=== PATIENT | female | born 1985 | race Caucasian/White ===

== ENCOUNTER 2023-09-11 20:33 | Outpatient (REF) | payer MEDICAID, SELFPAY ==
[2023-09-14 10:10] LABS: Age Gdln ACOG Testing Note (.); HPV Aptima Negative (Negative); IGP, Aptima HPV, rfx 16/18,45 Note (.)
== END 2023-09-11 20:34 | disposition home or self-care (01) ==
LOC: LAB 20:33
PROVIDERS: Visit Provider Obstetrics & Gynecology
DX: Z01.419 Encounter for gynecological examination (general) (routine) without abnormal findings (principal)
CPT/HCPCS: 87624; G0145

== ENCOUNTER 2023-09-25 11:02 | Outpatient (OUT) | payer MEDICAID, SELFPAY ==
--- NOTE | 2023-09-25 11:05 | US_ITS ---
[address] [address] Patient Name: MITRA MURPHY MRN: [id number] date: 1985 Sex: F Assigned Patient Location: Current Patient Location: Accession/Order Number: [id number] Exam Date: 09/25/2023 11:08 Report Date: 09/26/2023 00:35 At the request of: KEIKO MIRELES Procedure: US pelvis w/ transvaginal EXAMINATION: US pelvis w/ transvaginal HISTORY: Irregular Menstrual Cycle N92.6 COMPARISON: No relevant comparison available. TECHNIQUE: Transabdominal and/or transvaginal sonographic examination was performed as indicated by examination type. FINDINGS: UTERUS: Normal size and appearance. Uterus size: 8.8 x 5.1 x 3.9 cm ENDOMETRIUM: Normal homogeneous appearance. Endometrial thickness: 11 mm RIGHT OVARY: Contains a 2.2 cm benign-appearing cyst. Duplex Doppler demonstrates normal waveform and flow; resistive index 0.6. Ovary size: 3.6 x 2.8 x 2.4 cm LEFT OVARY: Normal size and appearance. Duplex Doppler demonstrates normal waveform and flow; resistive index 0.5. Ovary size: 2.8 x 2.6 x 1.3 cm CUL-DE-SAC: Unremarkable. No significant free fluid. BLADDER: Unremarkable. OTHER: None. US/US pelvis w/ transvaginal IMPRESSION: 1. No abnormal or suspicious findings to account for patient's symptoms. Electronically authenticated by: VANESA PEDROZA Date: 09/26/2023 00:35
[2023-09-25 12:17] LABS: Basophils Absolute Auto 0.1 10^3/uL (0.0-0.1); Basophils Percent Auto 0.7 % (0.2-2.0); Eosinophils Absolute Auto 0.5 10^3/uL (0.0-0.7); Eosinophils Percent Auto 7.4 % (0.9-7.0); Hemoglobin 11.8 g/dL (12.0-16.0); Immature Granulocytes Abs Auto 0.02 10^3/uL (0.00-0.03); Immature Granulocytes Pct Auto 0.3 % (0.0-0.5); Lymphocytes Absolute Auto 2.6 10^3/uL (1.2-3.8); Lymphocytes Percent Auto 35.9 % (20.5-60.0); Mean Corpuscular HGB Conc 33.7 g/dL (29.9-35.2); Mean Corpuscular Hemoglobin 31.6 pg (26.7-34.0); Mean Corpuscular Volume 93.6 fL (81.0-99.0); Mean Platelet Volume 10.6 fL (9.5-13.5); Monocytes Absolute Auto 0.5 10^3/uL (0.3-0.8); Monocytes Percent Auto 7.1 % (1.7-12.0); Neutrophils Absolute Auto 3.5 10^3/uL (1.4-6.5); Neutrophils Percent Auto 48.6 % (43.0-75.0); Platelet Count 264 10^3/uL (150-450); Red Blood Count 3.74 10^6/uL (4.20-5.40); Red Cell Distribution Width 11.9 % (11.0-15.0); White Blood Count 7.3 10^3/uL (4.0-11.0)
[2023-09-25 12:39] LABS: INR 1.03; Partial Thromboplastin Time 27.9 sec (22.3-36.2); Prothrombin Time 10.9 sec (9.0-11.6)
[2023-09-25 12:40] LABS: Estimated Average Glucose 94 mg/dL; Glycohemoglobin A1C 4.9 % (4.5-6.2)
[2023-09-25 13:01] LABS: Free T4 1.06 ng/dL (0.76-1.46)
[2023-09-25 13:08] LABS: HCG Quantitative <1 mIU/mL; Thyroid Stimulating Hormone 0.477 uIU/mL (0.358-3.740)
== END 2023-09-25 11:03 | disposition home or self-care (01) ==
LOC: US 11:02
PROVIDERS: Visit Provider Obstetrics & Gynecology
DX: N92.6 Irregular menstruation, unspecified (principal)
CPT/HCPCS: 36415; 76830; 76856; 83036; 84439; 84443; 84702; 85025; 85610; 85730

== ENCOUNTER 2024-09-16 19:24 | Outpatient (REF) | payer MEDICAID, SELFPAY ==
--- OUTSIDE RECORDS SUMMARY | 2024-09-16 19:28 | XMS_ITS | CCD ---
Author Organization [facility] Care Team Providers Care Braille Duplicating Machine Operator Name Role Phone DR KEIKO MIRELES Admitting Unavailable DR KEIKO MIRELES Attending Unavailable DR KEIKO MIRELES Consulting Unavailable KEIKO MIRELES Attending Unavailable Allergies Allergy Classification Reported Allergen(s) Allergy Type Date of Onset Reaction(s) Facility (1 source) Acetaminophen / HYDROcodone Drug Allergy 01-11-2017 [facility] Repository (1 source) Cefaclor Drug Allergy 01-11-2017 [facility] Repository (1 source) Penicillins Drug allergy (disorder) 01-11-2017 [facility] Repository Encounters Encounter Date Encounter Type Care Provider Facility Start: 10-10-2023 End: 10-10-2023 ambulatory KEIKO MIRELES Not Available Start: 09-06-2022 End: 09-06-[address] KEIKO MIRELES Facility: Payers Date Payer Category Payer Medicaid [id number] 1985 Unknown [id number] 1985 Unknown [id number] 1959 Unknown [id number] Summary Purpose Family History No Family History Records FoundNo Family History Records Found Advance Directives No Advanced Directives Records FoundNo Advanced Directives Records Found Additional Source Comments INFORMATION SOURCE (unrecogn ized section and content) DATE CREATED AUTHOR 09/06/2022 [facility] DATE CREATED AUTHOR 'S ORGANIZ ATION 10/11/2023 [facility] EPIC FOR RECORDS PERTAINING TO PATIENTS WHO ARE OR HAVE BEEN ENROLLED IN A CHEMICAL DEPENDENCY/SUBSTANCEABUSE PROGRAM, SOME INFORMATION MAY BE OMITTED. This clinical summary was aggregated from multiple sources. Caution should be exercised in using it in the provision of clinical care. This summary normalizes information from multiple sources, and as a consequence, information in this document may materially change the coding, format and clinical context of patient data. In addition, data may be omitted in some cases. CLINICAL DECISIONS SHOULD BE BASED ON THE PRIMARY CLINICAL RECORDS. [facility] [employer] [facility]. provides no warranty or guarantee of the accuracy or completeness of information in this document.
== END 2024-09-16 19:25 | disposition home or self-care (01) ==
LOC: LAB 19:24
PROVIDERS: Visit Provider Obstetrics & Gynecology
DX: Z01.419 Encounter for gynecological examination (general) (routine) without abnormal findings (principal)
CPT/HCPCS: 87624; 88175

== ENCOUNTER 2024-10-18 10:18 | Outpatient (OUT) | payer MEDICAID, SELFPAY ==
--- OUTSIDE RECORDS SUMMARY | 2024-10-18 10:21 | XMS_ITS | CCD ---
Author Organization [facility] Care Team Providers Care Flux Plant Operator Name Role Phone DR KEIKO BRENNAN Admitting Unavailable DR KEIKO BRENNAN Attending Unavailable DR KEIKO BRENNAN Consulting Unavailable Rosemarie Kang MD Unavailable KEIKO BRENNAN Attending Unavailable KEIKO BRENNAN Attending Unavailable Allergies Allergy Classification Reported Allergen(s) Allergy Type Date of Onset Reaction(s) Facility (1 source) Acetaminophen / HYDROcodone Drug Allergy 7 [facility] Repository (1 source) Cefaclor Drug Allergy 7 [facility] Repository (1 source) Penicillins Drug allergy (disorder) 7 [facility] Repository (3 sources) Cefaclor Drug Allergy 3 Rash [facility] (3 sources) penciclovir Drug Allergy 3 Hives, Itching, Rash, Shortness of breath, Swelling, Wheezing [facility] Work Phone: (3 sources) Penicillins Propensity to adverse reactions 3 Rash [facility] Medications Current Medications Medication Drug Class(es) Dates Sig (Normalized) Sig (Original) 27-1 MG tablet (3 sources) Start: 08-05-2024 End: 08-05-2025 take 1 tablet by mouth once daily 27-1 MG tablet Indications: Abnormal uterine bleeding (AUB) Take 27 mg by mouth 1 (one) time each day at the same time 30 tablet 11 08/05/2024 08/05/2025 Active Problems Problem Classification Problem Date Documented Da te Episodic/Chronic Menstrual disorders (2 sources) Irregular periods; Translations: [Irregular menstruation, unspecified] 09-16-2024 Chronic Other endocrine disorders (2 sources) Polycystic ovary syndrome; Translations: [Polycystic ovarian syndrome] 09-16-2024 Chronic Results Test Name Value Interpretation Reference Range Facil ity IGP,APTIMA HPV,AGE GDLNon AGE GDLN ACOG TESTING Note . [facility] Comment on above: TESTS RESULT FLAG UNITS REF RANGE LAB Clinician Provided Cytology Information Source.............Cervix;Endocervix No. of containers..01 ThinPrep Vial Age Algo ACOG Omaira... 31 FLAG LEGEND: L-Low Normal,H-High Normal,LL-Alert Low,HH-Alert High <-Panic Low,>-Panic High,A-Abnormal,AA-Critical Abnormal Performed at: 01 =[address] [place] [address] Nava Almaguer MD, HPV APTIMA Negative Negative [facility] e Comment on above: This nucleic acid amplification test det ects fourteen high- risk HPV types (16,18,31,33,35,39,45,51,52,56,58,59,66,68) without differentiation. Performed at: =[address] [id number] Pinking Sewing Machine Operator: Nava Almaguer MD, Phone: [phone] Performed at: [address] [id number] [employer] Machine Operator: Nava Almaguer MD, Phone: [phone] IGP, APTIMA HPV, RFX 16/18,45 Note . [facility] Comment on above: TESTS RESULT FLAG UNITS REF RANGE LAB DIAGNOSIS: 02 NEGATIVE FOR INTRAEPITHELIAL LESION OR MALIGNANCY. Specimen adequacy: 02 Satisfactory for evaluation. Endocervical and/or squamous metaplastic cells (endocervical component) are present. Performed by: 02 Rock Alonso, Clinical Psychologist ([facility]) . 02 Note: Note 02 The Pap smear is a screening test designed to aid in the detection of premalignant and malignant conditions of the uterine cervix. It is not a diagnostic procedure and should not be used as the sole means of detecting cervical cancer. Both false-positive and false-negative reports do occur. Test Methodology: Note 02 This liquid based ThinPrep(R) pap test was screened with the use of an image guided system. HPV Genotype Reflex Note 02 Criteria not met, HPV Genotype not performed. FLAG LEGEND: L-Low Normal,H-High Normal,LL-Alert Low,HH-Alert High <-Panic Low,>-Panic High,A-Abnormal,AA-Critical Abnormal Performed at: 02 [facility] [address] [address] Nava Almaguer MD, BRUSH-SPATULA CERVIX ENDOCERVIX [facility] Vital Signs Date Time Vital Sign Value Performing Clinician Yudy vu 09-16-2024 11:30-0400 Body mass index (BMI) [Ratio] 24.91 kg/m2 Keiko Mika DO Work Phone: [facility] 09-16-2024 11:30-0400 Body weight 65.83 kg Keiko Mika DO Work Phone: [facility] 09-16-2024 11:30-0400 Diastolic blood pressure 70 mm[Hg] Keiko Mika DO Work Phone: [facility] 09-16-2024 11:30-0400 Systolic blood pressure 110 mm[Hg] Keiko Mika DO Work Phone: [facility] Encounters Encounter Date Encounter Type Care Provider Facility Start: 09-16-2024 End: 09-23-2024 [facility] Result Encounter Keiko Mika DO Work Phone: [facility] External Department Unsolicited Start: 09-16-2024 End: 09-23-2024 [facility] Result Encounter Keiko Mika DO Work Phone: [facility] External Department Unsolicited Start: 09-16-2024 End: 09-16-2024 Patient encounter procedure Keiko Mika DO Work Phone: [facility] Work Phone: Start: 09-16-2024 End: 09-16-2024 Periodic preventive med est patient 18-39 yrs Keiko Mika DO Work Phone: [facility] Comment on above: Well woman exam with routine gynecological exam; PCOS (polycystic ovarian syndrome); Irregular periods/menstrual cycles Start: 09-16-2024 End: 09-16-2024 ambulatory KEIKO MIKA Not Available Start: 10-10-2023 End: 10-10-2023 ambulatory KEIKO BRENNAN Not Available Start: 09-06-2022 End: 09-06-[address] KEIKO BRENNAN Facility:H1 Procedures Date Procedure Procedure Detail Performing Clinician Start: 09-16-2024 IGP,APTIMA HPV,AGE GDLN Keiko Mika DO Work Phone: Plan of Treatment Date Care Activity Detail Author Start: 10-21-2024 End: 10-21-2024 Patient encounter procedure 10/21/2024 11:10 AM EST Office Visit [facility] [address] [place] [id number] Keiko Brennan, DO [address] [place] [address] [facility] Start: 09-16-2024 End: 09-16-2025 Antimullerian hormone (AMH) Antimullerian hormone (AMH) Lab Routine Irregular periods/menstrual cycles Expected: 09/16/2024, Expires: 09/16/2025 [facility] Comment on above: Expected: 09/16/2024 , Expires: 09/16/2025 Start: 09-16-2024 End: 09-16-2025 CBC W Auto Differential panel - Blood CBC and differential Lab Routine Irregular periods/menstrual cycles Expected: 09/16/2024 (Approximate), Expires: 09/16/2025 [facility] Comment on above: Expected: 09/16/2024 (Approximate), Expires: 09/16/2025 Start: 09-16-2024 End: 09-16-2025 DHEA DHEA Lab Routine Irregular periods/menstrual cycles Expected: 09/16/2024, Expires: 09/16/2025 [facility] Comment on above: Expected: 09/16/2024 , Expires: 09/16/2025 Start: 09-16-2024 End: 09-16-2025 DHEA-sulfate DHEA-sulfate Lab Routine Irregular periods/menstrual cycles Expected: 09/16/2024 (Approximate), Expires: 09/16/2025 [facility] Comment on above: Expected: 09/16/2024 (Approximate), Expires: 09/16/2025 Start: 09-16-2024 End: 09-16-2025 Follicle stimulating hormone Follicle stimulating hormone Lab Routine Irregular periods/menstrual cycles Expected: 09/16/2024 (Approximate), Expires: 09/16/2025 [facility] Comment on above: Expected: 09/16/2024 (Approximate), Expires: 09/16/2025 Start: 09-16-2024 End: 09-16-2025 hCG, quantitative, hCG, quantitative, Lab Routine Irregular periods/menstrual cycles Expected: 09/16/2024 (Approximate), Expires: 09/16/2025 [facility] Comment on above: Expected: 09/16/2024 (Approximate), Expires: 09/16/2025 Start: 09-16-2024 End: 09-16-2025 Hemoglobin A1c/Hemoglobin.total in Blood Hemoglobin A1c Lab Routine Irregular periods/menstrual cycles Expected: 09/16/2024 (Approximate), Expires: 09/16/2025 [facility] Comment on above: Expected: 09/16/2024 (Approximate), Expires: 09/16/2025 Start: 09-16-2024 End: 09-16-2025 Luteinizing hormone Luteinizing hormone Lab Routine Irregular periods/menstrual cycles Expected: 09/16/2024 (Approximate), Expires: 09/16/2025 [facility] Comment on above: Expected: 09/16/2024 (Approximate), Expires: 09/16/2025 Start: 09-16-2024 End: 09-16-2025 Thyrotropin [Units/volume] in Serum or Plasma TSH Lab Routine Irregular periods/menstrual cycles Expected: 09/16/2024 (Approximate), Expires: 09/16/2025 [facility] Comment on above: Expected: 09/16/2024 (Approximate), Expires: 09/16/2025 Start: 09-16-2024 End: 09-16-2025 Thyroxine (T4) free [Mass/volume] in Serum or Plasma T4, free Lab Routine Irregular periods/menstrual cycles Expected: 09/16/2024 (Approximate), Expires: 09/16/2025 [facility] Comment on above: Expected: 09/16/2024 (Approximate), Expires: 09/16/2025 Start: 09-16-2024 End: 09-16-2025 US for US PELVIS-TRANSVAG IF INDICATED Imaging Routine Irregular periods/menstrual cycles Expected: 09/16/2024 (Approximate), Expires: 09/16/2025 [facility] Comment on above: Expected: 09/16/2024 (Approximate), Expires: 09/16/2025 Start: 07-28-2024 Influenza vaccination Influenza Vacc ine (#1) [facility] Start: 2016 Screening for malign ant neoplasm of cervix [facility] Start: 2007 Screening for malign ant neoplasm of cervix Pap Smear [facility] Cytology Cervical or vaginal smear or scraping study Pap Smear Pathology and Cytology Routine Well woman exam with routine gynecological exam Ordered: 09/16/2024 [facility] Work Phone: Comment on above: Ordered: 09/16/2024 Human papilloma viru s DNA [Presence] in Unspecified specimen by Probe with amplification HPV DNA probe, amplified Microbiology Routine Well woman exam with routine gynecological exam Ordered: 09/16/2024 [facility] Comment on above: Ordered: 09/16/2024 Payers Date Payer Category Payer Medicaid [facility] [id number] 2023 Medicaid [id number] 1985 Unknown [id number] 1985 Unknown [id number] 1985 Unknown [id number] 1959 Unknown [id number] Social History Date Type Detail Facility Tobacco smoking stat [facility] Tobacco smoking consumption unknown [facility] Start: 1985 Sex assigned at Female [facility] Start: 09-04-2023 Gender identity Identifies as female gender (finding) [facility] Start: 09-04-2023 Sexual orientation Bisexual (finding ) [facility] History of Present illness Narrative 09-16-2024 Arlette Whelan, HOTEL ENGINEER - 09/16/2024 11:00 AM EDT Note Date & Type Note Facility 09-16-2024 History of Presen t illness Narrative Reason for Appointment: Patient ID: Heather Whitten is a 38 y.o. female who presents for Well Women Visit Patient presents today for Annual Exam. MEDICATIONS Current Outpatient Medications Medication Instructions 27-1 MG tablet 27 mg, Oral, Every 24 hours ALLERGIES Allergies Allergen Reactions Penciclovir Hives, Itching, Rash, Shortness of breath, Swelling and Wheezing Ceclor [Cefaclor] Rash Penicillins Rash PROBLEMS Active Ambulatory Problems Diagnosis Date Noted No Active Ambulatory Problems Resolved Ambulatory Problems Diagnosis Date Noted No Resolved Ambulatory Problems Past Medical History: Diagnosis Date Abnormal uterine bleeding Asthma (CMS/HCC) Emotional sensitivity HISTORY PAST MEDICAL HISTORY SOCIAL HISTORY Past Medical History: Diagnosis Date Abnormal uterine bleeding Asthma (CMS/HCC) Emotional sensitivity Social History Tobacco Use Smoking status: Not on file Smokeless tobacco: Not on file Substance Use Topics Alcohol use: Not on file Drug use: Not on file FAMILY HISTORY Family History Problem Relation Name Age of Onset Diabetes Mother Heart disease Mother Asthma Daughter SURGICAL HISTORY Past Surgical History: Procedure Laterality Date PAP SMEAR 09/01/2021 normal REVIEW OF SYSTEMS Review of Systems: Review of Systems All other systems reviewed and are negative. OBJECTIVE Objective: Physical Exam Constitutional: Appearance: Normal appearance. She is well-developed. Genitourinary: Vulva normal. Breasts: Breasts are soft. Right: Normal. Left: Normal. Cardiovascular: Rate and Rhythm: Normal rate and regular rhythm. Pulmonary: Effort: Pulmonary effort is normal. Breath sounds: Normal breath sounds. Abdominal: General: Bowel sounds are normal. There is no distension. Palpations: Abdomen is soft. Tenderness: There is no abdominal tenderness. There is no guarding or rebound. Musculoskeletal: General: No swelling. Normal range of motion. Right lower leg: No edema. Left lower leg: No edema. Neurological: Mental Status: She is alert and oriented to person, place, and time. Skin: General: Skin is warm and dry. Psychiatric: Mood and Affect: Mood normal. Behavior: Behavior normal. Vitals and nursing note reviewed. Exam conducted with a office clerk present. Vitals: Estimated body mass index is 24.91 kg/m as calculated from the following: Height as of 09/11/23: 5' 4 . Weight as of this encounter: 145 lb 1.9 oz. BP: 110/70 Patient's last menstrual period was 09/04/2024. ASSESSMENT & PLAN ICD-10-CM 1. Well woman exam with routine gynecological exam Z01.419 Pap Smear HPV DNA probe, amplified Annual Exam: Patient presents today for an annual exam. Patient states she is doing well and has complaints of NO cycles. Pap was obtained without difficulty. Patient desires to conceive and would like to have cycles. Orders Placed This Encounter Procedures HPV DNA probe, amplified Follow Up: Patient is to return in one year for annual unless needed otherwise. Return to clinic in 4 weeks for fertility after having labs drawn, ultrasound obtained and will then discuss Femara. Documented by Arlette Whelan LPN on behalf of: Keiko Brennan DO documented in this encounter [facility] Evaluation note Note Date & Type Note Facility Evaluation note Diagnosis Well woman exam with routine gynecological exam Routine gynecological examination PCOS (polycystic ovarian syndrome) Polycystic ovaries Irregular periods/menstrual cycles documented in this encounter [facility] Summary Purpose Family History No Family History Records FoundNo Family History Records Found Advance Directives No Advanced Directives Records FoundNo Advanced Directives Records Found Additional Source Comments INFORMATION SOURCE (unrecogn ized section and content) DATE CREATED AUTHOR 09/06/2022 [facility] DATE CREATED AUTHOR AUTHOR'S ORGANIZ ATION 09/17/2024 [facility]ists EPIC Reason for Visit (unrecogniz ed section and content) Reason Comments Well Women Visit Care Teams (unrecognized sec tion and content) Flux Plant Operator Relationship Specialty Start Date End Date Rosemarie Kang MD [address] [place] [address] PCP - [facility]OM[facility] Esquivel TOOL PUSHER 02/26/24 Flux Plant Operator Relationship Specialty Start Date End Date Rosemarie Kang MD [address] [place] [address] PCP - [facility] Esquivel TOOL PUSHER 02/26/24 FOR RECORDS PERTAINING TO PATIENTS WHO ARE [...] BE BASED ON THE PRIMARY CLINICAL RECORDS. [facility] [employer] [facility]. provides no warranty or guarantee of the accuracy or completeness of information in this document.
[2024-10-18 10:33] LABS: Basophils Absolute Auto 0.1 10^3/uL (0.0-0.1); Basophils Percent Auto 0.8 % (0.2-2.0); Eosinophils Absolute Auto 0.4 10^3/uL (0.0-0.7); Eosinophils Percent Auto 6.7 % (0.9-7.0); Hematocrit 37.6 % (36.0-48.0); Hemoglobin 12.6 g/dL (12.0-16.0); Immature Granulocytes Abs Auto 0.02 10^3/uL (0.00-0.03); Immature Granulocytes Pct Auto 0.3 % (0.0-0.5); Lymphocytes Absolute Auto 2.5 10^3/uL (1.2-3.8); Lymphocytes Percent Auto 40.8 % (20.5-60.0); Mean Corpuscular HGB Conc 33.5 g/dL (29.9-35.2); Mean Corpuscular Hemoglobin 30.9 pg (26.7-34.0); Mean Corpuscular Volume 92.2 fL (81.0-99.0); Mean Platelet Volume 8.8 fL (9.5-13.5); Monocytes Absolute Auto 0.5 10^3/uL (0.3-0.8); Monocytes Percent Auto 8.7 % (1.7-12.0); Neutrophils Absolute Auto 2.6 10^3/uL (1.4-6.5); Neutrophils Percent Auto 42.7 % (43.0-75.0); Platelet Count 387 10^3/uL (150-450); Red Blood Count 4.08 10^6/uL (4.20-5.40); Red Cell Distribution Width 11.9 % (11.0-15.0)
--- NOTE | 2024-10-18 10:35 | US_ITS ---
[address] [address] Patient Name: MITRA MURPHY MRN: [id number] date: 1985 Sex: F Assigned Patient Location: Current Patient Location: Accession/Order Number: [id number] Exam Date: 10/18/2024 11:10 Report Date: 10/19/2024 05:16 At the request of: KEIKO MIRELES Procedure: US pelvis w/ transvaginal EXAMINATION: US pelvis w/ transvaginal HISTORY: Pelvic Pain , irregular menstrual cycle COMPARISON: Ultrasound pelvis 09/25/2023 TECHNIQUE: Transabdominal and/or transvaginal sonographic examination was performed as indicated by examination type. FINDINGS: UTERUS: Normal size and appearance. Uterus size: 9.1 x 3.9 x 5.2 cm ENDOMETRIUM: Normal homogeneous appearance. Endometrial thickness: 3 mm RIGHT OVARY: Contains a 1.3 cm dominant follicle. Normal size and appearance of the ovary. Duplex Doppler demonstrates normal waveform and flow; resistive index 0.7. Ovary size: 2.8 x 1.4 x 3.0 cm LEFT OVARY: Normal size and appearance. Duplex Doppler demonstrates normal waveform and flow; resistive index 0.5. Ovary size: 3.5 x 1.9 x 1.6 cm CUL-DE-SAC: Unremarkable. No significant free fluid. BLADDER: Unremarkable. OTHER: None. US/US pelvis w/ transvaginal IMPRESSION: 1. Normal pelvic ultrasound. No abnormal or suspicious findings. Electronically authenticated by: VANESA PEDROZA Date: 10/19/2024 05:16
[2024-10-18 11:21] LABS: Estimated Average Glucose 100 mg/dL; Glycohemoglobin A1C 5.1 % (4.5-6.2)
[2024-10-18 11:26] LABS: Free T4 1.05 ng/dL (0.76-1.46)
[2024-10-18 11:30] LABS: HCG Quantitative <1 mIU/mL; Thyroid Stimulating Hormone 0.529 uIU/mL (0.358-3.740)
[2024-10-19 04:07] LABS: Luteinizing Hormone(LH) 6.5 mIU/mL (.)
[2024-10-21 04:07] LABS: Anti-Mullerian Hormone (AMH) 1.48 ng/mL (.)
== END 2024-10-18 10:19 | disposition home or self-care (01) ==
LOC: US 10:18
PROVIDERS: Visit Provider Obstetrics & Gynecology
DX: N92.6 Irregular menstruation, unspecified (principal)
CPT/HCPCS: 36415; 76830; 76856; 82397; 82626; 82627; 83001; 83002; 83036; 84439; 84443; 84702; 85025

== ENCOUNTER 2025-01-27 09:16 | Outpatient (OUT) | payer MEDICAID, SELFPAY ==
--- OUTSIDE RECORDS SUMMARY | 2025-01-27 09:34 | XMS_ITS | CCD ---
Author Organization [facility] Care Team Providers Care Traffic Ii Manager Name Role Phone DR KEIKO BRENNAN Admitting Unavailable DR KEIKO BRENNAN Attending Unavailable DR KEIKO BRENNAN Consulting Unavailable Rosemarie Kang MD Unavailable KEIKO BRENNAN Attending Unavailable KEIKO BRENNAN Attending Unavailable Allergies Allergy Classification Reported Allergen(s) Allergy Type Date of Onset Reaction(s) Facility (1 source) Acetaminophen / HYDROcodone Drug Allergy 7 [facility] (1 source) Cefaclor Drug Allergy 7 [facility] (1 source) Penicillins Drug allergy (disorder) 7 [facility] (7 sources) Cefaclor Drug Allergy 3 Rash [facility] (7 sources) penciclovir Drug Allergy 3 Hives, Itching, Rash, Shortness of breath, Swelling, Wheezing [facility] Work Phone: (7 sources) Penicillins Propensity to adverse reactions 3 Rash [facility] Medications Current Medications Medication Drug Class(es) Dates Sig (Normalized) Sig (Original) 27-1 MG tablet (7 sources) Start: 08-05-2024 End: 08-05-2025 take 1 tablet by mouth once daily 27-1 MG tablet Indications: Abnormal uterine bleeding (AUB) Take 27 mg by mouth 1 (one) time each day at the same time 30 tablet 11 08/05/2024 08/05/2025 Active Problems Problem Classification Problem Date Documented Da te Episodic/Chronic Menstrual disorders (4 sources) Irregular periods; Translations: [Irregular menstruation, unspecified] 09-16-2024 Chronic Other endocrine disorders (2 sources) Polycystic ovary syndrome; Translations: [Polycystic ovarian syndrome] 09-16-2024 Chronic Results Test Name Value Interpretation Reference Range Facility ALL CBC WITH AUTO DIFFon BASOPHILS ABSOLUTE AUTO 0.1 [facility] Basophils/100 WBC (Bld) 0.8 % 0.2 - 2.0 % [facility] Eosinophils/100 WBC (Bld) 6.7 % 0.9 - 7.0 % [facility] Erythrocyte distribution width (RBC) [Ratio] 11.9 % 11.0 - 15.0 % [facility] Hematocrit (Bld) [Volume fraction] 37.6 % 36.0 - 48.0 % [facility] Hemoglobin (Bld) [Mass/Vol] 12.6 g/dL 12.0 - 16.0 g/dL [facility] IMMATURE GRANULOCYTES ABS AUTO 0.02 [facility] Immature granulocytes/100 WBC (Bld) 0.3 % 0.0 - 0.5 % [facility] Interpretation and review of laboratory results Abnormal [facility] LYMPHOCYTES ABSOLUTE AUTO 2.5 [facility] Lymphocytes/100 WBC (Bld) 40.8 % 20.5 - 60.0 % [facility] MCH (RBC) [Entitic mass] 30.9 pg 26.7 - 34.0 pg [facility] MCHC (RBC) [Mass/Vol] 33.5 g/dL 29.9 - 35.2 g/dL [facility] MCV (RBC) [Entitic vol] 92.2 fL 81.0 - 99.0 fL [facility] MONOCYTES ABSOLUTE AUTO 0.5 [facility] Monocytes/100 WBC (Bld) 8.7 % 1.7 - 12.0 % [facility] NEUTROPHILS ABSOLUTE AUTO 2.6 [facility] Neutrophils/100 WBC (Bld) 42.7 % Low 43.0 - 75.0 % [facility] Platelet mean volume (Bld) [Entitic vol] 8.8 fL Low 9.5 - 13.5 [facility]L [facility] PLT 387 [facility] RBC 4.08 Low [facility] TB WBC 6 [facility] IGP,APTIMA HPV,AGE GDLNon AGE GDLN ACOG TESTING Note . [facility] Comment on above: TESTS RESULT FLAG UN ITS REF RANGE LAB Clinician Provided Cytology Information Source.............Cervix;Endocervix No. of containers..01 ThinPrep Vial Age Algo ACOG Omaira... FLAG LEGEND: L-Low Normal,H-High Normal,LL-Alert Low,HH-Alert High <-Panic Low,>-Panic High,A-Abnormal,AA-Critical Abnormal Performed at: 01 =G [address] [address] Nava Almaguer MD, HPV APTIMA Negative Negative [facility] Comment on above: This nucleic acid am plification test detects fourteen high- risk HPV types (16,18,31,33,35,39,45,51,52,56,58,59,66,68) without differentiation. Performed at: =G - [facility] [id number] Canary Breeder: Nava Almaguer MD, Phone: [phone] Performed at: - [address] [id number] Canary Breeder: Nava Almaguer MD, Phone: [phone] IGP, APTIMA HPV, RFX 16/18,45 Note . [facility] Comment on above: TESTS RESULT FLAG [facility] REF RANGE LAB DIAGNOSIS: 02 NEGATIVE FOR INTRAEPITHELIAL LESION OR MALIGNANCY. Specimen adequacy: 02 Satisfactory for evaluation. Endocervical and/or squamous metaplastic cells (endocervical component) are present. Performed by: 02 Rock Alonso, Machining Supervisor ([facility]) . 02 Note: Note 02 [...] <-Panic Low,>-Panic High,A-Abnormal,AA-Critical Abnormal Performed at: [address] [address] Nava Almaguer MD, BRUSH-SPATULA CERVIX ENDOCERVIX [facility] Vital Signs Date Time Vital Sign Value Performing Clinician Yudy vu 10-21-2024 11:36-0500 Body mass index (BMI) [Ratio] 26.09 kg/m2 Percolate Phone: [facility] 10-21-2024 11:36-0500 Body weight 68.95 kg Percolate Phone: [facility] 10-21-2024 11:36-0500 Diastolic blood pressure 70 mm[Hg] Keiko Mika DO Work Phone: [facility] 10-21-2024 11:36-0500 Systolic blood pressure 130 mm[Hg] Keiko Mika DO Work Phone: [facility] 09-16-2024 11:30-0400 Body mass index (BMI) [Ratio] 24.91 kg/m2 Keiko Mika DO Work Phone: [facility] 09-16-2024 11:30-0400 Body weight 65.83 kg Keiko Mika DO Work Phone: [facility] 09-16-2024 11:30-0400 Diastolic blood pressure 70 mm[Hg] Keiko Mika DO Work Phone: [facility] 09-16-2024 11:30-0400 Systolic blood pressure 110 mm[Hg] Keiko Mika DO Work Phone: [facility] Healthcare Encounters Encounter Date Encounter Type Care Provider Facility Start: 10-21-2024 End: 10-21-2024 Bamboo flowsheet Keiko Mika DO Work Phone: [facility] Start: 10-21-2024 End: 10-21-2024 Bamboo flowsheet Keiko Mika DO Work Phone: [facility] Start: 10-21-2024 End: 10-21-2024 Office outpatient visit 15 minutes Keiko Mika DO Work Phone: [facility] Comment on above: Menorrhagia with irr egular cycle Start: 10-21-2024 End: 10-21-2024 ambulatory KEIKO MIKA Not Available Start: 10-18-2024 End: 10-18-2024 [facility] Result Encounter Keiko Mika DO Work Phone: [facility] External Department Unsolicited Start: 10-18-2024 End: 10-18-2024 [facility]ync Result Encounter Keiko Mika DO Work Phone: [facility] External Department Unsolicited Start: 09-16-2024 End: 09-23-2024 [facility] Result Encounter Keiko Brennan DO Work Phone: [facility] External Department Unsolicited Start: 09-16-2024 End: 09-23-2024 [facility] Result Encounter Keiko Brennan DO Work Phone: [facility] External Department Unsolicited Start: 09-16-2024 End: 09-16-2024 Patient encounter procedure Keiko Brennan DO Work Phone: [facility] Work Phone: Start: 09-16-2024 End: 09-16-2024 Periodic preventive med est patient 18-39 yrs Keiko Brennan DO Work Phone: [facility] Comment on above: Well woman exam with routine gynecological exam; PCOS (polycystic ovarian syndrome); Irregular periods/menstrual cycles Start: 09-16-2024 End: 09-16-2024 ambulatory KEIKO BRENNAN Not Available Start: 09-06-2022 End: 09-06-[address] KEIKO BRENNAN Facility:H1 Procedures Date Procedure Procedure Detail Performing Clinician Start: 10-18-2024 ALL CBC WITH AUTO DIFF Keiko Mika DO Work Phone: Start: 09-16-2024 IGP,APTIMA HPV,AGE GDLN Keiko Brennan DO Work Phone: Start: 09-16-2024 Microscopic observat ion [Identifier] in Cervix by Cyto stain Keiko Mika DO Work Phone: Plan of Treatment Date Care Activity Detail Author Start: 09-16-2027 Screening for malign ant neoplasm of cervix [facility] Start: 02-18-2025 End: 02-18-2025 Patient encounter procedure 02/18/2025 10:10 AM EDT Office Visit [facility] [address] [place] [id number] eKiko Brennan DO [address], [place] [id number] [facility] Start: 10-21-2024 End: 10-21-2024 Patient encounter procedure [facility] Comment on above: Arrived Start: 09-16-2024 End: 09-16-2025 Antimullerian hormone (AMH) Antimullerian hormone (AMH) Lab Routine Irregular periods/menstrual cycles Expected: 09/16/2024, Expires: 09/16/2025 [facility] Comment on above: Expected: 09/16/2024 , Expires: 09/16/2025 Start: 09-16-2024 End: 09-16-2025 CBC W Auto Differential panel - Blood CBC and differential Lab Routine Irregular periods/menstrual cycles Expected: 09/16/2024 (Approximate), Expires: 09/16/2025 [facility] Comment on above: Expected: 09/16/2024 (Approximate), Expires: 09/16/2025 Start: 09-16-2024 End: 09-16-2025 DHEA DHEA Lab Routine Irregular periods/menstrual cycles Expected: 09/16/2024, Expires: 09/16/2025 [facility] Comment on above: Expected: 09/16/2024 , Expires: 09/16/2025 Start: 09-16-2024 End: 09-16-2025 DHEA-sulfate DHEA-sulfate Lab Routine Irregular periods/menstrual cycles Expected: 09/16/2024 (Approximate), Expires: 09/16/2025 [facility] Healthcare Comment on above: Expected: 09/16/2024 (Approximate), Expires: 09/16/2025 Start: 09-16-2024 End: 09-16-2025 Follicle stimulating hormone Follicle stimulating hormone Lab Routine Irregular periods/menstrual cycles Expected: 09/16/2024 (Approximate), Expires: 09/16/2025 [facility] Comment on above: Expected: 09/16/2024 (Approximate), Expires: 09/16/2025 Start: 09-16-2024 End: 09-16-2025 hCG, quantitative, hCG, quantitative, Lab Routine Irregular periods/menstrual cycles Expected: 09/16/2024 (Approximate), Expires: 09/16/2025 [facility] Comment on above: Expected: 09/16/2024 (Approximate), Expires: 09/16/2025 Start: 09-16-2024 End: 09-16-2025 Hemoglobin A1c/Hemoglobin.total in Blood Hemoglobin A1c Lab Routine Irregular periods/menstrual cycles Expected: 09/16/2024 (Approximate), Expires: 09/16/2025 [facility] Comment on above: Expected: 09/16/2024 (Approximate), Expires: 09/16/2025 Start: 09-16-2024 End: 09-16-2025 Luteinizing hormone Luteinizing hormone Lab Routine Irregular periods/menstrual cycles Expected: 09/16/2024 (Approximate), Expires: 09/16/2025 [facility] Comment on above: Expected: 09/16/2024 (Approximate), Expires: 09/16/2025 Start: 09-16-2024 End: 09-16-2025 Thyrotropin [Units/volume] in Serum or Plasma TSH Lab Routine Irregular periods/menstrual cycles Expected: 09/16/2024 (Approximate), Expires: 09/16/2025 [facility] Comment on above: Expected: 09/16/2024 (Approximate), Expires: 09/16/2025 Start: 09-16-2024 End: 09-16-2025 Thyroxine (T4) free [Mass/volume] in Serum or Plasma T4, free Lab Routine Irregular periods/menstrual cycles Expected: 09/16/2024 (Approximate), Expires: 09/16/2025 [facility] Comment on above: Expected: 09/16/2024 (Approximate), Expires: 09/16/2025 Start: 09-16-2024 End: 09-16-2025 US for US PELVIS-TRANSVAG IF INDICATED Imaging Routine Irregular periods/menstrual cycles Expected: 09/16/2024 (Approximate), Expires: 09/16/2025 [facility] Comment on above: Expected: 09/16/2024 (Approximate), Expires: 09/16/2025 Start: 07-28-2024 Influenza vaccination Influenza Vacc ine (#1) [facility] Start: 2016 Screening for malign ant neoplasm of cervix [facility] Start: 2007 Screening for malign ant neoplasm of cervix Pap Smear [facility] Cytology Cervical or vaginal smear or scraping study Pap Smear Pathology and Cytology Routine Well woman exam with routine gynecological exam Ordered: 09/16/2024 [facility] Work Phone: Comment on above: Ordered: 09/16/2024 Human papilloma viru s DNA [Presence] in Unspecified specimen by Probe with amplification HPV DNA probe, amplified Microbiology Routine Well woman exam with routine gynecological exam Ordered: 09/16/2024 [facility] Comment on above: Ordered: 09/16/2024 Payers Date Payer Category Payer Medicaid [facility] [id number] 2023 Medicaid [id number] 1985 Unknown [id number] 1986 Unknown [id number] 1986 Unknown [id number] 1959 Unknown [id number] Social History Date Type Detail Facility Tobacco smoking stat [facility] Tobacco smoking consumption unknown [facility] Start: 1985 Sex assigned at Female [facility] Start: 09-04-2023 Gender identity Identifies as female gender (finding) [facility] Start: 09-04-2023 Sexual orientation Bisexual (finding ) [facility] History of Present illness Narrative 10-21-2024 Carolyn Edwards LPN - 10/21/2024 11:10 AM EST Note Date & Type Note Facility 10-21-2024 History of Presen t illness Narrative Reason for Appointment: Patient ID: Heather Whitten is a 38 y.o. female who presents for Menorrhagia Patient presents today for Follow up appointment to discuss results. and Fertility Follow Up appointment. MEDICATIONS Current Outpatient Medications Medication Instructions 27-1 [...] SYSTEMS Review of Systems: Review of Systems Constitutional: Negative. HENT: Negative. Eyes: Negative. Respiratory: Negative. Cardiovascular: Negative. Gastrointestinal: Negative. Genitourinary: Negative. Musculoskeletal: Negative. Skin: Negative. Neurological: Negative. All other systems reviewed and are negative. Hematological: Negative. Endocrine: Negative. Allergic/Immunologic: Negative. OBJECTIVE Objective: Physical Exam Constitutional: Appearance: Normal appearance. She is well-developed. Cardiovascular: Rate and Rhythm: Normal rate and [...] nursing note reviewed. Exam conducted with a developmental therapist present. Vitals: Estimated body mass index is 26.09 kg/m as calculated from the following: Height as of 09/11/23: 5' 4 . Weight as of this encounter: 152 lb. BP: 130/70 Patient's last menstrual period was 10/13/2024. ASSESSMENT & PLAN ICD-10-CM 1. Menorrhagia with irregular cycle N92.1 Patient presents today to discuss fertility. Patient was instructed to call the office once menstrual cycle begins so femara can be called into patients pharmacy. Patient has been instructed to take Femara on days 3-7 of cycle. On day 21 of cycle patient is to have progesterone labs drawn. Patient was advised to have intercourse on days 12, 14, 16, 18, and 20 of cycle. We will do three rounds of Femara and if patient has not conceived by then, we will perform HSG. Patient has voiced understanding and will call our office for any further questions/concerns. Reviewed labs and ultrasound with pt in detail. No orders of the defined types were placed in this encounter. Follow Up: 4 months Documented by Carolyn Edwards LPN on behalf of: Keiko Brennan DO documented in this encounter [facility] History of Present illness Narrative 09-16-2024 Arlette Whelan LPN - 09/16/2024 11:00 AM EDT Note Date [...] nursing note reviewed. Exam conducted with a developmental therapist present. Vitals: Estimated body mass index is [...] cycles documented in this encounter [facility] Evaluation note Note Date & Type Note Facility Evaluation note Diagnosis Menorrhagia with irregular cycle documented in this encounter [facility] Summary Purpose Family History No Family History Records FoundNo Family History Records Found Advance Directives No Advanced Directives Records FoundNo Advanced Directives Records Found Additional Source Comments INFORMATION SOURCE (unrecogn ized section and content) DATE CREATED AUTHOR 09/06/2022 [facility] DATE CREATED AUTHOR AUTHOR'S ORGANIZ ATION 10/23/2024 [facility] Specialists EPIC Reason for Visit (unrecogniz ed section and content) Reason Comments Well Women Visit Reason Comments Menorrhagia Care Teams (unrecognized sec tion and content) Traffic Ii Manager Relationship Specialty Start Date End Date Rosemarie Kang MD [address] [place] [address] PCP - JOHN Esquivel [facility] 02/26/24 Traffic Ii Manager Relationship Specialty Start Date End Date Rosemarie Kang MD [address] [place] [address] PCP - JOHN Esquivel [facility] 02/26/24 Traffic Ii Manager Relationship Specialty Start Date End Date oRsemarie Kang MD [address] [place] [address] PCP - JOHN Esquivel [facility] 02/26/24 FOR RECORDS PERTAINING TO PATIENTS WHO [...] BE BASED ON THE PRIMARY CLINICAL RECORDS. [facility] [facility]. provides no warranty or guarantee of the accuracy or completeness of information in this document.
[2025-01-28 04:07] LABS: Progesterone 19.9 ng/mL (.)
== END 2025-01-27 09:17 | disposition home or self-care (01) ==
LOC: LAB 09:17
PROVIDERS: Visit Provider Obstetrics & Gynecology
DX: N97.0 Female infertility associated with anovulation (principal)
CPT/HCPCS: 36415; 84144

== ENCOUNTER 2025-02-24 11:51 | Outpatient (OUT) | payer MEDICAID, SELFPAY ==
[2025-02-25 04:14] LABS: Progesterone 20.5 ng/mL (.)
== END 2025-02-24 11:52 | disposition home or self-care (01) ==
LOC: LAB 11:52
PROVIDERS: Visit Provider Obstetrics & Gynecology
DX: N97.0 Female infertility associated with anovulation (principal)
CPT/HCPCS: 36415; 84144

== ENCOUNTER 2025-03-26 08:57 | Outpatient (OUT) | payer MEDICAID, SELFPAY ==
[2025-03-27 08:08] LABS: Progesterone 20.6 ng/mL (.)
== END 2025-03-26 08:58 | disposition home or self-care (01) ==
LOC: LAB 09:00
PROVIDERS: Visit Provider Obstetrics & Gynecology
DX: N97.0 Female infertility associated with anovulation (principal)
CPT/HCPCS: 36415; 84144

== ENCOUNTER 2025-04-25 09:18 | Outpatient (OUT) | payer MEDICAID, SELFPAY ==
--- OUTSIDE RECORDS SUMMARY | 2025-04-25 09:21 | XMS_ITS | Encounter Summary ---
Author Organization [facility] Address [address] [facility] [place] [address] Care Team Providers Care Excellence Consultant Name Role Phone Rosemarie Kang MD Unavailable [phone] Encounter Details Date Type Department Care Team (Late st Contact Info) Description 09/24/2024 Orders Only [facility] [address] [place] [phone] Mckenzie Perez LPN [address] [place], [place] [id number] Social History Tobacco Use Types Packs/Day Years Used Date Smoking Tobacco: Never Assessed Comments Unknown Sex and Gender Information Value Date Recorded Sex Assigned at Female 09/04/2023 9:07 AM EDT Legal Sex Female 11:47 PM EDT Gender Identity Female 09/04/2023 9:07 AM EDT Sexual Orientation Bisexual 09/04/2023 9: 07 AM EDT documented as of this encounter Plan of Treatment Not on file documented as of this encounter Procedures Procedure Name Priority Date/Time Associated Diagnosis Comments PAP SMEAR Routine 09/16/2024 12:00 AM EDT documented in this encounter Results * Pap Smear (09/16/2024 12:00 AM EDT) Swab Cervical swab / Unknown us [facility] Nurse LAB CYTOLOGY ORDERABLES Final Result EXTERNAL LAB documented in this encounter Visit Diagnoses Not on filedocumented in this encounter Care Teams Excellence Consultant Relationship Specialty Start Date End Date Rosemarie Kang MD [address] [place] [address] PCP - [facility] SUPERVISOR REMELT 02/26/24 documented as of this encounter
--- OUTSIDE RECORDS SUMMARY | 2025-04-25 09:21 | XMS_ITS | Encounter Summary ---
Author Organization [facility] Address [address] [place] [address] Care Team Providers Care Microbiology Manager Name Role Phone Rosemarie Kang MD Unavailable Reason for Visit * Reason Comments Med Refill Encounter Details Date Type Department Care Team (Late st Contact Info) Description 02/05/2025 Refill [facility] OB [address] [place] [phone] Ebenezer Brennan DO [address] [facility] [address] Alecia Chao, [facility]11 Anovulation Social History Tobacco Use Types Packs/Day Years [...] on file documented as of this encounter Visit Diagnoses Diagnosis Anovulation Female infertility associated with anovulation documented in this encounter Care Teams Microbiology Manager Relationship Specialty Start Date End Date Rosemarie Kang MD [address] [place] [address] PCP - [facility] CHEMICAL PLANT WORKER 02/26/24 documented as of this encounter
--- OUTSIDE RECORDS SUMMARY | 2025-04-25 09:21 | XMS_ITS | Encounter Summary ---
Author Organization [facility] Address [address] [place] [address] Care Team Providers Care Band Aid Machine Operator Name Role Phone RichjoseRosemarie MD Unavailable Encounter Details Date Type Department Care Team (Late st Contact Info) Description 09/26/2023 Clinisync Result Encounter [facility] External Department Unsolicited Ebenezer Brennan, DO [address] [facility] [place] [address] Social History Tobacco Use Types Packs/Day Years Used Date Smoking Tobacco: Never Assessed Comments Unknown Sex and Gender Information Value Date Recorded Sex Assigned at Female 09/04/2023 9:07 AM EDT Legal Sex Female 11:47 PM EDT Gender Identity Female 09/04/2023 9:07 AM EDT Sexual Orientation Bisexual 09/04/2023 9: 07 AM EDT COVID-19 Exposure Response Date Recorded In the last 10 days, have yo u been in contact with someone who was confirmed or suspected to have Coronavirus/COVID-19? No / Unsure 09/05/2023 6:07 PM EDT documented as of this encounter Plan of Treatment Not on file documented as of this encounter Procedures Procedure Name Priority Date/Time Associated Diagnosis Comments US PELVIS W/ TRANSVAGINAL 09/26/2023 12:35 AM EDT documented in this encounter Results * US PELVIS W/ TRANSVAGINAL (09/26/2023 12:35 AM EDT) Anatomical Region Laterality Modality Other 09/26/2023 12:3 5 AM EDT Narrative 09/26/2023 12:35 AM EDT The [address] [address] Ultrasound Report Signed Patient: Alysia Murphy MR#: [id number] : 1985 Acct:[id number] Age/Sex: 37 / F ADM Date: 09/25/23 Loc: US Attending Dr: Ebenezer Brennan D.O. Ordering Physician: Ebenezer Brennan D.O. Date of Service: 09/25/23 Procedure(s): US pelvis w/ transvaginal Accession Number(s): [id number] cc: Ebenezer Brennan D.O.; Physician,Non-Staff Clotilde The [address] [address] Patient Name: ALYSIA MURPHY MRN: [id number] date: 1985 Sex: F Assigned Patient Location: US Current Patient Location: Accession/Order Number: [id number] Exam Date: 09/25/2023 11:08 Report Date: 09/26/2023 00:35 At the request of: EBENEZER BRENNAN Procedure: US pelvis w/ transvaginal EXAMINATION: US pelvis w/ transvaginal HISTORY: Irregular Menstrual Cycle N92.6 COMPARISON: No relevant comparison available. TECHNIQUE: Transabdominal and/or transvaginal sonographic examination was performed as indicated by examination type. FINDINGS: UTERUS: Normal size and appearance. Uterus size: 8.8 x 5.1 x 3.9 cm ENDOMETRIUM: Normal homogeneous appearance. Endometrial thickness: 11 mm RIGHT OVARY: Contains a 2.2 cm benign-appearing cyst. Duplex Doppler demonstrates normal waveform and flow; resistive index 0.6. Ovary size: 3.6 x 2.8 x 2.4 cm LEFT OVARY: Normal size and appearance. Duplex Doppler demonstrates normal waveform and flow; resistive index 0.5. Ovary size: 2.8 x 2.6 x 1.3 cm CUL-DE-SAC: Unremarkable. No significant free fluid. BLADDER: Unremarkable. OTHER: None. US/US pelvis w/ transvaginal IMPRESSION: 1. No abnormal or suspicious findings to account for patient's symptoms. Electronically authenticated by: GUY GUZMAN Date: 09/26/2023 00:35 Dictated By: Guy Guzman M.D. Signed By: 09/26/23 0149 DD/ 0035 TD/TT: Gluing Machine Offbearer: Procedure Note Radiology, Radiologist, - 09/26/2023 [place] [address] Ultrasound Report Signed Patient: Alysia Murphy TMR#: [id number] : 1985Acct:[id number] Age/Sex: 37 / FADM Date: 09/25/23 Loc: US Attending Dr: Ebenezer Brennan D.O. Ordering Physician: Ebenezer Brennan D.O. Date of Service: 09/25/23 Procedure(s): US pelvis w/ transvaginal Accession Number(s): [id number] cc: Ebenezer Brennan D.O.; Physician,Non-Staff Clotilde The [place] [id number] Patient Name: ALYSIA MURPHY MRN: [facility]:[id number] date: 1985 Sex: F Assigned Patient Location: US Current Patient Location: Accession/Order Number: [id number] Exam Date: 09/25/2023 11:08 Report Date: 09/26/2023 00:35 At the request of: EBENEZER BRENNAN Procedure: US pelvis w/ transvaginal EXAMINATION: US pelvis w/ transvaginal HISTORY: Irregular Menstrual Cycle N92.6 COMPARISON: No relevant comparison available. TECHNIQUE: Transabdominal and/or transvaginal sonographic examination was performed as indicated by examination type. FINDINGS: UTERUS: Normal size and appearance. Uterus size: 8.8 x 5.1 x 3.9 cm ENDOMETRIUM: Normal homogeneous appearance. Endometrial thickness: 11 mm RIGHT OVARY: Contains a 2.2 cm benign-appearing cyst. Duplex Doppler demonstrates normal waveform and flow; resistive index 0.6. Ovary size:3.6 x 2.8 x 2.4 cm LEFT OVARY: Normal size and appearance. Duplex Doppler demonstrates normal waveform and flow; resistive index 0.5. Ovary size: 2.8 x 2.6 x 1.3 cm CUL-DE-SAC: Unremarkable. No significant free fluid. BLADDER: Unremarkable. OTHER: None. US/US pelvis w/ transvaginal IMPRESSION: 1. No abnormal or suspicious findings to account for patient's symptoms. Electronically authenticated by: GUY GUZMAN Date: 09/26/2023 00:35 Dictated By: Guy Guzman M.D. Signed By:09/26/23 0149 DD/ 0035 TD/TT: Gluing Machine Offbearer: us Ebenezer Mika DO [facility] Final Result documented in this encounter Visit Diagnoses Not on filedocumented in this encounter Care Teams Band Aid Machine Operator Relationship Specialty Start Date End Date Rosemarie Kang MD [address] [place] [address] PCP - [facility] SENIOR PRODUCT DEVELOPMENT ENGINEER 02/26/24 documented as of this encounter
--- OUTSIDE RECORDS SUMMARY | 2025-04-25 09:21 | XMS_ITS | Encounter Summary ---
Author Organization [facility] Address [address] [facility] [place] [address] Care Team Providers Care Confectionery Laboratory Manager Name Role Phone RichjoseRosemarie MD Unavailable Encounter Details Date Type Department Care Team (Late st Contact Info) Description 10/19/2024 Clinisync Result Encounter [facility] External Department Unsolicited Ebenezer Brennan, DO [address] [facility] [address] Alecia [place] [place], [place] [id number] Social History Tobacco Use Types Packs/Day Years [...] Associated Diagnosis Comments US PELVIS W/ TRANSVAGINAL 10/19/2024 5:16 AM EST documented in this encounter Results * US PELVIS W/ TRANSVAGINAL (10/19/2024 5:16 AM EST) Anatomical Region Laterality Modality Other 10/19/2024 5:16 AM EST Narrative 10/19/2024 5:19 AM EST The [address] [address] Ultrasound Report Signed Patient: ALYSIA UMRPHY MR#: [id number] : 1985 Acct:[id number] Age/Sex: 38 / F ADM Date: 10/18/24 Loc: US Attending Dr: Ebenezer Brennan D.O. Ordering Physician: Ebenezer Brennan D.O. Date of Service: 10/18/24 Procedure(s): US pelvis w/ transvaginal Accession Number(s): [id number] cc: Ebenezer Brennan D.O.; Physician,Non-Staff M.DEdison [place] [id number] Patient Name: ALYSIA MURPHY MRN: [id number] date: 1985 Sex: F Assigned Patient Location: US Current Patient Location: Accession/Order Number: [id number] Exam Date: 10/18/2024 11:10 Report Date: 10/19/2024 05:16 At the request of: EBENEZER BRENNAN Procedure: US pelvis w/ transvaginal EXAMINATION: US pelvis w/ transvaginal HISTORY: Pelvic Pain , irregular menstrual cycle COMPARISON: Ultrasound pelvis 09/25/2023 TECHNIQUE: Transabdominal and/or transvaginal sonographic examination was performed as indicated by examination type. FINDINGS: UTERUS: Normal size and appearance. Uterus size: 9.1 x 3.9 x 5.2 cm ENDOMETRIUM: Normal homogeneous appearance. Endometrial thickness: 3 mm RIGHT OVARY: Contains a 1.3 cm dominant follicle. Normal size and appearance of the ovary. Duplex Doppler demonstrates normal waveform and flow; resistive index 0.7. Ovary size: 2.8 x 1.4 x 3.0 cm LEFT OVARY: Normal size and appearance. Duplex Doppler demonstrates normal waveform and flow; resistive index 0.5. Ovary size: 3.5 x 1.9 x 1.6 cm CUL-DE-SAC: Unremarkable. No significant free fluid. BLADDER: Unremarkable. OTHER: None. US/US pelvis w/ transvaginal IMPRESSION: 1. Normal pelvic ultrasound. No abnormal or suspicious findings. Electronically authenticated by: GUY GUZMAN Date: 10/19/2024 05:16 Dictated By: Guy Guzman M.D. Signed By: 10/19/2419 DD/ 5 TD/TT: Stripping Shovel Operator: Procedure Note Radiology, Radiologist, - 10/19/2024 [place] [address] Ultrasound Report Signed Patient: ALYSIA MRUPHY TMR#: [id number] : 1985Acct:[id number] Age/Sex: 38 / FADM Date: 10/18/24 Loc: US Attending Dr: Ebenezer Brennan D.O. Ordering Physician: Ebenezer Brennan D.O. Date of Service: 10/18/24 Procedure(s): US pelvis w/ transvaginal Accession Number(s): [id number] cc: Ebenezer Brennan D.O.; Physician,Non-Staff MDeja The [place] [id number] Patient Name: ALYSIA MURPHY MRN: [facility]:[id number] date: 1985 Sex: F Assigned Patient Location: Current Patient Location: Accession/Order Number: [id number] Exam Date: 10/18/2024 11:10 Report Date: 10/19/2024 05:16 At the request of: EBENEZER BRENNAN Procedure: US pelvis w/ transvaginal EXAMINATION: US pelvis w/ transvaginal HISTORY: Pelvic Pain , irregular menstrual cycle COMPARISON: Ultrasound pelvis 09/25/2023 TECHNIQUE: Transabdominal and/or transvaginal sonographic examination was performed as indicated by examination type. FINDINGS: UTERUS: Normal size and appearance. Uterus size: 9.1 x 3.9 x 5.2 cm ENDOMETRIUM: Normal homogeneous appearance. Endometrial thickness: 3 mm RIGHT OVARY: Contains a 1.3 cm dominant follicle. Normal size andappearance of the ovary. Duplex Doppler demonstrates normal waveform and flow; resistive index 0.7. Ovary size: 2.8 x 1.4 x 3.0 cm LEFT OVARY: Normal size and appearance. Duplex Doppler demonstrates normal waveform and flow; resistive index 0.5. Ovary size: 3.5 x 1.9 x 1.6 cm CUL-DE-SAC: Unremarkable. No significant free fluid. BLADDER: Unremarkable. OTHER: None. US/US pelvis w/ transvaginal IMPRESSION: 1. Normal pelvic ultrasound. No abnormal or suspicious findings. Electronically authenticated by: GUY GUZMAN Date: 10/19/2024 05:16 Dictated By: Guy Guzman M.D. Signed By:10/19/2419 DD/ 5 TD/TT: Stripping Shovel Operator: us Ebenezer Mika DO [facility] Final Result documented in this encounter Visit Diagnoses Not on filedocumented in this encounter Care Teams Confectionery Laboratory Manager Relationship Specialty Start Date End Date Richly, Rosemarie Liao MD [address] [place] [address] PCP - [facility] KNOT TIER 02/26/24 documented as of this encounter
--- OUTSIDE RECORDS SUMMARY | 2025-04-25 09:21 | XMS_ITS | Encounter Summary ---
Author Organization [facility] Address [address] [place] [address] Care Team Providers Care Rod Piler Name Role Phone Rosemarie Kang MD Unavailable [phone] Reason for Visit * Reason Comments Med Refill Encounter Details Date Type Department Care Team (Late st Contact Info) Description 11/12/2024 Refill [facility] OB [address] [place] [phone] Ebenezer Brennan DO [address] [facility] [address] Alecia Chao, [facility]11 Anovulation Social History Tobacco Use Types [...] anovulation documented in this encounter Care Teams Rod Piler Relationship Specialty Start Date End Date Rosemarie Kang MD [address] [place] [address] PCP - [facility] COLORING ROOM MAN 02/26/24 documented as of this encounter
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
[2025-04-26 04:07] LABS: Progesterone 4.3 ng/mL (.)
== END 2025-04-25 09:19 | disposition home or self-care (01) ==
LOC: LAB 09:19
PROVIDERS: Visit Provider Obstetrics & Gynecology
DX: N97.0 Female infertility associated with anovulation (principal)
CPT/HCPCS: 36415; 84144

== ENCOUNTER 2025-05-29 08:57 | Outpatient (OUT) | payer MEDICAID, SELFPAY ==
--- OUTSIDE RECORDS SUMMARY | 2025-05-29 09:00 | XMS_ITS | Encounter Summary ---
Author Organization [facility] Address [address] [place] [address] Care Team Providers Care Sexer Name Role Phone Rosemarie Kang MD Unavailable [phone] Reason for Visit * Reason Comments Med Refill Encounter Details Date Type Department Care Team (Late st Contact Info) Description 05/10/2025 Refill [facility] OB [address] [place] [phone] Ebenezer Brennan DO [address] [facility] [place] [address] Anovulation; PCOS (polycystic ovarian syndrome); Irregular menstrual cycle Social History Tobacco Use Types Packs/Day Years Used Date Smoking Tobacco: Never Assessed Comments No Sex and Gender Information Value Date Recorded Sex Assigned at Female 09/04/2023 9:07 AM EDT Legal Sex Female 11:47 PM EDT Gender Identity Female 09/04/2023 9:07 AM EDT Sexual Orientation Bisexual 09/04/2023 9: 07 AM EDT documented as of this encounter Plan of Treatment Not on file documented as of this encounter Visit Diagnoses Diagnosis Anovulation Female infertility associated with anovulation PCOS (polycystic ovarian syndrome) Polycystic ovaries Irregular menstrual cycle documented in this encounter Care Teams Sexer Relationship Specialty Start Date End Date Rosemarie Kang MD PCP - [facility] MANAGER DRUG 02/26/24 documented as of this encounter
--- OUTSIDE RECORDS SUMMARY | 2025-05-29 09:00 | XMS_ITS | Encounter Summary ---
Author Organization [facility] Address [address] [facility] [place] [address] Care Team Providers Care Bus Person Dishwasher Name Role Phone Rosemarie Kang MD Unavailable [phone] Reason for Visit * Reason Comments Med Refill Encounter Details Date Type Department Care Team (Late st Contact Info) Description 05/01/2025 Refill [facility] OB [address] [place] [phone] Ebenezer Brennan DO [address] [place] [address] Female infertility Social History Tobacco Use Types Packs/Day Years Used Date Smoking Tobacco: Never Assessed Comments No Sex and Gender Information Value Date Recorded Sex Assigned at Female 09/04/2023 9:07 AM EDT Legal Sex Female 11:47 PM EDT Gender Identity Female 09/04/2023 9:07 AM EDT Sexual Orientation Bisexual 09/04/2023 9: 07 AM EDT documented as of this encounter Miscellaneous Notes * Telephone Encounter - Sylvia Chaidez MA - 05/06/2025 9:14 AM EDT Pt must call on first day of cycle to request refill documented in this encounter Plan of Treatment Not on file documented as of this encounter Visit Diagnoses Diagnosis Female infertility Female infertility of unspecified origin documented in this encounter Care Teams Bus Person Dishwasher Relationship Specialty Start Date End Date Rosemarie Kang MD PCP - [facility] HIM SPECIALIST 02/26/24 documented as of this encounter
--- OUTSIDE RECORDS SUMMARY | 2025-05-29 09:00 | XMS_ITS | Clinical Summary ---
Author Organization [facility] Address [address] [place] [address] Care Team Providers Care Mailing Section Clerk Name Role Phone Rosemarie Kang MD Unavailable Allergies Active Allergy Reactions Criticality Noted Date Comments Cefaclor Rash Low 01/29/2019 Penciclovir Hives,Itching,Rash,S hortness of breath,Swelling,Wheezing High 09/07/2023 Penicillins Rash Low 01/29/2019 Medications 27-1 MG tabletIndicatio ns:Abnormal uterine bleeding (AUB) Take 27 mg by mouth 1 (one) time each day at the same time 30 tablet 11 08/05/2024 08/05/20 25 Active letrozole (Femara) 2.5 MG chemo tabletIndicatio ns:Anovulation, PCOS (polycystic ovarian syndrome),Irreg ular menstrual cycle Take 2 tablets (5 mg total) by mouth Daily for 5 days. 10 tablet 05/09/2025 05/14/20 25 Encounters Date Type Department Care Team Description 05/10/[address] [facility] [address] [place] [address] Ebenezer Brennan, Anovulation; PCOS (polycystic ovarian syndrome); Irregular menstrual cycle 05/09/[address] [facility] [place] [facility] [place] [address] Ebenezer Brennan, 05/01/[address] [facility] [address] [place] [address] Ebenezer Brennan, Female infertility 04/25/2025 Clinisync Result Encounter NOMS External Department Unsolicited Ebenezer Brennan, DO 04/08/[address] [facility] [address] [place] [address] Arlette Whelan LPN 04/07/[address] [facility] [address] [place] [address] Sylvia Chaidez MA 03/26/2025 Clinisync Result Encounter NOMS External Department Unsolicited Ebenezer Brennan, DO 03/07/[address] [facility] OB [address] [place] [address] Ebenezer Brennan, DO Anovulation 03/06/[address] [facility] [address] [place] [address] Coleen Sykes MA Anovulation from Last 3 Months Family History Medical History Relation Name Comments Asthma Daughter Diabetes Mother Heart disease Mother Relation Name Status Comments Daughter Mother Social History Tobacco Use Types Packs/Day Years Used Date Smoking Tobacco: Never Assessed Comments No Sex and Gender Information Value Date Recorded Sex Assigned at Female 09/04/2023 9:07 AM EDT Legal Sex Female 11:47 PM EDT Gender Identity Female 09/04/2023 9:07 AM EDT Sexual Orientation Bisexual 09/04/2023 9: 07 AM EDT Last Filed Vital Signs Vital Sign Reading Time Taken Comments Blood Pressure 118/68 02/18/2025 10:39 AM EDT Pulse - - Temperature - - Respiratory Rate - - Oxygen Saturation - - Inhaled Oxygen Concentration - - Weight 68.9 kg (152 lb) 02/18/2025 10:39 AM EDT Height 162.6 cm (5' 4 ) 09/11/2023 11:15 AM EDT Body Mass Index 26.09 09/11/2023 11:15 AM EDT Plan of Treatment Health Maintenance Due Date Last Done Comments HPV/Cotest 2016 Influenza Vaccine (#1) 2025 Cervical Cancer Screening 09/16/2027 Pap Smear 09/16/2027 09/16/2024 Procedures Procedure Name Priority Date/Time Associated Diagnosis Comments ALL PROGESTERONE Routine 04/25/2025 9:35 AM EDT ALL PROGESTERONE Routine 03/26/2025 9:05 AM EDT PAP SMEAR Routine 09/16/2024 12:00 AM EDT from Last 3 Months or Most Recently Relevant to Health Maintenance Results * ALL PROGESTERONE (04/25/2025 9:35 AM EDT) Only the most recent of2 resultswithin the time period is included. PROGESTERONE 4.3 . ng/mL [facility] Comment: Follicular phase 0.1 - 0.9 Luteal phase 1.8 - 23.9 Ovulation phase 0.1 - 12.0 First trimester 11.0 - 44.3 Second trimester 25.4 - 83.3 Third trimester 58.7 - 214.0 Postmenopausal 0.0 - 0.1 Performed at: [facility] [address] [id number] Communications Associate: Alireza Banuelos PhD, Phone: [phone] 04/25/2025 9:35 AM EDT 04/25/2025 9:36 AM EDT Narrative [facility] - 04/26/2025 4:07 AM EDT Ebenezer Mika DO [facility] Final Result [facility] * Pap Smear (09/16/2024 12:00 AM EDT) Swab Cervical swab / Unknown Mika Nurse [facility] Ob LAB CYTOLOGY ORDERABLES Final Result EXTERNAL LAB from Last 3 Months or Most Recently Relevant to Health [place] [address] [employer] MEDICAID [place] Care Teams Mailing Section Clerk Relationship Specialty Start Date End Date Pearl, Rosemarie Liao MD PCP - [facility] FRONT DESK ADMIN 02/26/24
--- OUTSIDE RECORDS SUMMARY | 2025-05-29 09:01 | XMS_ITS | Encounter Summary ---
Author Organization [facility] Address [address] [place] [address] Care Team Providers Care Law Examiner Name Role Phone RichjoseRosemarie MD Unavailable Encounter Details Date Type Department Care Team (Late st Contact Info) Description 09/26/2023 Clinisync Result Encounter NOM[facility] External Department Unsolicited Ebenezer Brennan, DO [address] [place] [address] Social History Tobacco Use Types Packs/Day Years [...] EDT Narrative 09/26/2023 12:35 AM EDT The [address] [address] Ultrasound Report Signed Patient: Alysia Murphy MR#: [id number] : 1985 Acct:[id number] Age/Sex: 37 / F ADM Date: 09/25/23 Loc: US Attending Dr: Ebenezer Brennan D.O. Ordering Physician: Ebenezer Brennan D.O. Date of Service: 09/25/23 Procedure(s): US pelvis w/ transvaginal Accession Number(s): [id number] cc: Ebenezer Brennan D.O.; Physician,Non-Staff Clotilde The [address] [address] Patient Name: ALYSIA MURPHY MRN: [id number] date: 1985 Sex: F Assigned Patient Location: US Current Patient Location: Accession/Order Number: [id number] Exam Date: 09/25/2023 11:08 Report Date: 09/26/2023 [...] Signed By: 09/26/23 0149 DD/ 0035 TD/TT: Practice Architect: Procedure Note Radiology, Radiologist, - 09/26/2023 [place] [address] Ultrasound Report Signed Patient: Alysia Murphy TMR#: [id number] : 1985Acct:[id number] Age/Sex: 37 / FADM Date: 09/25/23 Loc: US Attending Dr: Ebenezer Brennan D.O. Ordering Physician: Ebenezer Brennan D.O. Date of Service: 09/25/23 Procedure(s): US pelvis w/ transvaginal Accession Number(s): [id number] cc: Ebenezer Brennan D.O.; Physician,Non-Staff Clotilde The [place] [id number] Patient Name: ALYSIA MURPHY MRN: [facility]:[id number] date: 1985 Sex: F Assigned Patient Location: US Current Patient Location: Accession/Order Number: [id number] Exam Date: 09/25/2023 11:08 Report Date: 09/26/2023 [...] M.D. Signed By:09/26/23 0149 DD/ 0035 TD/TT: Practice Architect: us Ebenezer Mika DO [facility] Final Result documented in this encounter Visit Diagnoses Not on filedocumented in this encounter Care Teams Law Examiner Relationship Specialty Start Date End Date Rosemarie Kang MD PCP - [facility] HONE OPERATOR 02/26/24 documented as of this encounter
--- OUTSIDE RECORDS SUMMARY | 2025-05-29 09:01 | XMS_ITS | Encounter Summary ---
Author Organization [facility] Address [address] [place] [address] Care Team Providers Care Inspector Rough Castings Name Role Phone Rosemarie Kang MD Unavailable Reason for Visit * Reason Comments Med Refill Encounter Details Date Type Department Care Team (Late st Contact Info) Description 02/05/2025 Refill [facility] [address] [place] [address] Ebenezer Brennan DO [address] [facility] [place] [address] Anovulation Social History Tobacco Use Types Packs/Day [...] anovulation documented in this encounter Care Teams Inspector Rough Castings Relationship Specialty Start Date End Date Rosemarie Kang MD PCP - [facility] [employer] 02/26/24 documented as of this encounter
--- OUTSIDE RECORDS SUMMARY | 2025-05-29 09:01 | XMS_ITS | Clinical Summary ---
Author Organization [facility] Address [id number] [address] [place] [address] Care Team Providers Care School Of Nursing Director Name Role Phone No Pcp, No Pcp [...] EDT - 03/06/2025 7:13 PM EDT Emergency [facility] - Emergency [address] [place] [id number] Concussion without loss of consciousness, initial encounter [...] MD on 03/06/2025 6:45 PM Skylar Sargent COMPLIANCE ENGINEER-FREELANCE COURT STENOGRAPHER IMG CT ORDERABLES Fin al Result * [...] MD on 03/06/2025 6:45 PM Skylar Sargent COMPLIANCE ENGINEER-FREELANCE COURT STENOGRAPHER IMG CT ORDERABLES Fin al Result from Last 3 Months Insurance [employer]ICA[employer] Care Teams School Of Nursing Director Relationship Specialty Start Date End Date No Pcp, No Pcp CYNTHIA Mandel [id number] PCP - General 04/22/13
--- OUTSIDE RECORDS SUMMARY | 2025-05-29 09:01 | XMS_ITS | Encounter Summary ---
Author Organization [facility] Address [address] [place] [address] Care Team Providers Care Director Mission Name Role Phone Rosemarie Kang MD Unavailable Reason for Visit * Reason Comments Med Refill Encounter Details Date Type Department Care Team (Late st Contact Info) Description 11/12/2024 Refill [facility] [address] [address] [place] [address] Ebenezer Brennan DO [address] [facility] [place] [address] Anovulation Social History Tobacco Use Types Packs/Day [...] anovulation documented in this encounter Care Teams Director Mission Relationship Specialty Start Date End Date Rosemarie Kang MD PCP - [facility] SPORTS EQUIPMENT SUPERVISOR 02/26/24 documented as of this encounter
--- OUTSIDE RECORDS SUMMARY | 2025-05-29 09:01 | XMS_ITS | Encounter Summary ---
Author Organization [facility] Address [address] [facility] [address] Care Team Providers Care Transportation Attendant Name Role Phone Rosemarie Kang MD Unavailable [phone] Encounter Details Date Type Department Care Team (Late st Contact Info) Description 09/24/2024 Orders Only [facility] [address] [place] [address] Mckenzie Perez LPN [address] [place] [address] Social History Tobacco Use Types Packs/Day Years [...] EDT) Swab Cervical swab / Unknown us Mika Nurse [facility] Ob LAB CYTOLOGY ORDERABLES Final Result EXTERNAL LAB documented in this encounter Visit Diagnoses Not on filedocumented in this encounter Care Teams Transportation Attendant Relationship Specialty Start Date End Date Rosemarie Kang MD PCP - [facility] [place] NAVAL MARINE ENGINEER 02/26/24 documented as of this encounter
--- OUTSIDE RECORDS SUMMARY | 2025-05-29 09:01 | XMS_ITS | Encounter Summary ---
Author Organization [facility] Address [address] [place] [address] Care Team Providers Care Yarn Salvager Name Role Phone RichjoseRosemarie MD Unavailable Encounter Details Date Type Department Care Team (Late st Contact Info) Description 10/19/2024 Clinisync Result Encounter [facility] External Department Unsolicited Ebenezer Brennan, DO [address] [facility] [address] [facility] [address] [facility] [address] [place], [place] [id number] Social History Tobacco Use Types Packs/Day Years [...] EST Narrative 10/19/2024 5:19 AM EST The [address] [address] Ultrasound Report Signed Patient: ALYSIA MURPHY MR#: [id number] : 1985 Acct:[id number] Age/Sex: 38 / F ADM Date: 10/18/24 Loc: US Attending Dr: Ebenezer Brennan D.O. Ordering Physician: Ebenezer Brennan D.O. Date of Service: 10/18/24 Procedure(s): US pelvis w/ transvaginal Accession Number(s): [id number] cc: Ebenezer Brennan D.O.; Physician,Non-Staff M.DEdison [place] [id number] Patient Name: ALYSIA MURPHY MRN: [id number] date: 1985 Sex: F Assigned Patient Location: US Current Patient Location: Accession/Order Number: [id number] Exam Date: 10/18/2024 11:10 Report Date: 10/19/2024 [...] M.D. Signed By: 10/19/2419 DD/ 5 TD/TT: Kennel Manager Dog Track: Procedure Note Radiology, Radiologist, - 10/19/2024 [place] [address] Ultrasound Report Signed Patient: ALYSIA MURPHY TMR#: [id number] : 1985Acct:[id number] Age/Sex: 38 / FADM Date: 10/18/24 Loc: US Attending Dr: Ebenezer Brennan D.O. Ordering Physician: Ebenezer Brennan D.O. Date of Service: 10/18/24 Procedure(s): US pelvis w/ transvaginal Accession Number(s): [id number] cc: Ebenezer Brennan D.O.; Physician,Non-Staff MDeja The [place] [id number] Patient Name: ALYSIA MURPHY MRN: [facility]:[id number] date: 1985 Sex: F Assigned Patient Location: Current Patient Location: Accession/Order Number: [id number] Exam Date: 10/18/2024 11:10 Report Date: 10/19/2024 [...] 05:16 Dictated By: Guy Guzman M.D. Signed By:10/19/24 0519 DD/ TD/TT: Kennel Manager Dog Track: us Ebenezer Mika DO [facility] Final Result documented in this encounter Visit Diagnoses Not on filedocumented in this encounter Care Teams Yarn Salvager Relationship Specialty Start Date End Date Wonderly, Rosemarie Liao MD PCP - [facility] TALCER 02/26/24 documented as of this encounter
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
== END 2025-05-29 08:58 | disposition home or self-care (01) ==
PROVIDERS: Visit Provider Obstetrics & Gynecology
DX: N97.0 Female infertility associated with anovulation (principal)
CPT/HCPCS: 36415; 84144

== ENCOUNTER 2025-06-29 10:41 | Outpatient (RCR) | payer MEDICAID, SELFPAY | END 2025-07-26 23:59 | disposition home or self-care (01) | LOC: LAB 10:41 | PROVIDERS: Visit Provider Obstetrics & Gynecology | DX: N97.0 Female infertility associated with anovulation (principal) | CPT/HCPCS: 36415; 84144 ==

== ENCOUNTER 2025-07-29 08:40 | Outpatient (OUT) | payer MEDICAID, SELFPAY ==
--- OUTSIDE RECORDS SUMMARY | 2025-07-29 08:44 | XMS_ITS | Clinical Summary ---
Author Organization Med-Teks tem Address [id number] [address] [place] [address] Care Team Providers Care Shredder Tender Peat Name Role Phone No Pcp, No Pcp [...] Active Active Problems No known active problems Social History Tobacco Use Types Packs/Day Years [...] 09/16/2027 09/16/2024 Medical Devices Not on file Insurance [facility] MEDICAID AUTO INSURANCE Care Teams Shredder Tender Peat Relationship Specialty Start Date End Date No Pcp, [place] [address] PCP - General 04/22/13
--- OUTSIDE RECORDS SUMMARY | 2025-07-29 08:44 | XMS_ITS | Encounter Summary ---
Author Organization [facility] Address [address] [facility] [place] [address] Care Team Providers Care Supervisor Process Testing Name Role Phone Pearl Rosemarie Liao MD Unavailable [phone] Reason for Visit * Reason Comments Med Refill Encounter Details Date Type Department Care Team (Late st Contact Info) Description 05/01/2025 Refill [facility] [address] [place] [phone] Ebenezer Brennan DO [address] [facility] [address] [place]cia [place]ao, [facility]11 Female infertility Social History Tobacco Use Types [...] documented in this encounter Plan of Treatment Upcoming Encounters Date Type Department Care Team (Late st Contact Info) Description 09/18/2025 10:00 AM EDT Procedure Visit [facility] Zhanna [facility] [address] [place] [phone] Luna Hill PA [address] [place] [address] [place] [address] documented as of this encounter Visit Diagnoses Diagnosis Female infertility Female infertility of unspecified origin documented in this encounter Care Teams Supervisor Process Testing Relationship Specialty Start Date End Date Wonderly, Rosemarie Liao MD PCP - [facility] ENGLISH PROFESSOR 02/26/24 documented as of this encounter
--- OUTSIDE RECORDS SUMMARY | 2025-07-29 08:44 | XMS_ITS | Encounter Summary ---
Author Organization [facility] Address [address] [facility] [place] [address] Care Team Providers Care Medical Record Clerk Name Role Phone PearlRosemarie MD Unavailable Encounter Details Date Type Department Care Team (Late st Contact Info) Description 09/24/2024 Orders Only JOHN CO[facility]URN [address] [place] [address] [place] [address] Mckenzie Perez LPN [address] [place] [address] Social History Tobacco Use Types Packs/Day Years Used Date Smoking Tobacco: Never Assessed Comments Unknown Sex and Gender Information Value Date Recorded Sex Assigned at Female 09/04/2023 9:07 AM EDT Legal Sex Female 11:47 PM EDT Gender Identity Female 09/04/2023 9:07 AM EDT Sexual Orientation Bisexual 09/04/2023 9: 07 AM EDT documented as of this encounter Plan of Treatment Upcoming Encounters Date Type Department Care Team (Late st Contact Info) Description 09/18/2025 10:00 AM EDT Procedure Visit [facility] Zhanna [facility] [address] [facility] [place] [address] Luna Hill PA [address] [facility] [address] [place], [place] [id number] documented as of this encounter Procedures Procedure [...] on filedocumented in this encounter Care Teams Medical Record Clerk Relationship Specialty Start Date End Date Wonderly, Rosemarie Liao MD PCP - [facility] PHOTOCOPYING MACHINE OPERATOR 02/26/24 documented as of this encounter
--- OUTSIDE RECORDS SUMMARY | 2025-07-29 08:44 | XMS_ITS | Encounter Summary ---
Author Organization [facility] Address [address] [facility] [place] [address] Care Team Providers Care Vc++ Developer Name Role Phone Rosemarie Kang MD Unavailable [phone] Reason for Visit * Reason Comments Med Refill Encounter Details Date Type Department Care Team (Late Contact Info) Description 11/12/2024 Refill [facility] [address] [facility] [place] [phone] Ebenezer Brennan DO [address] [facility] [address] Alecia Chao, [facility]11 Anovulation Social History Tobacco Use Types Packs/Day [...] Description 09/18/2025 10:00 AM EDT Procedure Visit [facility] [address] [facility] [place] [address] Luna Hill PA [address] [facility] [address] [place], [place] [id number] documented as of this encounter Visit Diagnoses Diagnosis Anovulation Female infertility associated with anovulation documented in this encounter Care Teams Vc++ Developer Relationship Specialty Start Date End Date Rosemarie Kang MD PCP - [facility] TIRE REGROOVING MACHINE OPERATOR 02/26/24 documented as of this encounter
--- OUTSIDE RECORDS SUMMARY | 2025-07-29 08:44 | XMS_ITS | Encounter Summary ---
Author Organization [facility] Address [address] [facility] [place] [address] Care Team Providers Care Alliances Consultant Name Role Phone Rosemarie Kang MD Unavailable [phone] Reason for Visit * Reason Comments Med Refill Encounter Details Date Type Department Care Team (Late Contact Info) Description 02/05/2025 Refill [facility] [address] [facility] [phone] Ebenezer Brennan DO [address] [facility] [address] Alecia Chao, [facility]11 Anovulation Social History Tobacco Use Types Packs/Day [...] AM EDT Procedure Visit [facility] [address] [facility] [place] [phone] Luna Hill PA [address] [facility] [address] [place], [place] [id number] documented as of this encounter Visit Diagnoses Diagnosis Anovulation Female infertility associated with anovulation documented in this encounter Care Teams Alliances Consultant Relationship Specialty Start Date End Date Rosemarie Kang MD PCP - [facility] GOLF CADDY 02/26/24 documented as of this encounter
--- OUTSIDE RECORDS SUMMARY | 2025-07-29 08:44 | XMS_ITS | Clinical Summary ---
Author Organization [facility] Address [address] [facility] [place] [address] Care Team Providers Care Instructional Media Services Technician Name Role Phone Rosemarie Kang MD Unavailable Allergies Active Allergy Reactions Criticality Noted Date Comments Cefaclor Rash Low 01/29/2019 Penciclovir Hives,Itching,Rash,S hortness of breath,Swelling,Wheezing High 09/07/2023 Penicillins Rash Low 01/29/2019 Medications 27-1 MG tabletIndicatio ns:Abnormal uterine bleeding (AUB) Take 27 mg by mouth 1 (one) time each day at the same time 30 tablet 11 5 07/08/20 26 Active 27-1 MG tabletIndicatio ns:Abnormal uterine bleeding (AUB) Take 27 mg by mouth 1 (one) time each day at the same time 30 tablet 11 4 07/08/20 25 Discontinue d(Reorder) letrozole (Femara) 2.5 MG chemo tabletIndicatio ns:Anovulation Take 2 tablets (5 mg total) by mouth Daily for 5 days. 10 tablet 5 07/08/20 25 Discontinue d(Reorder) letrozole (Femara) 2.5 MG chemo tabletIndicatio ns:Anovulation Take 2 tablets (5 mg total) by mouth Daily for 5 days. 10 tablet 5 07/14/20 25 Encounters Date Type Department Care Team Description 07/08/2025 Refill [facility] [address] [place] [address] [place] [phone] Ebenezer Brennan, Anovulation 07/04/2025 Refill [facility] [address] [facility] [place] [address] Ebenezer Brennan DO Anovulation; Abnormal uterine bleeding (AUB) 06/29/2025 Clinisync Result Encounter [facility] External Department Unsolicited Ebenezer Brennan, 06/09/2025 Refill [facility] [place] [facility] [address] [facility] [place] [address] WilRadha andino, COFFEE MACHINE TECHNICIAN Anovulation 06/09/2025 Telephone [facility] [address] [facility] [place] [address] Wilthu Radha, COFFEE MACHINE TECHNICIAN 05/29/2025 Clinisync Result Encounter [facility] External Department Unsolicited Ebenezer Brennan, 05/10/2025 Refill [facility] [address] [facility] [place] [address] Ebenezer Brennan, Anovulation; PCOS (polycystic ovarian syndrome); Irregular menstrual cycle 05/09/2025 Telephone [facility] [address] [facility] [place] [address] Ebenezer Brennan, 05/01/2025 Refill [facility] [address] [facility] [place] [address] Ebenezer Brennan, Female infertility from Last 3 Months Family History Medical [...] 09/11/2023 11:15 AM EDT Plan of Treatment Upcoming Encounters Date Type Department Care Team (Late st Contact Info) Description 09/18/2025 10:00 AM EDT Procedure Visit [facility] [address] [facility] [place] [address] Luna Hill PA [address] [facility] [place] [address] Health Maintenance Due Date Last Done Comments HPV/Cotest 2016 Influenza Vaccine (#1) 2025 Cervical Cancer Screening 09/16/2027 Pap Smear 09/16/2027 09/16/2024 Procedures Procedure Name Priority Date/Time Associated Diagnosis Comments ALL PROGESTERONE Routine 06/29/2025 10:5 2 AM EDT ALL PROGESTERONE Routine 05/29/2025 9:07 AM EDT PAP SMEAR Routine 09/16/2024 12:00 AM EDT from Last 3 Months or Most Recently Relevant to Health Maintenance Results * ALL PROGESTERONE (06/29/2025 10:52 AM EDT) Only the most recent of2 resultswithin the time period is included. PROGESTERONE 27.1 . ng/mL [facility] Comment: Follicular phase 0.1 - 0.9 Luteal phase 1.8 - 23.9 Ovulation phase 0.1 - 12.0 First trimester 11.0 - 44.3 Second trimester 25.4 - 83.3 Third trimester 58.7 - 214.0 Postmenopausal 0.0 - 0.1 Performed at: - [facility] [id number] Plastic Maker: Alireza Banuelos PhD, Phone: [phone] 06/29/2025 10:5 2 AM EDT 06/29/2025 10:52 AM EDT Narrative [facility] - 06/30/2025 7:07 AM EDT us Ebenezer Dodsono DO [facility] Final Result [facility] * Pap Smear (09/16/2024 12:00 AM EDT) Swab Cervical swab / Unknown Mika Nurse [facility] CYTOLOGY ORDERABLES Final Result EXTERNAL LAB from Last 3 Months or Most Recently Relevant to Health Maintenance [place] [address] [place] [employer] MEDICAID [place] Care Teams Instructional Media Services Technician Relationship Specialty Start Date End Date Rosemarie Kang MD PCP - [facility] CUSTOMS COMPLIANCE MANAGER 02/26/24
--- OUTSIDE RECORDS SUMMARY | 2025-07-29 08:44 | XMS_ITS | Encounter Summary ---
Author Organization [facility] Address [address] [facility] [place] [address] Care Team Providers Care Beaver Trapper Name Role Phone Pearl Rosemarie Liao MD Unavailable Encounter Details Date Type Department Care Team (Late st Contact Info) Description 09/26/2023 Clinisync Result Encounter [facility] External Department Unsolicited Keiko Brennan DO [address] [facility] [address] [place], [place] [phone] Social History Tobacco Use Types Packs/Day Years [...] 10:00 AM EDT Procedure Visit [facility]anna [facility]BG[facility] [address] [facility] [phone] Luna Hill PA [address] [facility] [place] [address] documented as of this encounter Procedures Procedure Name Priority Date/Time Associated Diagnosis Comments US PELVIS W/ TRANSVAGINAL 09/26/2023 12:35 AM EDT documented in this encounter Results * US PELVIS W/ TRANSVAGINAL (09/26/2023 12:35 AM EDT) Anatomical Region Laterality Modality Other 09/26/2023 12:3 5 AM EDT Narrative 09/26/2023 12:35 [place] [address] Ultrasound Report Signed Patient: Alysia Murphy MR#: [id number] : 1985 Acct:[id number] Age/Sex: 37 / F ADM Date: 09/25/23 Loc: US Attending Dr: Keiko Brennan D.O. Ordering Physician: Keiko Brennan D.O. Date of Service: 09/25/23 Procedure(s): US pelvis w/ transvaginal Accession Number(s): [id number] cc: Keiko Brennan D.O.; Physician,Non-Staff M.DEdison [place] [id number] Patient Name: ALYSIA MURPHY MRN: [id number] date: 1985 Sex: F Assigned Patient Location: Current Patient Location: Accession/Order Number: [id number] Exam Date: 09/25/2023 11:08 Report Date: 09/26/2023 00:35 At the request of: KEIKO BRENNAN Procedure: US pelvis w/ transvaginal EXAMINATION: [...] Signed By: 09/26/23 0149 DD/ 0035 TD/TT: Gang Bore Operator: Procedure Note Radiology, Radiologist, MD - 09/26/2023 [place] [address] Ultrasound Report Signed Patient: Alysia Murphy TMR#: [id number] : 1985Acct:[id number] Age/Sex: 37 / FADM Date: 09/25/23 Loc: US Attending Dr: Keiko Brennan D.O. Ordering Physician: Keiko Brennan D.O. Date of Service: 09/25/23 Procedure(s): US pelvis w/ transvaginal Accession Number(s): [id number] cc: Keiko Brennan D.O.; Physician,Non-Staff Clotilde The [place] [id number] Patient Name: ALYSIA MURPHY MRN: [id number] date: 1985 Sex: F Assigned Patient Location: US Current Patient Location: Accession/Order Number: [id number] Exam Date: 09/25/2023 11:08 Report Date: 09/26/2023 00:35 At the request of: KEIKO BRENNAN Procedure: US pelvis w/ transvaginal EXAMINATION: [...] M.D. Signed By:09/26/23 0149 DD/ 0035 TD/TT: Gang Bore Operator: us Keiko Mika DO [facility] Final Result documented in this encounter Visit Diagnoses Not on filedocumented in this encounter Care Teams Beaver Trapper Relationship Specialty Start Date End Date Richly, Rosemarie Liao MD PCP - JOHN APONTE 02/26/24 documented as of this encounter
--- OUTSIDE RECORDS SUMMARY | 2025-07-29 08:44 | XMS_ITS | Encounter Summary ---
Author Organization [facility] Address [address] [facility] [place] [address] Care Team Providers Care Assembling Motor Builder Name Role Phone Pearl Rosemarie Liao MD Unavailable Encounter Details Date Type Department Care Team (Late st Contact Info) Description 10/19/2024 Clinisync Result Encounter [facility] External Department Unsolicited Ebenezer Brennan DO [address] [facility] [place] [address] Social History Tobacco Use Types Packs/Day Years [...] EDT Procedure Visit [facility] Zhanna [facility] [address] [place] [address] Luna Hill PA [address] [facility] [place] [address] documented as of this encounter Procedures Procedure Name Priority Date/Time Associated Diagnosis Comments US PELVIS W/ TRANSVAGINAL 10/19/2024 5:16 AM EST documented in this encounter Results * US PELVIS W/ TRANSVAGINAL (10/19/2024 5:16 AM EST) Anatomical Region Laterality Modality Other 10/19/2024 5:16 AM EST Narrative 10/19/2024 5:19 [place] [address] Ultrasound Report Signed Patient: ALYSIA MURPHY MR#: [id number] : 1985 Acct:[id number] Age/Sex: 38 / F ADM Date: 10/18/24 Loc: US Attending Dr: Ebenezer Brennan D.O. Ordering Physician: Ebenezer Brennan D.O. Date of Service: 10/18/24 Procedure(s): US pelvis w/ transvaginal Accession Number(s): [id number] cc: Ebenezer Brennan D.O.; Physician,Non-Staff Clotilde [address] [address] Patient Name: ALYSIA MURPHY MRN: [facility]:[id number] date: 1985 Sex: F Assigned Patient Location: Current Patient Location: Accession/Order Number: [id number] Exam Date: 10/18/2024 11:10 Report Date: 10/19/2024 [...] Dictated By: Guy Guzman M.D. Signed By: 10/19/24518 DD/ 5 TD/TT: Gusset Edger: Procedure Note Radiology, Radiologist, MD - 10/19/2024 [place] [address] Ultrasound Report Signed Patient: ALYSIA MURPHY TMR#: [id number] : 1985Acct:[id number] Age/Sex: 38 / FADM Date: 10/18/24 Loc: US Attending Dr: Ebenezer Brennan D.O. Ordering Physician: Ebenezer Brennan D.O. Date of Service: 10/18/24 Procedure(s): US pelvis w/ transvaginal Accession Number(s): [id number] cc: Ebenezer Brennan D.O.; Physician,Non-Staff Clotilde The [place] [id number] Patient Name: ALYSIA MURPHY MRN: [id number] date: 1985 Sex: F Assigned Patient Location: US Current Patient Location: Accession/Order Number: [id number] Exam Date: 10/18/2024 11:10 Report Date: 10/19/2024 [...] By: Guy Guzman M.D. Signed By:10/19/2419 DD/ 05 TD/TT: Gusset Edger: us Ebenezer Mika DO [facility] Final Result documented in this encounter Visit Diagnoses Not on filedocumented in this encounter Care Teams Assembling Motor Builder Relationship Specialty Start Date End Date Rosemarie Kang MD PCP - [facility] MARKETING SUPPORT COORDINATOR 02/26/24 documented as of this encounter
--- OUTSIDE RECORDS SUMMARY | 2025-07-29 08:51 | XMS_ITS | CCD ---
Author Organization [facility] Care Team Providers Care Brim Shaper Name Role Phone DR KEIKO BRENNAN Admitting Unavailable DR KEIKO BRENNAN Attending Unavailable DR KEIKO BRENNAN Consulting Unavailable Rosemarie Kang MD Unavailable KEIKO BRENNAN Attending Unavailable KEIKO BRENNAN Attending Unavailable KEIKO BRENNAN Attending Unavailable NO PCP, NO PCP Primary Care Unavailable Rosemarie Kang MD Unavailable [phone] Allergies Allergy Classification Reported Allergen(s) Allergy Type Date of Onset Reaction(s) Facility (1 source) Acetaminophen / HYDROcodone Drug Allergy 7 [facility] Repository (1 source) Cefaclor Drug Allergy 7 [facility] Repository (2 sources) Penicillins; Translations: [PENICILLINS] Drug allergy (disorder) 7 [facility] Repository (16 sources) Cefaclor; Translations: [CEFACLOR] Drug Allergy 9 Rash [facility] (15 sources) penciclovir Drug Allergy 3 Hives, Itching, Rash, Shortness of breath, Swelling, Wheezing [facility] Work Phone: (15 sources) Penicillins Propensity to adverse reactions 9 Rash [facility] Medications Current Medications Medication Drug Class(es) Dates Sig (Normalized) Sig (Original) 27-1 MG tablet (15 sources) Start: 08-05-2024 End: 08-05-2025 take 1 [...] Reference Range Facility ALL PROGESTERONEon 5 PROGESTERONE 27.1 ng/mL . [facility] are Comment on above: Follicular phase 0.1 - 0.9 Luteal phase 1.8 - 23.9 Ovulation phase 0.1 - 12.0 First trimester 11.0 - 44.3 Second trimester 25.4 - 83.3 Third trimester 58.7 - 214.0 Postmenopausal 0.0 - 0.1 Performed at: [facility] [id number] Performance Architect: Alireza Banuelos PhD, Phone: [phone] [facility] ALL PROGESTERONEon 5 PROGESTERONE 33.3 ng/mL . [facility] are Comment on above: Follicular phase 0.1 - 0.9 Luteal phase 1.8 - 23.9 Ovulation phase 0.1 - 12.0 First trimester 11.0 - 44.3 Second trimester 25.4 - 83.3 Third trimester 58.7 - 214.0 Postmenopausal 0.0 - 0.1 Performed at: [facility] [place] [id number] Performance Architect: Alireza Banuelos PhD, Phone: [phone] [employer] ALL PROGESTERONEon 5 PROGESTERONE 4.3 ng/mL . [facility] are Comment on above: Follicular phase 0.1 - 0.9 Luteal phase 1.8 - 23.9 Ovulation phase 0.1 - 12.0 First trimester 11.0 - 44.3 Second trimester 25.4 - 83.3 Third trimester 58.7 - 214.0 Postmenopausal 0.0 - 0.1 Performed at: [facility] [employer] [id number] Performance Architect: Alireza Banuelos PhD, Phone: [phone] [employer] ALL PROGESTERONEon 5 PROGESTERONE 20.6 ng/mL . [facility] are Comment on above: Follicular phase 0.1 - 0.9 Luteal phase 1.8 - 23.9 Ovulation phase 0.1 - 12.0 First trimester 11.0 - 44.3 Second trimester 25.4 - 83.3 Third trimester 58.7 - 214.0 Postmenopausal 0.0 - 0.1 Performed at: [facility] [employer] [id number] Performance Architect: Alireza Banuelos PhD, Phone: [phone] [employer] CT BRAIN WO CONTon 5 CT BRAIN WO CONT CT BRAIN WO [...] Gonzalez MD on 03/06/2025 6:[address] [facility] CT CERVICAL SPINE WO CONTon 03-06-2025 CT [...] Gonzalez MD on 03/06/2025 6:[address] [facility] ALL PROGESTERONEon PROGESTERONE 20.5 ng/mL . [facility] are Comment on above: Follicular phase 0.1 - 0.9 Luteal phase 1.8 - 23.9 Ovulation phase 0.1 - 12.0 First trimester 11.0 - 44.3 Second trimester 25.4 - 83.3 Third trimester 58.7 - 214.0 Postmenopausal 0.0 - 0.1 Performed at: [facility] [address] [id number] Performance Architect: Alireza Banuelos PhD, Phone: [phone] [facility] ( test) Ql (U)o n 02-18-2025 Interpretation and review of laboratory results Normal [facility] Preg Test, Ur Negative Negative [facility] Urinalysis macro (dipstick) panel (U)on 02-18-2025 Bilirubin, UA Negative Negative - 4(70) +++ mg/dL [facility] Blood, UA Positive Negative - 50 Jack/mcL [facility] Comment on above: trace Clarity, UA Clear [facility] re Color, UA Yellow [facility] e Glucose, UA Negative Negative - 1999(110) ++++ mg/dL [facility] Interpretation and review of laboratory results Abnormal [facility] Ketones, UA Negative Negative - 160(16) ++++ mg/dL [facility] Leukocytes, UA Negative Negative - 500+++ Osiris/mcL [facility] Nitrite, UA Negative Negative - Positive [facility] pH, UA 8.5 5 - 9 [facility] Protein, UA Negative Negative - 1999(20) ++++ mg/dL [facility] Spec Grav, UA 1.015 1 - 1.03 [facility] Urobilinogen, UA 0.2 0.2 - 12 mg/dL [facility] e ALL PROGESTERONEon PROGESTERONE 19.9 ng/mL . [facility] are Comment on above: Follicular phase 0.1 - 0.9 Luteal phase 1.8 - 23.9 Ovulation phase 0.1 - 12.0 First trimester 11.0 - 44.3 Second trimester 25.4 - 83.3 Third trimester 58.7 - 214.0 Postmenopausal 0.0 - 0.1 Performed at: [facility] [address] [id number] Performance Architect: Alireza Banuelos PhD, Phone: [phone] [facility] ALL CBC WITH AUTO DIFFon BASOPHILS ABSOLUTE AUTO 0.1 [facility] Basophils/100 WBC (Bld) 0.8 % 0.2 - 2.0 % [facility] Eosinophils/100 WBC (Bld) 6.7 % 0.9 - 7.0 % [facility] Erythrocyte distribution width (RBC) [Ratio] 11.9 % 11.0 - 15.0 % [facility] Hematocrit (Bld) [Volume fraction] 37.6 % 36.0 - 48.0 % [facility] e Hemoglobin (Bld) [Mass/Vol] 12.6 g/dL 12.0 - 16.0 g/dL [facility] IMMATURE GRANULOCYTES ABS AUTO 0.02 [facility] Immature granulocytes/100 WBC (Bld) 0.3 % 0.0 - 0.5 % [facility] Interpretation and review of laboratory results Abnormal [facility] LYMPHOCYTES ABSOLUTE AUTO 2.5 [facility] Lymphocytes/100 WBC (Bld) 40.8 % 20.5 - 60.0 % [facility] MCH (RBC) [Entitic mass] 30.9 pg 26.7 - 34.0 pg [facility] MCHC (RBC) [Mass/Vol] 33.5 g/dL 29.9 - 35.2 g/dL [facility] MCV (RBC) [Entitic vol] 92.2 fL 81.0 - 99.0 fL [facility] MONOCYTES ABSOLUTE AUTO 0.5 [facility] Monocytes/100 WBC (Bld) 8.7 % 1.7 - 12.0 % [facility] NEUTROPHILS ABSOLUTE AUTO 2.6 [facility] Neutrophils/100 WBC (Bld) 42.7 % Low 43.0 - 75.0 % [facility] Platelet mean volume (Bld) [Entitic vol] 8.8 fL Low 9.5 - 13.5 [facility]L [facility] # [facility].4 [facility] TB PLT 387 [facility] RBC 4.08 Low [facility] WBC 6 [facility] IGP,APTIMA HPV,AGE GDLNon AGE GDLN ACOG TESTING Note . [facility] Comment on above: TESTS RESULT FLAG UN ITS REF RANGE LAB Clinician Provided Cytology Information Source.............Cervix;Endocervix No. of containers..01 ThinPrep Vial Age Algo ACOG Omaira... FLAG LEGEND: L-Low Normal,H-High Normal,LL-Alert Low,HH-Alert High <-Panic Low,>-Panic High,A-Abnormal,AA-Critical Abnormal Performed at: 01 =[address] [address] Nava Almaguer MD, HPV APTIMA Negative Negative [facility] Comment on above: This nucleic acid am plification test detects fourteen high- risk HPV types (16,18,31,33,35,39,45,51,52,56,58,59,66,68) without differentiation. Performed at: =[address] [id number] Performance Architect: Nava Almaguer MD, Phone: [phone] Performed at: [address] [id number] Performance Architect: Nava Almaguer MD, Phone: [phone] IGP, APTIMA HPV, RFX 16/18,45 Note . [facility] Comment on above: TESTS RESULT FLAG U NITS REF RANGE LAB DIAGNOSIS: 02 NEGATIVE FOR INTRAEPITHELIAL LESION OR MALIGNANCY. Specimen adequacy: 02 Satisfactory for evaluation. Endocervical and/or squamous metaplastic cells (endocervical component) are present. Performed by: 02 Rock Alonso, Pumper Gager Apprentice (ASCP) . 02 Note: Note 02 The Pap [...] High,A-Abnormal,AA-Critical Abnormal Performed at: 02 [facility] [address] [address] Nava Almaguer MD, BRUSH-SPATULA CERVIX ENDOCERVIX [facility] Vital Signs Date Time Vital Sign Value Performing Clinician Faci lity 02-18-2025 10:39-0400 Body mass index (BMI) [Ratio] 26.09 kg/m2 [employer] Phone: [facility] [employer] 02-18-2025 10:39-0400 Body weight 68.95 kg [employer] Phone: [facility] [employer] 02-18-2025 10:39-0400 Diastolic blood pressure 68 mm[Hg] [employer] Phone: [facility] [employer] 02-18-2025 10:39-0400 Systolic blood pressure 118 mm[Hg] [employer] Phone: [facility] [employer] 10-21-2024 11:36-0500 Body mass index (BMI) [Ratio] 26.09 kg/m2 [employer] Phone: [facility] [employer] 10-21-2024 11:36-0500 Body weight 68.95 kg [employer] Phone: [facility] 10-21-2024 11:36-0500 Diastolic blood pressure 70 mm[Hg] Keiko Mika DO Work Phone: [facility] 10-21-2024 11:36-0500 Systolic blood pressure 130 mm[Hg] Keiko Mika DO Work Phone: [facility] 09-16-2024 11:30-0400 Body mass index (BMI) [Ratio] 24.91 kg/m2 Keiko Mika DO Work Phone: [facility] 09-16-2024 11:30-0400 Body weight 65.83 kg Keiko Mika DO Work Phone: [facility] 09-16-2024 11:30-0400 Diastolic blood pressure 70 mm[Hg] Keiko Mika DO Work Phone: [facility] 09-16-2024 11:30-0400 Systolic blood pressure 110 mm[Hg] Keiko Mika DO Work Phone: [facility] Encounters Encounter Date Encounter Type Care Provider Facility Start: 06-29-2025 End: 06-30-2025 [facility] Result Encounter Keiko Mika DO Work Phone: [facility] Unsolicited Start: 06-29-2025 End: 06-30-2025 [facility] Result Encounter Keiko Mika DO Work Phone: [facility]solic[facility] Start: 05-29-2025 End: 05-30-2025 [facility] Result Encounter Keiko Mika DO Work Phone: [facility] Unsolicited Start: 05-29-2025 End: 05-30-2025 [facility] Result Encounter Keiko Mika DO Work [...] department patient visit NO PCP NO PCP [facility] Start: 02-24-2025 End: 02-25-2025 [facility] Result Encounter [...] [facility] Start: 10-21-2024 End: 10-21-2024 Office outpatient visit 15 minutes Keiko Mika DO Work Phone: [facility] Comment on above: Menorrhagia with irr [...] 18-39 yrs Keiko Mika DO Work Phone: [facility] Comment on above: Well woman exam with routine gynecological exam; PCOS (polycystic ovarian syndrome); Irregular periods/menstrual cycles Start: 09-16-2024 End: 09-16-2024 ambulatory KEIKO MIKA Not Available Start: 09-06-2022 End: 09-06-[address] KEIKO BRENNAN Facility:H1 Procedures Date Procedure Procedure Detail Performing Clinician Start: 06-29-2025 ALL PROGESTERONE Keiko Mika DO Work Phone: Start: 05-29-2025 ALL PROGESTERONE Keiko Mika DO Work Phone: Start: 04-25-2025 ALL PROGESTERONE Keiko Mika DO [...] Screening for malign ant neoplasm of cervix [facility] Start: 07-28-2025 Influenza vaccination [facility] Start: 02-18-2025 End: 02-18-2025 Patient encounter procedure 02/18/2025 10:10 AM EDT Office Visit [facility] [address] [place] [address] Keiko Brennan, DO [address], [place] [id number] [facility] Start: 10-21-2024 End: 10-21-2024 Patient encounter procedure [facility] Comment on above: Arrived Start: 09-16-2024 End: 09-16-2025 Antimullerian hormone (AMH) Antimullerian hormone (AMH) Lab Routine Irregular periods/menstrual cycles Expected: 09/16/2024, Expires: 09/16/2025 [facility] Comment on above: Expected: 09/16/2024 , Expires: 09/16/2025 Start: 09-16-2024 End: 09-16-2025 CBC W Auto Differential panel - Blood CBC and differential Lab Routine Irregular periods/menstrual cycles Expected: 09/16/2024 (Approximate), Expires: 09/16/2025 [facility] Comment on above: Expected: 09/16/2024 (Approximate), Expires: 09/16/2025 Start: 09-16-2024 End: 09-16-2025 DHEA DHEA Lab Routine Irregular periods/menstrual cycles Expected: 09/16/2024, Expires: 09/16/2025 [facility] Comment on above: Expected: 09/16/2024 , Expires: 09/16/2025 Start: 09-16-2024 End: 09-16-2025 DHEA-sulfate DHEA-sulfate Lab Routine Irregular periods/menstrual cycles Expected: 09/16/2024 (Approximate), Expires: 09/16/2025 [facility] Comment on above: Expected: 09/16/2024 (Approximate), Expires: 09/16/2025 Start: 09-16-2024 End: 09-16-2025 Follicle stimulating hormone Follicle stimulating hormone Lab Routine Irregular periods/menstrual cycles Expected: 09/16/2024 (Approximate), Expires: 09/16/2025 [facility] Comment on above: Expected: 09/16/2024 (Approximate), Expires: 09/16/2025 Start: 09-16-2024 End: 09-16-2025 hCG, quantitative, hCG, quantitative, Lab Routine Irregular periods/menstrual cycles Expected: 09/16/2024 (Approximate), Expires: 09/16/2025 [facility] Comment on above: Expected: 09/16/2024 (Approximate), Expires: 09/16/2025 Start: 09-16-2024 End: 09-16-2025 Hemoglobin A1c/Hemoglobin.total in Blood Hemoglobin A1c Lab Routine Irregular periods/menstrual cycles Expected: 09/16/2024 (Approximate), Expires: 09/16/2025 [facility] Comment on above: Expected: 09/16/2024 (Approximate), Expires: 09/16/2025 Start: 09-16-2024 End: 09-16-2025 Luteinizing hormone Luteinizing hormone Lab Routine Irregular periods/menstrual cycles Expected: 09/16/2024 (Approximate), Expires: 09/16/2025 [facility] Comment on above: Expected: 09/16/2024 (Approximate), Expires: 09/16/2025 Start: 09-16-2024 End: 09-16-2025 Thyrotropin [Units/volume] in Serum or Plasma TSH Lab Routine Irregular periods/menstrual cycles Expected: 09/16/2024 (Approximate), Expires: 09/16/2025 [facility] Comment on above: Expected: 09/16/2024 (Approximate), Expires: 09/16/2025 Start: 09-16-2024 End: 09-16-2025 Thyroxine (T4) free [Mass/volume] in Serum or Plasma T4, free Lab Routine Irregular periods/menstrual cycles Expected: 09/16/2024 (Approximate), Expires: 09/16/2025 [facility] Comment on above: Expected: 09/16/2024 (Approximate), Expires: 09/16/2025 Start: 09-16-2024 End: 09-16-2025 US for US PELVIS-TRANSVAG IF INDICATED Imaging Routine Irregular periods/menstrual cycles Expected: 09/16/2024 (Approximate), Expires: 09/16/2025 [facility] Comment on above: Expected: 09/16/2024 (Approximate), Expires: 09/16/2025 Start: 07-28-2024 Influenza vaccination Influenza Vacc ine (#1) [facility] Start: 2016 Screening for malign ant neoplasm of cervix [facility] Start: 2007 Screening for malign ant neoplasm of cervix Pap Smear [facility] Cytology Cervical or vaginal smear or scraping study Pap Smear Pathology and Cytology Routine Well woman exam with routine gynecological exam Ordered: 09/16/2024 [facility] Work Phone: Comment on above: Ordered: 09/16/2024 Human papilloma viru s DNA [Presence] in Unspecified specimen by Probe with amplification HPV DNA probe, amplified Microbiology Routine Well woman exam with routine gynecological exam Ordered: 09/16/2024 [facility] Comment on above: Ordered: 09/16/2024 Payers Date Payer Category Payer Unknown [id number] 2023 Medicaid [employer] [place] [id number] 2023 Medicaid [id number] 1986 Unknown [id number] 1986 Unknown [id number] 1986 Unknown [id number] 1986 Unknown [id number] 1986 Unknown [id number] 1959 Unknown [id number] Social History Date Type Detail Facility Tobacco smoking stat [facility] Tobacco smoking consumption unknown [facility] Start: 1985 Sex assigned at Female [facility] Start: 09-04-2023 Gender identity Identifies as female gender (finding) [facility] Start: 09-04-2023 Sexual orientation Bisexual (finding ) [facility] History of Present illness Narrative 02-18-2025 Carolyn [...] nursing note reviewed. Exam conducted with a physician practice coordinator present. Vitals: Estimated body mass index is [...] [facility] History of Present illness Narrative 10-21-2024 [...] nursing note reviewed. Exam conducted with a physician practice coordinator present. Vitals: Estimated body mass index is [...] nursing note reviewed. Exam conducted with a physician practice coordinator present. Vitals: Estimated body mass index is [...] and content) DATE CREATED AUTHOR 09/06/2022 [facility] DATE CREATED AUTHOR AUTHOR'S ORGANIZ ATION 02/19/2025 [facility] DATE CREATED AUTHOR AUTHOR'S ORGANIZ ATION 03/08/2025 [facility] Reason for Visit (unrecogniz ed section and content) Reason Comments Well Women Visit Reason Comments Menorrhagia Reason Comments Follow-up Pt present today for a f/up visit for fertility. As of 01/06/2025 it has been her 3rd round of Femara and HSG was discussed at that visit. Care Teams (unrecognized sec tion and content) Brim Shaper Relationship Specialty Start Date End Date Pearl, Rosemarie Liao MD [address] [place] [address] PCP - [facility] [place] CHIEF INFORMATION SECURITY OFFICER 02/26/24 Brim Shaper Relationship Specialty Start Date End Date WonderjoseRosemarie MD [address] [place] [address] PCP - [facility] [place] CHIEF INFORMATION SECURITY OFFICER 02/26/24 Brim Shaper Relationship Specialty Start Date End Date Wonderly, Rosemarie Liao MD [address] [facility] [place] [address] PCP - [facility] [place] [facility] 02/26/24 Brim Shaper Relationship Specialty Start Date End Date Wonderjose, Rosemarie Liao MD [address] [place] [address] PCP - [facility] [place] [facility] 02/26/24 Brim Shaper Relationship Specialty Start Date End Date WonderjoseRosemarie MD [address] [facility] [place] [address] PCP - [facility] [place] [facility] 02/26/24 Brim Shaper Relationship Specialty Start Date End Date WonderRosemarie garcia MD PCP - [facility] [place] [facility] 02/26/24 FOR RECORDS PERTAINING TO PATIENTS WHO [...] BE BASED ON THE PRIMARY CLINICAL RECORDS. [facility] [employer] [facility]. provides no warranty or guarantee of the accuracy or completeness of information in this document.
== END 2025-07-29 08:41 | disposition home or self-care (01) ==
LOC: LAB 08:41
PROVIDERS: Visit Provider Obstetrics & Gynecology
DX: N97.0 Female infertility associated with anovulation (principal)
CPT/HCPCS: 36415; 84144

== ENCOUNTER 2025-08-26 10:55 | Outpatient (OUT) | payer MEDICAID, SELFPAY ==
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
== END 2025-08-26 10:56 | disposition home or self-care (01) ==
LOC: LAB 10:57
PROVIDERS: Visit Provider Obstetrics & Gynecology
DX: N97.0 Female infertility associated with anovulation (principal)
CPT/HCPCS: 36415; 84144

== ENCOUNTER 2025-09-12 13:01 | Day surgery (SDC) | payer MEDICAID, SELFPAY ==
--- OUTSIDE RECORDS SUMMARY | 2025-09-12 13:04 | XMS_ITS | Clinical Summary ---
Author Organization [employer] tem Address [id number] [address] [place] [address] Care Team Providers Care Staking Technician Name Role Phone No Pcp, No Pcp [...] 09/16/2024 [employer] Not on file Insurance [facility] MEDICAID AUTO INSURANCE Care Teams Staking Technician Relationship Specialty Start Date End Date No Pcp, [place] [address] PCP - General 04/22/13
--- OUTSIDE RECORDS SUMMARY | 2025-09-12 13:05 | XMS_ITS | CCD ---
Author Organization [facility] Care Team Providers Care [employer] Mechanic Name Role Phone DR KEIKO BRENNAN Admitting Unavailable DR KEIKO BRENNAN Attending Unavailable DR KEIKO BRENNAN Consulting Unavailable Rosemarie Kang MD Unavailable [phone] KEIKO BRENNAN Attending Unavailable KEIKO BRENNAN Attending Unavailable KEIKO BRENNAN Attending Unavailable NO PCP, NO PCP Primary Care Unavailable Rosemarie Kang MD Unavailable Allergies Allergy Classification Reported Allergen(s) Allergy Type Date of Onset Reaction(s) Facility (1 source) Acetaminophen / HYDROcodone Drug Allergy 7 The [facility] Repository (1 source) Cefaclor Drug Allergy 7 [facility] Repository (2 sources) Penicillins; Translations: [PENICILLINS] Drug allergy (disorder) 7 [facility] Repository (18 sources) Cefaclor; Translations: [CEFACLOR] Drug Allergy 9 Rash [facility] (17 sources) penciclovir Drug Allergy 3 Hives, Itching, Rash, Shortness of breath, Swelling, Wheezing [facility] Work Phone: (17 sources) Penicillins Propensity to adverse reactions 9 Rash [facility] Medications Current Medications Medication Drug Class(es) Dates Sig (Normalized) Sig (Original) 27-1 MG tablet (17 sources) Start: 08-06-2025 End: 08-06-2026 take 1 tablet by mouth once daily 27-1 MG tablet Indications: Abnormal uterine bleeding (AUB) Take 27 mg by mouth 1 (one) time each day at the same time 30 tablet 11 08/06/2025 08/06/2026 Active Start: 07-08-2025 End: 07-08-2026 take 1 tablet by mouth once daily 27-1 MG tablet Indications: Abnormal uterine bleeding (AUB) Take 27 mg by mouth 1 (one) time each day at the same time 30 tablet 07/08/2025 07/08/2026 Active Start: 08-05-2024 End: 08-05-2025 take 1 tablet by mouth once daily 27-1 MG tablet Indications: Abnormal uterine bleeding (AUB) Take 27 mg by mouth 1 (one) time each day at the same time 30 tablet 08/05/2024 08/05/2025 Active Problems Problem Classification Problem [...] Value Interpretation Reference Range Facility ALL PROGESTERONEon PROGESTERONE 15.8 ng/mL . [facility] are Comment on above: Follicular phase 0.1 - 0.9 Luteal phase 1.8 - 23.9 Ovulation phase 0.1 - 12.0 First trimester 11.0 - 44.3 Second trimester 25.4 - 83.3 Third trimester 58.7 - 214.0 Postmenopausal 0.0 - 0.1 Performed at: [facility] [id number] Therapy Aide: Alireza Banuelos PhD, Phone: [phone] [employer] ALL PROGESTERONEon 5 PROGESTERONE 6.8 ng/mL . [facility] are Comment on above: Follicular phase 0.1 - 0.9 Luteal phase 1.8 - 23.9 Ovulation phase 0.1 - 12.0 First trimester 11.0 - 44.3 Second trimester 25.4 - 83.3 Third trimester 58.7 - 214.0 Postmenopausal 0.0 - 0.1 Performed at: [address] [id number] Therapy Aide: Alireza Banuelos PhD, Phone: [phone] [employer] ALL PROGESTERONEon 5 PROGESTERONE 27.1 ng/mL . [facility] are Comment on above: Follicular phase 0.1 - 0.9 Luteal phase 1.8 - 23.9 Ovulation phase 0.1 - 12.0 First trimester 11.0 - 44.3 Second trimester 25.4 - 83.3 Third trimester 58.7 - 214.0 Postmenopausal 0.0 - 0.1 Performed at: [address] [id number] Therapy Aide: Alireza Banuelos PhD, Phone: [phone] [facility] ALL PROGESTERONEon 202 5 PROGESTERONE 33.3 ng/mL . [facility] are Comment on above: Follicular phase 0.1 - 0.9 Luteal phase 1.8 - 23.9 Ovulation phase 0.1 - 12.0 First trimester 11.0 - 44.3 Second trimester 25.4 - 83.3 Third trimester 58.7 - 214.0 Postmenopausal 0.0 - 0.1 Performed at: [address] [id number] Therapy Aide: Alireza Banuelos PhD, Phone: [phone] [facility] ALL PROGESTERONEon 202 5 PROGESTERONE 4.3 ng/mL . [facility] are Comment on above: Follicular phase 0.1 - 0.9 Luteal phase 1.8 - 23.9 Ovulation phase 0.1 - 12.0 First trimester 11.0 - 44.3 Second trimester 25.4 - 83.3 Third trimester 58.7 - 214.0 Postmenopausal 0.0 - 0.1 Performed at: [facility] [id number] Therapy Aide: Alireza Banuelos PhD, Phone: [phone] [facility] ALL PROGESTERONEon 5 PROGESTERONE 20.6 ng/mL . [facility] are Comment on above: Follicular phase 0.1 - 0.9 Luteal phase 1.8 - 23.9 Ovulation phase 0.1 - 12.0 First trimester 11.0 - 44.3 Second trimester 25.4 - 83.3 Third trimester 58.7 - 214.0 Postmenopausal 0.0 - 0.1 Performed at: [facility] [id number] Therapy Aide: Alireza Banuelos PhD, Phone: [phone] [facility] CT BRAIN WO CONTon 5 CT BRAIN [...] Gonzalez MD on 03/06/2025 6:45 PM Normal [facility] CT CERVICAL SPINE WO CONTon 03-06-2025 [...] Gonzalez MD on 03/06/2025 6:45 PM Normal [facility] ALL PROGESTERONEon PROGESTERONE 20.5 ng/mL . [facility] are Comment on above: Follicular phase 0.1 - 0.9 Luteal phase 1.8 - 23.9 Ovulation phase 0.1 - 12.0 First trimester 11.0 - 44.3 Second trimester 25.4 - 83.3 Third trimester 58.7 - 214.0 Postmenopausal 0.0 - 0.1 Performed at: [facility] [place] [id number] Therapy Aide: Alireza Banuelos PhD, Phone: [phone] [facility] e HCG ( test) Ql (U)o n 02-18-2025 Interpretation and review of laboratory results Normal [facility] Preg Test, Ur Negative Negative [facility] e Urinalysis macro (dipstick) panel (U)on 02-18-2025 Bilirubin, UA Negative Negative - 4(70) +++ mg/dL [facility] Blood, UA Positive Negative - 50 Jack/mcL [facility] Comment on above: trace Clarity, UA Clear [facility] re Color, UA Yellow [facility] e Glucose, UA Negative Negative - 2000(110) ++++ mg/dL [facility] Interpretation and review of laboratory results Abnormal [facility] Ketones, UA Negative Negative - 160(16) ++++ mg/dL [facility] Leukocytes, UA Negative Negative - 500+++ Osiris/mcL [facility] Nitrite, UA Negative Negative - Positive [facility] pH, UA 8.5 5 - 9 [facility] [employer] e Protein, UA Negative Negative - 2000(20) ++++ mg/dL [facility] Spec Grav, UA 1.015 1 - 1.03 [facility] Urobilinogen, UA 0.2 0.2 - 12 mg/dL [facility] e ALL PROGESTERONEon PROGESTERONE 19.9 ng/mL . [facility] are Comment on above: Follicular phase 0.1 - 0.9 Luteal phase 1.8 - 23.9 Ovulation phase 0.1 - 12.0 First trimester 11.0 - 44.3 Second trimester 25.4 - 83.3 Third trimester 58.7 - 214.0 Postmenopausal 0.0 - 0.1 Performed at: [facility] [place] [id number] Therapy Aide: Alireza Banuelos PhD, Phone: [phone] [facility] [employer] [facility] ALL CBC WITH AUTO DIFFon BASOPHILS ABSOLUTE AUTO 0.1 [facility] Basophils/100 WBC (Bld) 0.8 % 0.2 - 2.0 % [facility] Eosinophils/100 WBC (Bld) 6.7 % 0.9 - 7.0 % [facility] Erythrocyte distribution width (RBC) [Ratio] 11.9 % 11.0 - 15.0 % [facility] Hematocrit (Bld) [Volume fraction] 37.6 % 36.0 - 48.0 % [facility] [employer] Hemoglobin (Bld) [Mass/Vol] 12.6 g/dL 12.0 - 16.0 g/dL [facility] IMMATURE GRANULOCYTES ABS AUTO 0.02 [facility] Immature granulocytes/100 WBC (Bld) 0.3 % 0.0 - 0.5 % [facility] Interpretation and review of laboratory results Abnormal [facility] LYMPHOCYTES ABSOLUTE AUTO 2.5 [facility] Lymphocytes/100 WBC (Bld) 40.8 % 20.5 - 60.0 % [facility] MCH (RBC) [Entitic mass] 30.9 pg 26.7 - 34.0 pg [facility] MCHC (RBC) [Mass/Vol] 33.5 g/dL 29.9 - 35.2 g/dL [facility] MCV (RBC) [Entitic vol] 92.2 fL 81.0 - 99.0 fL [facility] MONOCYTES ABSOLUTE AUTO 0.5 [facility] Monocytes/100 WBC (Bld) 8.7 % 1.7 - 12.0 % [facility] NEUTROPHILS ABSOLUTE AUTO 2.6 [facility] Neutrophils/100 WBC (Bld) 42.7 % Low 43.0 - 75.0 % [facility] Platelet mean volume (Bld) [Entitic vol] 8.8 fL Low 9.5 - 13.5 fL [facility] Healthc are TBH EO # 0.4 [facility] PLT 387 [facility] TB RBC 4.08 Low [facility] TB WBC 6 [facility] e IGP,APTIMA HPV,AGE GDLNon -2023 AGE GDLN ACOG TESTING Note . [facility] Comment on above: TESTS RESULT FLAG UN ITS REF RANGE LAB Clinician Provided Cytology Information Source.............Cervix;Endocervix No. of containers..01 ThinPrep Vial Age Algo ACOG Omaira... 30-65 01 FLAG LEGEND: L-Low Normal,H-High Normal,LL-Alert Low,HH-Alert High <-Panic Low,>-Panic High,A-Abnormal,AA-Critical Abnormal Performed at: 01 =G [facility] [place] [address] Nava Almaguer MD, HPV APTIMA Negative Negative [facility] Comment on above: This nucleic acid am plification test detects fourteen high- risk HPV types (16,18,31,33,35,39,45,51,52,56,58,59,66,68) without differentiation. Performed at: =G - [facility], [place] [id number] Therapy Aide: Nava Almaguer MD, Phone: [phone] Performed at: - [facility], [place] [id number] Therapy Aide: Nava Almaguer MD, Phone: [phone] IGP, APTIMA HPV, RFX 16/18,45 Note . [facility] Comment on above: TESTS RESULT FLAG UN ITS REF RANGE LAB DIAGNOSIS: 02 NEGATIVE FOR INTRAEPITHELIAL LESION OR MALIGNANCY. Specimen adequacy: 02 Satisfactory for evaluation. Endocervical and/or squamous metaplastic cells (endocervical component) are present. Performed by: Conrad Alonso, Press Box Custodian (ASCP) . 02 Note: Note 02 The [...] Low,>-Panic High,A-Abnormal,AA-Critical Abnormal Performed at: [address] [address] Nava Almaguer MD, BRUSH-SPATULA CERVIX ENDOCERVIX [facility] Vital Signs Date Time Vital Sign Value Performing Clinician Yudy vu 02-18-2025 10:39-0400 Body mass index (BMI) [Ratio] 26.09 kg/m2 Keiko Mika DO Work Phone: [facility] 02-18-2025 10:39-0400 Body weight 68.95 kg Keiko Mika DO Work Phone: [facility] 02-18-2025 10:39-0400 Diastolic blood pressure 68 mm[Hg] Keiko Mika DO Work Phone: [facility] 02-18-2025 10:39-0400 Systolic blood pressure 118 mm[Hg] Keiko Mika DO Work Phone: [facility] 10-21-2024 11:36-0500 Body mass index (BMI) [Ratio] 26.09 kg/m2 Keiko Mika DO Work Phone: [facility] 10-21-2024 11:36-0500 Body weight 68.95 kg Keiko Mika DO Work Phone: [facility] 10-21-2024 11:36-0500 Diastolic blood pressure 70 mm[Hg] Keiko Mika DO Work Phone: [facility] 10-21-2024 11:36-0500 Systolic blood pressure 130 mm[Hg] Keiko Mika DO Work Phone: [facility] 09-16-2024 11:30-0400 Body mass index (BMI) [Ratio] 24.91 kg/m2 Keiko Mika DO Work Phone: [facility] 09-16-2024 11:30-0400 Body weight 65.83 kg Keiko Mika DO Work Phone: [facility] 09-16-2024 11:30-0400 Diastolic blood pressure 70 mm[Hg] Keiko Miak DO Work Phone: [facility] 09-16-2024 11:30-0400 Systolic blood pressure 110 mm[Hg] Keiko Mika DO Work Phone: [facility] Encounters Encounter Date Encounter Type Care Provider Facility Start: 08-26-2025 End: 08-27-2025 [facility] Result Encounter Keiko Mika DO Work Phone: [facility] Unsolicited Start: 08-26-2025 End: 08-27-2025 [facility] Result Encounter Keiko Mika DO Work Phone: [facility]solic[facility] Start: 07-29-2025 End: 07-30-2025 [facility] Result Encounter Keiko Mika DO Work Phone: [facility]solicited Start: 07-29-2025 End: 07-30-2025 [facility] Result Encounter Keiko Mika DO Work [...] department patient visit NO PCP NO PCP [facility] Start: 02-24-2025 End: 02-25-2025 [facility] Result [...] Date Procedure Procedure Detail Performing Clinician Start: 08-26-2025 ALL PROGESTERONE Keiko Mika DO Work Phone: Start: 07-29-2025 ALL PROGESTERONE Keiko Mika DO Work Phone: Start: 06-29-2025 ALL PROGESTERONE Keiko Mika DO [...] Screening for malign ant neoplasm of cervix [facility] Start: 09-18-2025 End: 09-18-2025 Patient encounter procedure 09/18/2025 10:00 AM EDT Procedure Visit [facility] [address] [place] [id number] [place], [place] [address] [place], [place] [id number] [facility] Start: 07-28-2025 Influenza vaccination [facility] Start: 02-18-2025 End: 02-18-2025 Patient encounter procedure 02/18/2025 10:10 AM EDT Office Visit [facility] [address] [place] [id number] Keiko Brennan DO [address] [place] [address] [facility] Start: 10-21-2024 End: 10-21-2024 Patient encounter procedure [facility] Comment on above: Arrived Start: 09-16-2024 End: 09-16-2025 Antimullerian hormone (AMH) Antimullerian hormone (AMH) Lab Routine Irregular periods/menstrual cycles Expected: 09/16/2024, Expires: 09/16/2025 [facility] Comment on above: Expected: 09/16/2024 , Expires: 09/16/2025 Start: 09-16-2024 End: 09-16-2025 CBC W Auto Differential panel - Blood CBC and differential Lab Routine Irregular periods/menstrual cycles Expected: 09/16/2024 (Approximate), Expires: 09/16/2025 [facility] Comment on above: Expected: 09/16/2024 (Approximate), Expires: 09/16/2025 Start: 09-16-2024 End: 09-16-2025 DHEA DHEA Lab Routine Irregular periods/menstrual cycles Expected: 09/16/2024, Expires: 09/16/2025 [facility] Comment on above: Expected: 09/16/2024 , Expires: 09/16/2025 Start: 09-16-2024 End: 09-16-2025 DHEA-sulfate DHEA-sulfate Lab Routine Irregular periods/menstrual cycles Expected: 09/16/2024 (Approximate), Expires: 09/16/2025 [facility] Comment on above: Expected: 09/16/2024 (Approximate), Expires: 09/16/2025 Start: 09-16-2024 End: 09-16-2025 Follicle stimulating hormone Follicle stimulating hormone Lab Routine Irregular periods/menstrual cycles Expected: 09/16/2024 (Approximate), Expires: 09/16/2025 [facility] Comment on above: Expected: 09/16/2024 (Approximate), Expires: 09/16/2025 Start: 09-16-2024 End: 09-16-2025 hCG, quantitative, hCG, quantitative, Lab Routine Irregular periods/menstrual cycles Expected: 09/16/2024 (Approximate), Expires: 09/16/2025 [facility] Comment on above: Expected: 09/16/2024 (Approximate), Expires: 09/16/2025 Start: 09-16-2024 End: 09-16-2025 Hemoglobin A1c/Hemoglobin.total in Blood Hemoglobin A1c Lab Routine Irregular periods/menstrual cycles Expected: 09/16/2024 (Approximate), Expires: 09/16/2025 [facility] Comment on above: Expected: 09/16/2024 (Approximate), Expires: 09/16/2025 Start: 09-16-2024 End: 09-16-2025 Luteinizing hormone Luteinizing hormone Lab Routine Irregular periods/menstrual cycles Expected: 09/16/2024 (Approximate), Expires: 09/16/2025 [facility] Comment on above: Expected: 09/16/2024 (Approximate), Expires: 09/16/2025 Start: 09-16-2024 End: 09-16-2025 Thyrotropin [Units/volume] in Serum or Plasma TSH Lab Routine Irregular periods/menstrual cycles Expected: 09/16/2024 (Approximate), Expires: 09/16/2025 [facility] Comment on above: Expected: 09/16/2024 (Approximate), Expires: 09/16/2025 Start: 09-16-2024 End: 09-16-2025 Thyroxine (T4) free [Mass/volume] in Serum or Plasma T4, free Lab Routine Irregular periods/menstrual cycles Expected: 09/16/2024 (Approximate), Expires: 09/16/2025 [facility] Comment on above: Expected: 09/16/2024 (Approximate), Expires: 09/16/2025 Start: 09-16-2024 End: 09-16-2025 US for US PELVIS-TRANSVAG IF INDICATED Imaging Routine Irregular periods/menstrual cycles Expected: 09/16/2024 (Approximate), Expires: 09/16/2025 [facility] Comment on above: Expected: 09/16/2024 (Approximate), Expires: 09/16/2025 Start: 07-28-2024 Influenza vaccination Influenza Vacc ine (#1) [facility] Start: 2016 Screening for malign ant neoplasm of cervix [facility] Start: 2007 Screening for malign ant neoplasm of cervix Pap Smear [facility] Cytology Cervical or vaginal smear or scraping study Pap Smear Pathology and Cytology Routine Well woman exam with routine gynecological exam Ordered: 09/16/2024 [facility] Work Phone: Comment on above: Ordered: 09/16/2024 Human papilloma viru s DNA [Presence] in Unspecified specimen by Probe with amplification HPV DNA probe, amplified Microbiology Routine Well woman exam with routine gynecological exam Ordered: 09/16/2024 [facility] Comment on above: Ordered: 09/16/2024 Payers Date Payer Category Payer Unknown [id number] 2023 Medicaid [facility] [id number] 2023 Medicaid [id number] 1985 Unknown [id number] 1985 Unknown [id number] 1986 Unknown [id number] 1986 Unknown [id number] 1986 Unknown [id number] 1959 Unknown [id number] Social History Date Type Detail Facility Tobacco smoking stat [facility] Tobacco smoking consumption unknown [facility] Start: 1985 Sex assigned at Female [facility] Start: 09-04-2023 Gender identity Identifies as female gender (finding) [facility] Start: 09-04-2023 Sexual orientation Bisexual (finding ) [facility] History of Present illness Narrative 02-18-2025 Carolyn [...] nursing note reviewed. Exam conducted with a short piece handler present. Vitals: Estimated body mass index is [...] nursing note reviewed. Exam conducted with a short piece handler present. Vitals: Estimated body mass index is [...] Keiko Brennan DO documented in this encounter [facility] History of Present illness Narrative 09-16-2024 [...] nursing note reviewed. Exam conducted with a short piece handler present. Vitals: Estimated body mass index is [...] Keiko Brennan DO documented in this encounter [facility] Evaluation note Note Date & Type [...] content) DATE CREATED AUTHOR 09/06/2022 [facility] DATE CREATED AUTHOR AUTHOR'S ORGANIZ ATION 02/19/2025 [facility] EPIC DATE CREATED AUTHOR AUTHOR'S ORGANIZ ATION 03/08/2025 [facility] Reason for Visit (unrecogniz ed section and content) Reason Comments Well Women Visit Reason Comments Menorrhagia Reason Comments Follow-up Pt present today for a f/up visit for fertility. As of 01/06/2025 it has been her 3rd round of Femara and HSG was discussed at that visit. Care Teams (unrecognized sec tion and content) [employer] Relationship Specialty Start Date End Date Rosemarie Kang MD [address] [place] [address] PCP - [facility] 02/26/24 [employer] Mechan[employer] Relationship Specialty Start Date End Date Rosemarie Kang MD [address] [place] [address] PCP - [facility] 02/26/24 [employer] Mechan[employer] Relationship Specialty Start Date End Date Rosemarie Kang MD [address] [place] [address] PCP - [facility] 02/26/24 [employer] Mechan[employer] Relationship Specialty Start Date End Date Rosemarie Kang MD [address] [place] [address] PCP - JOHN Esquivel [facility] 02/26/24 [employer] Mechanic Relationship Specialty Start Date End Date Rosemarie Kang MD [address] [place] [address] PCP - [facility] 02/26/24 [employer] Mechan[employer] Relationship Specialty Start Date End Date WonderlyRosemarie MD PCP - [facility] 02/26/24 [employer] Mechan[employer] Relationship Specialty Start Date End Date Wonderly, Rosemarie Liao MD PCP - [facility] 02/26/24 FOR RECORDS PERTAINING TO PATIENTS [...] BE BASED ON THE PRIMARY CLINICAL RECORDS. [facility]. provides no warranty or guarantee of the accuracy or completeness of information in this document.
--- NOTE | 2025-09-12 13:14 | FL_ITS ---
The [address] [address] Patient Name: MITRA MURPHY MRN: [id number] date: 1985 Sex: F Assigned Patient Location: MD Current Patient Location: Accession/Order Number: [id number] Exam Date: 09/12/2025 13:25 Report Date: 09/12/2025 14:46 At the request of: KEIKO MIRELES DO Procedure: FL Hysterosal cath placement Hysterosalpingogram. Reason for exam: Infertility. FINDINGS: The procedure was performed by the MAIL CARRIER TECHNICIAN service. No radiologist was present at time of procedure. Only 3 images were obtained. There appears be a normal contour of the uterus. There is reported spillage of the tubes per technologist notes. FL/FL Hysterosal cath placement IMPRESSION: HSG performed by the MAIL CARRIER TECHNICIAN service. Impression dictated by: Arturo Vazquez Jr., D.O. 09/12/2025 2:46 PM Dictation Location: [place] [address] Electronically authenticated by: [id number] Y Date: 09/12/2025 14:46
--- NOTE | 2025-09-12 13:14 | FL_ITS ---
The [address] [address] Patient Name: MITRA MURPHY MRN: [id number] date: 1985 Sex: F [facility]igned [facility] Patient Location: Accession/Order Number: [id number] Exam Date: 09/12/2025 13:25 Report Date: 09/12/2025 14:46 At the request of: KEIKO MIRELES DO Procedure: FL Hysterosal cath placement Hysterosalpingogram. Reason for exam: Infertility. FINDINGS: The procedure was performed by the SOUP PERSON service. No radiologist was present at time of procedure. Only 3 images were obtained. There appears be a normal contour of the uterus. There is reported spillage of the tubes per technologist notes. FL/FL hysterosalpingography IMPRESSION: HSG performed by the SOUP PERSON service. Impression dictated by: Arturo Vazquez Jr., D.O. 09/12/2025 2:46 PM Dictation Location: [place] [address] Electronically authenticated by: [id number] Y Date: 09/12/2025 14:46
[2025-09-12 14:13] VITALS: BMI 26.0
--- NOTE | 2025-09-12 14:20 | SUR.PREOP ---
09/09/25 Pt instructed on procedure, date, time, and prep.
--- NOTE | 2025-09-12 14:21 | PC.NURSE ---
1355 Pt denies any abdominal cramping or vaginal bleeding.
== END 2025-09-12 14:00 | disposition home or self-care (01) ==
LOC: FL 13:02
PROVIDERS: Visit Provider Obstetrics & Gynecology
DX: N97.0 Female infertility associated with anovulation (principal); N83.9 Noninflammatory disorder of ovary, fallopian tube and broad ligament, unspecified
CPT/HCPCS: 36415; 58340; 74740; 84702; Q9966

== ENCOUNTER 2025-09-18 19:21 | Outpatient (REF) | payer MEDICAID, SELFPAY ==
--- OUTSIDE RECORDS SUMMARY | 2025-09-18 10:00 | XMS_ITS | Encounter Summary ---
Author Organization [facility] Address [address] [facility] [place] [address] Care Team Providers Care Cushion Maker Name Role Phone Pearl Rosemarie Liao MD Unavailable Reason for Visit * ReasonCommentsWell Women Visit Encounter Details DateTypeDepartmentCare Team (Latest Contact Info)Uuwskxmrzmp97/23/2025 10:00 AM EDTProcedure Visit [facility] OBGYAngela [address] [place] [phone] Luna Hill PA [address] [place] [address] Well woman exam with routine gynecological exam Social History Tobacco UseTypesPacks/DayYears UsedDateSmoking Tobacco: Never Assessed CommentsNoSex and Gender InformationValueDate RecordedSex Assigned at Qtfqea6609/04/2023 9:07 AM EDTLegal HpgBsezgc46/15/2023 11:47 PM EDTGender XoyuwvdvVkxkng40/09/2023 9:07 AM EDTSexual NfsuoixeebkDzrqxcsy68/09/2023 9:07 AM EDTdocumented as of this encounter Last Filed Vital Signs Vital SignReadingTime TakenCommentsBlood Rscdhegt059/801 10:10 AM EDT Pulse--Temperature--Respiratory Rate--Oxygen Saturation--Inhaled Oxygen Concentration--Wmquxz06.3 kg (152 lb 12.8 oz)09/18/2025 10:10 AM EDTHeight--Body Mass Index26.231 11:15 AM EDTdocumented in this encounter Progress Notes * NENITA Estrada - 09/18/2025 10:00 AM EDT Reason for Appointment: Patient ID: Heather Whitten is a 39 y.o. female who presents for Well Women [...] History: Diagnosis Date Abnormal uterine bleeding Asthma (HCC) Emotional sensitivity HISTORY PAST MEDICAL HISTORY SOCIAL HISTORY Past Medical History: Diagnosis Date Abnormal uterine bleeding Asthma (HCC) Emotional sensitivity Social History Tobacco Use Smoking [...] appearance. She is well-developed. Genitourinary: Vulva normal. Right Adnexa: not tender and no mass present. Left Adnexa: not tender and no mass present. No cervical discharge. Breasts: Breasts are soft. Right: Normal. Left: Normal. HENT: Head: Normocephalic. Nose: Nose normal. Mouth/Throat: Mouth: Mucous membranes are moist. Cardiovascular: Rate and Rhythm: Normal rate and regular rhythm. Pulmonary: Effort: Pulmonary effort is normal. Breath sounds: Normal breath sounds. Abdominal: General: Bowel sounds are normal. There is no distension. Palpations: Abdomen is soft. Tenderness: There is no abdominal tenderness. There is no guarding or rebound. Musculoskeletal: General: No swelling. Normal range of motion. Cervical back: Normal range of motion. Right lower leg: No edema. Left lower leg: No edema. Neurological: General: No focal deficit present. Mental Status: She is alert and oriented to person, place, and time. Skin: General: Skin is warm and dry. Psychiatric: Mood and Affect: Mood normal. Behavior: Behavior normal. Vitals and nursing note reviewed. Exam conducted with a feed research aide present. Vitals: Estimated body mass index is 26.23 kg/m?? as calculated from the following: Height as of 09/11/23: 5' 4 . Weight as of this encounter: 152 lb 12.8 oz. BP: 120/80 Patient's last menstrual period was 09/08/2025. Assessment/Plan ICD-10-CM 1. Well woman exam with routine gynecological exam Z01.419 Pap Smear HPV DNA probe, amplified Annual Exam: Patient presents today for an annual exam. Patient states she is doing well and has no complaints. Pap was obtained without difficulty. Orders Placed This Encounter Procedures HPV DNA probe, amplified Follow Up: Patient is to return in one year for annual unless needed otherwise. Documented by Mckenzie Perez LPN on behalf of: NENITA Estrada documented in this encounter Plan of Treatment DateTypeDepartmentCare Team (Latest Contact Info)Hpyxsjhpyky64/02/2026 9:00 AM ESTProcedure Visit [facility]BG[facility]ela [address] [place] [phone] Ebenezer Brennan DO [address] [place] [address] NameTypePriorityAssociated DiagnosesOrder SchedulePap SmearPathology and CytologyRoutine Well woman exam with routine gynecological exam Ordered: 09/18/2025HPV DNA probe, amplifiedMicrobiologyRoutine Well woman exam with routine gynecological exam Ordered: 09/18/2025documented as of this encounter Visit Diagnoses Diagnosis Well woman exam with routine gynecological exam Routine gynecological examination documented in this encounter Care Teams Team MemberRelationshipSpecialtyStart DateEnd Date Rosemarie Kang MD PCP - [facility]02/26/24documented as of this encounter
--- OUTSIDE RECORDS SUMMARY | 2025-09-18 19:23 | XMS_ITS | Clinical Summary ---
Author Organization [email or web address] Address [id number] [address] [place] [address] Care Team Providers Care Shoe Dresser Name Role Phone No Pcp, No Pcp Primary Care Provider Unavailabl e Allergies Active AllergyReactionsCriticalityNoted RysbAcoasnimTujwzdik24/05/2019 Pbamyzpggii23/05/2019 Medications MedicationSigDispense QuantityRefillsLast FilledStart DateEnd DateStatus levonorgestrel (MIRENA) 20 mcg/24 hr (5 years) IUD 1 each by intrauterine route once.Active fluticasone propionate (FLONASE) 50 mcg/actuation nasal spray Administer 1 spray into each nostril daily. 16 g 08/01/2021ctive Additional Information Patient not taking.Reported on 03/06/2025 benzocaine-menthoL (CHLORASEPTIC SORE THROAT) 6-10 mg lozenge Dissolve 1 lozenge in the mouth every 2 (two) hours as needed for sore throat. 100 tablet 08/01/2021ctive Additional Information Patient not taking.Reported on 03/06/2025 ondansetron ODT (ZOFRAN ODT) 4 mg disintegrating tablet Dissolve 1 tablet (4 mg total) on tongue every 8 (eight) hours as needed for nausea for up to 10 doses. 10 tablet 5Active Active Problems No known active problems Social History Tobacco UseTypesPacks/DayYears UsedDateSmoking Tobacco: Every DayCigarettes Smokeless Tobacco: Never Tobacco Cessation:Ready to Q uit: No; Counseling Given: Yes Alcohol UseStandard Drinks/WeekCommentsYes0 (1 standard drink = 0.6 oz pure alcohol)rarelyChildcareAnswerDate WgztdlihUwnaegmeyQwgqkzi02/07/2019Employment AnswerDate VlusjeftUzkiaepbvzUrkjdcl01/07/2019Hunger ScreeningAnswerDate RecordedWithin the past 12 months we worried whether our food would run out before we got money to buy more.Never True03/06/2025Within the past 12 months the food we bought just didn't last and we didn't have money to get more.Never True03/06/2025Purpose - LifeAnswerDate RecordedPurpose and direction in life Imsobwj86/11/2021CommentsUnknownSex and Gender InformationValueDate RecordedSex Assigned at WpgefMdlsyo63/27/2022 1:42 PM EDTLegal SexFemale 07/02/2015 11:33 AM EDTGender PqhpapuqGgxuew50/27/2022 1:42 PM EDTSexual YzxaiputncwLpgrxxhj50/27/2022 1:42 PM EDT Last Filed Vital Signs Vital SignReadingTime TakenCommentsBlood Jqixnsmw350/9203/06/2025 5:49 PM EDT Zdbsv828803/06/2025 5:49 PM RUWImmsddrvbas21.7 ??C (98 ??F)03/06/2025 5:49 PM EDT Respiratory Khgz766803/06/2025 5:49 PM EDTOxygen Loifvcraac71%03/06/2025 5:49 PM EDTInhaled Oxygen Concentration--Zzvqzd52.5 kg (140 lb)03/06/2025 5:49 PM EDT Bgrvbx674.6 cm (5' 4 )03/06/2025 5:49 PM EDTBody Mass Index24.03003/06/2025 5:49 PM EDT Plan of Treatment Health MaintenanceDue DateLast DoneCommentsTobacco Mcyyihiyrb50/02/1987 Depression Apsnezsnf38/02/1999DTaP,Tdap and Td Vaccines (1 - Tdap)2005 Influenza Osdqlsz2907/28/2025dult BMI Fubujwgbz18Tobacco Nkyvftecn23Pap Smear10/21/441301/ Medical Devices Not on file Insurance Care Teams Team MemberRelationshipSpecialtyStart DateEnd Date [place], [place] [address] PCP - [facility]04/22/13
--- OUTSIDE RECORDS SUMMARY | 2025-09-18 19:23 | XMS_ITS | Encounter Summary ---
Author Organization [facility] Address [address] [facility] [place] [address] Care Team Providers Care Silo Operator Name Role Phone Rosemarie Kang MD Unavailable Encounter Details DateTypeDepartmentCare Team (Latest Contact Info)Hltysfeewey83/23/2025amboo flowsheet [facility] [address] [place] [address] Luna Hill PA [address] [place], [place] [address] Social History Tobacco UseTypesPacks/DayYears UsedDateSmoking Tobacco: Never Assessed CommentsNoSex and Gender InformationValueDate RecordedSex Assigned at Uyohii8609/04/2023 9:07 AM EDTLegal NlvSdxxdy44/15/2023 11:47 PM EDTGender LqseoasbPakfjv05/09/2023 9:07 AM EDTSexual JlkcjijbtunVrhogjnw45/09/2023 9:07 AM EDTdocumented as of this encounter Plan of Treatment DateTypeDepartmentCare Team (Latest Contact Info)Zchicjfnvks23/02/2026 9:00 AM ESTProcedure Visit [facility] [address] [facility] [place] [address] Ebenezer Brennan DO [address] [facility] [address] [place], [facility] documented as of this encounter Visit Diagnoses Not on filedocumented in this encounter Care Teams Team MemberRelationshipSpecialtyStart DateEnd Date Rosemarie Kang MD PCP - [facility]02/26/24documented as of this encounter
--- OUTSIDE RECORDS SUMMARY | 2025-09-18 19:23 | XMS_ITS | Encounter Summary ---
Author Organization [facility] Address [address] [place] [address] Care Team Providers Care Job Press Operator Name Role Phone Rosemarie Kang MD Unavailable Encounter Details DateTypeDepartmentCare Team (Latest Contact Info)Fkrraylakiw97/16/2025Travel Social History Tobacco UseTypesPacks/DayYears UsedDateSmoking Tobacco: Never Assessed CommentsNoSex and Gender InformationValueDate RecordedSex Assigned at Pfhhhx0609/04/2023 9:07 AM EDTLegal IgiNsidcs72/15/2023 11:47 PM EDTGender BdgnwcuiXdxeod16/09/2023 9:07 AM EDTSexual ZixbdcrwnueAtglshxc91/09/2023 9:07 AM EDTdocumented as of this encounter Plan of Treatment DateTypeDepartmentCare Team (Latest Contact Info)Pdddxbgqfsj46/02/2026 9:00 AM ESTProcedure Visit [facility] [address] [place] [phone] Ebenezer Brennan DO [address] [facility] [address] [place], [facility]11 documented as of this encounter Visit Diagnoses Not on filedocumented in this encounter Care Teams Team MemberRelationshipSpecialtyStart DateEnd Date Rosemarie Kang MD PCP - [facility]02/26/24documented as of this encounter
--- OUTSIDE RECORDS SUMMARY | 2025-09-18 19:23 | XMS_ITS | Clinical Summary ---
Author Organization [facility] Address [address] [facility] [place] [address] Care Team Providers Care Mail Handler Name Role Phone PearlRosemarie MD Unavailable Allergies Active AllergyReactionsCriticalityNoted MpnyLmwdaizyWmdlxzclNgwbPsw78/05/2019 PenciclovirHives,Itching,Rash,Shortness of breath,Swelling,WheezingHigh 09/07/20233832OnrmuchvfsfMipxTfe20/05/2019 Medications MedicationSigDispense QuantityRefillsLast FilledStart DateEnd DateStatus 27-1 MG tablet Indications:Abnormal uterine bleeding (AUB)Take 27 mg by mouth 1 (one) time each day at the same time 30 tablet 1109/509/6Active letrozole (Femara) 2.5 MG chemo tablet Indications:Anovulation,Female infertility,Fallopian tube disorderTake 3 tablets (7.5 mg total) by mouth Daily for 5 days. 15 tablet /Expired Encounters DateTypeDepartmentCare TbkvDkllrorngnb89/23/2025 10:00 AM EDTProcedure Visit [facility] [address] [place] [address] Luna Hill PA Well woman exam with routine gynecological exam09/18/2025amboo flowsheet [facility] [address] [place] [address] Luna Hill PA 09/11/20256441Yxgyfl85/13/2025Telephone [facility] [address] [facility] [place] [address] Ebenezer Brennan, DO 08/31/2025Refill [facility] [address] [facility] [place] [address] Ebenezer Brennan, DO Oifwnzbddbu15/30/2025Clinisync Result Encounter [facility] External Department Unsolicited Ebenezer Brennan, DO 08/06/2025Refill [facility] [address] [facility] [place] [address] Ebenezer Brennan, DO Abnormal uterine bleeding (AUB); Tqbxgbkqzko45/06/2025Refill [facility] [address] [facility] [place] [address] Ebenezer Brennan, Vaeogftndti50/02/2025Clinisync Result Encounter [facility] External Department Unsolicited Ebenezer Brennan, DO 07/08/2025Refill [facility] [address] [facility] [place] [address] Ebenezer Brennan, DO Uqpjscwfvrp67/08/2025Refill [facility] [address] [facility] [place] [address] Ebenezer Brennan, DO Anovulation; Abnormal uterine bleeding (AUB)5Clinisync Result Encounter [facility] External Department Unsolicited Ebenezer Brennan, DO from Last 3 Months Family History Medical HistoryRelationNameCommentsAsthmaDaughterDiabetesMotherHeart disease MotherRelationNameStatusCommentsDaughterMother Social History Tobacco UseTypesPacks/DayYears UsedDateSmoking Tobacco: Never Assessed CommentsNoSex and Gender InformationValueDate RecordedSex Assigned at Tlcwrc1309/04/2023 9:07 AM EDTLegal KopIchwhw25/15/2023 11:47 PM EDTGender XmvbutjzCczpog37/09/2023 9:07 AM EDTSexual GmlabuhhvbpAjxnhscj97/09/2023 9:07 AM EDT Last Filed Vital Signs Vital SignReadingTime TakenCommentsBlood Ljivlblz472/801 10:10 AM EDT Pulse--Temperature--Respiratory Rate--Oxygen Saturation--Inhaled Oxygen Concentration--Lqreee59.3 kg (152 lb 12.8 oz)09/18/2025 10:10 AM CIAQmttfb562.6 cm (5' 4 )09/11/2023 11:15 AM EDTBody Mass Index26.231 11:15 AM EDT Plan of Treatment DateTypeDepartmentCare Team (Latest Contact Info)Yfctlhtzpbm53/02/2026 9:00 AM ESTProcedure Visit [facility] [address] [facility] [place] [address] Ebenezer Brennan, DO [address] [facility] [address] [place], [place] [phone] Health MaintenanceDue DateLast DoneCommentsHPV/Dmhyxg0112/29/2016Influenza Vaccine (#1)5Cervical Cancer Fmmedsbhk69/21/2027Pap Smear Procedures Procedure NamePriorityDate/TimeAssociated DiagnosisCommentsALL PROGESTERONE Elhkhli1208/26/2025 11:04 AM EDT ALL IZSTTUGLQOBTPqwukya24/02/2025 9:07 AM EDT ALL HZGMEBWCENXVTpobwkb19/03/2025 10:52 AM EDT PAP KEEERPevzmts66/21/2024 12:00 AM EDTfrom Last 3 Months or Most Recently Relevant to Health Maintenance Results * ALL PROGESTERONE (08/26/2025 11:04 AM EDT) Only the most recent of3 resultswithin the time period is included. ComponentValueRef RangeTest MethodAnalysis TimePerformed AtPathologist Signature MGPJVUEUZYLF28.8. ng/mLTBHComment: ? Follicular phase ? 0.1 - ?? 0.9 ? Luteal phase ? 1.8 - ??23.9 ? Ovulation phase ?0.1 - ??12.0 ?First trimester ?11.0 - ??44.3 ?Second trimester ?? 25.4 - ??83.3 ?Third trimester ?58.7 - 214.0 ? Postmenopausal ? 0.0 - ?? 0.1 Performed at: ??CB - [facility] [address] ??[id number] Coffee Machine Technician: Alireza Banuelos PhD, Phone: ??[phone] Specimen (Source)Anatomical Location / LateralityCollection Method / Volume Collection TimeReceived Time08/26/2025 11:04 AM EDT08/26/2025 11:05 AM EDT Narrative [facility] - 08/27/2025 4:07 AM EDT Authorizing ProviderResult TypeResult StatusCorey Mika DOCLINISYNCFinal Result Performing OrganizationAddressCity/State/ZIP CodePhone Number [facility] * Pap Smear (09/16/2024 12:00 AM EDT)Specimen (Source)Anatomical Location / LateralityCollection Method / VolumeCollection TimeReceived TimeSwabCervical swab / Unknown Narrative Authorizing ProviderResult TypeResult StatusFazio Nurse [facility] ObLAB CYTOLOGY ORDERABLESFinal ResultPerforming OrganizationAddressCity/State/ZIP CodePhone Number EXTERNAL LAB from Last 3 Months or Most Recently Relevant to Health Maintenance Insurance Care Teams Team MemberRelationshipSpecialtyStart DateEnd Date Rosemarie Kang MD PCP - [facility]02/26/24
--- OUTSIDE RECORDS SUMMARY | 2025-09-18 19:23 | XMS_ITS | Encounter Summary ---
Author Organization [facility] Address [address] [facility] [address] [place] [address] Care Team Providers Care Sergeant Missile Crewman Name Role Phone Pearl Rosemarie Liao MD Unavailable Encounter Details DateTypeDepartmentCare Team (Latest Contact Info)Qezipfebhqf29/13/2025Telephone [facility] [address] [place] [phone] Ebenezer Brennan DO [address] [facility] [address] [place], [place] [address] Social History Tobacco UseTypesPacks/DayYears UsedDateSmoking Tobacco: Never Assessed CommentsNoSex and Gender InformationValueDate RecordedSex Assigned at Orumyi0709/04/2023 9:07 AM EDTLegal BqtCjhzyd85/15/2023 11:47 PM EDTGender WlxqueeqYnrtzx66/09/2023 9:07 AM EDTSexual UuwacncfcwxFrfurwmq52/09/2023 9:07 AM EDTdocumented as of this encounter Miscellaneous Notes * Telephone Encounter - Arlette Whelan LPN - 09/09/2025 9:37 AM EDT Called [facility] and LM for Senior Game Designer Doris that Dr. Brennan would like to perform HSG on Monday between surgeries if possible. Will await call back from reservationist. Arlette Enamorado LPN * Addendum Note - Mckenzie Lincoln LPN - 09/08/2025 3:35 PM EDTAddended by: MCKENZIE LINCOLN on: 09/08/2025 03:35 PM Modules accepted: Orders * Telephone Encounter - Mckenzie Lincoln LPN - 09/08/2025 3:25 PM EDT Patient returned call and she states that she did start today. Patient was advised that we will send orders over to [facility] for an HSG which was discussed at last visit. Patient advised she will need to call the hospital to pre-register for the HSG and lab and this will be done day 5-7 of cycle and meds will still be sent and she will also draw progesterone on day 21. Orders sent at this time to Doris at [facility] * Telephone Encounter - Mckenzie Lincoln LPN - 09/08/2025 10:20 AM EDT Patient called the office and she left a voicemail asking for her Femara medication be sent into the [facility]. Patient call was returned and a voicemail was returned for patient to reach back out to office as we do have questions for her as to when she started her cycle. Last office note patient was to have HSG with next cycle and was to call investment officer on day 1 of cycle. documented in this encounter Plan of Treatment DateTypeDepartmentCare Team (Latest Contact Info)Ljtefqmffaq36/02/2026 9:00 AM ESTProcedure Visit [facility] [address] [place] [phone] Ebenezer Brennan DO [address] [place] [address] NameTypePriorityAssociated DiagnosesOrder SchedulehCG, quantitative, LabRoutine Anovulation Female infertility Fallopian tube disorder Preoperative clearance Expected: 09/08/2025 (Approximate), Expires: 09/08/2026XR hysterosalpingogram ImagingRoutine Anovulation Female infertility Fallopian tube disorder Expected: 09/08/2025 (Approximate), Expires: 09/08/2026documented as of this encounter Visit Diagnoses Diagnosis Anovulation Female infertility associated with anovulation Female infertility Female infertility of unspecified origin Fallopian tube disorder Unspecified noninflammatory disorder of ovary, fallopian tube, and broad ligament Preoperative clearance Unspecified pre-operative examination documented in this encounter Care Teams Team MemberRelationshipSpecialtyStart DateEnd Date Pearl, Rosemarie Liao MD PCP - [facility]02/26/24documented as of this encounter
--- OUTSIDE RECORDS SUMMARY | 2025-09-18 19:25 | XMS_ITS | CCD ---
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 [facility] HealthcareStart: 74-69-2860Gyvess orientationBisexual (finding)[facility] HealthcareStart: 06-22-0055QkuWnbxplLWRH Healthcare History of Present illness Narrative 09-18-2025 Note Date & TpdiWfpjFnqapzje52-81-9003 History of Present illness Narrative* NENITA Estrada - 09/18/2025 10:00 AM EDT [...] nursing note reviewed. Exam conducted with a operational intelligence analyst present. Vitals: Estimated body mass index is 26.23 kg/m as calculated from the following: Height [...] behalf of: NENITA Estrada documented in this encounterNOMS Healthcare History of Present illness Narrative 02-18-2025 Note Date & VqatGogqHzlgqskf35-19-9482 History of Present illness Narrative* Carolyn Edwards LPN - 02/18/2025 10:10 AM EDT Reason for Appointment: Patient ID: [...] nursing note reviewed. Exam conducted with a operational intelligence analyst present. Vitals: Estimated body mass index is [...] of: Keiko Brennan DO documented in this encounterNOMS Healthcare History of Present illness Narrative 10-21-2024 Note Date & ToecGevjHnvugpfx24-68-2969 History of Present illness Narrative* Carolyn Edwards, MOLD YARD WORKER - 10/21/2024 11:10 AM EST Reason for Appointment: Patient ID: Heather Whitten [...] nursing note reviewed. Exam conducted with a operational intelligence analyst present. Vitals: Estimated body mass index is [...] further questions/concerns. Reviewed labs and ultrasound with ptin detail. No orders of the defined types were placed in this encounter. Follow Up: 4 months Documented by Carolyn Edwards LPN on behalf of: Keiko Brennan DO documented in this encounterNOMS Healthcare History of Present illness Narrative 09-16-2024 Note Date & QxhgNgfhMrlvnxeu14-83-9930 History of Present illness Narrative* Arlette Whelan LPN - 09/16/2024 11:00 AM EDT Reason for Appointment: Patient ID: [...] nursing note reviewed. Exam conducted with a operational intelligence analyst present. Vitals: Estimated body mass index is [...] of: Keiko Brennan DO documented in this encounterM[facility] Healthcare Evaluation note Note Date & TypeNoteFacilityEvaluation note* Diagnosis Well woman exam with routine gynecological exam Routine gynecological examination PCOS (polycystic ovarian syndrome) Polycystic ovaries Irregular periods/menstrual cycles documented in this encounter [facility] Healthcare Evaluation note Note Date & TypeNoteFacilityEvaluation note* Diagnosis Menorrhagia with irregular cycle documented in this encounter [facility] Healthcare Evaluation note Note Date & TypeNoteFacilityEvaluation note* Diagnosis Encounter for follow-up Female infertility Female infertility of unspecified origin documented in this encounter [facility] Healthcare Evaluation note Note Date & TypeNoteFacilityEvaluation note* Diagnosis Well woman exam with routine gynecological exam Routine gynecological examination documented in this encounter [facility] Healthcare Summary Purpose Family History No Family History Records FoundNo Family History Records FoundNo Family History Records Found Advance Directives No Advanced Directives Records FoundNo Advanced Directives Records FoundNo Advanced Directives Records Found Additional Source Comments INFORMATION SOURCE (unrecogn ized section and content) DATE CREATED AUTHOR 09/06/2022 [facility] DATE CREATED AUTHOR AUTHOR'S ORGANIZ ATION 02/19/2025 [facility] EPIC DATE CREATED AUTHOR AUTHOR'S ORGANIZ ATION 03/08/2025 [facility] Reason for Visit (unrecogniz ed section and content) ReasonCommentsWell Women VisitReasonCommentsMenorrhagiaReasonCommentsFollow-upPt present today for a f/up visit for fertility. As of 01/06/2025 it has been her 3rd round of Femara and HSG was discussed at that visit. Care Teams (unrecognized sec tion and content) Team MemberRelationshipSpecialtyStart DateEnd Date Rosemarie Kang MD [address] [place] [address] PCP - JOHN APONTE02/26/24Team MemberRelationshipSpecialtyStart DateEnd Date Rosemarie Kang MD [address] [place] [address] PCP Rachel APONTE02/26/24Team MemberRelationshipSpecialtyStart DateEnd Date WonderRosemarie garcia MD [address] [place] [facility] [place] [address] PCP - [facility]02/26/24Te MemberRelationshipSpecialtyStart DateEnd Date WonderRosemarie garcia MD [address] [place] [facility] [place] [address] PCP - [facility]02/26/24Te MemberRelationshipSpecialtyStart DateEnd Date WonderRosemarie garcia MD [address] [place] [facility] [place] [address] PCP - [facility]02/26/24Te MemberRelationshipSpecialtyStart DateEnd Date WonderRosemarie garcia MD PCP - [facility]02/26/24Te MemberRelationshipSpecialtyStart DateEnd Date WonderRosemarie garcia MD PCP - [facility]02/26/24Te MemberRelationshipSpecialtyStart DateEnd Date RichRosemarie garcia MD PCP - [facility]02/26/24 FOR RECORDS PERTAINING TO PATIENTS WHO ARE [...] BE BASED ON THE PRIMARY CLINICAL RECORDS. [facility] [employer] [facility]. provides no warranty or guarantee of the accuracy or completeness of information in this document.
[2025-09-24 00:08] LABS: Age Gdln ACOG Testing Note (.); IGP, Aptima HPV, rfx 16/18,45 Note (.)
== END 2025-09-18 19:22 | disposition home or self-care (01) ==
LOC: LAB 19:21
PROVIDERS: Visit Provider Physician Assistant
DX: Z01.419 Encounter for gynecological examination (general) (routine) without abnormal findings (principal)
CPT/HCPCS: 88175

== ENCOUNTER 2025-09-28 09:36 | Outpatient (RCR) | payer MEDICAID, SELFPAY | END 2025-10-27 08:23 | disposition home or self-care (01) | LOC: LAB 09:36 | PROVIDERS: Visit Provider Obstetrics & Gynecology | DX: Z51.81 Encounter for therapeutic drug level monitoring (principal) | CPT/HCPCS: 36415; 84144 ==

== ENCOUNTER 2025-11-26 10:08 | Outpatient (OUT) | payer MEDICAID, SELFPAY ==
--- OUTSIDE RECORDS SUMMARY | 2025-11-26 10:12 | XMS_ITS | Clinical Summary ---
Author Organization [employer] tem Address [id number] [address] [place] [address] Care Team Providers Care Turbo Operator Name Role Phone No Pcp, No Pcp Primary Care Provider Unavailabl e Allergies Active AllergyReactionsCriticalityNoted NqkzIszgtegfOghhktte25/05/2019 Yvmfuflkehc56/05/2019 Medications MedicationSigDispense QuantityRefillsLast FilledStart DateEnd DateStatus levonorgestrel [...] standard drink = 0.6 oz pure alcohol)rarelyChildcareAnswerDate DhyhmrywRttuzmetjJltaypa03/07/2019Employment AnswerDate QghasgebCszyngrqdvGieowhz16/07/2019Hunger ScreeningAnswerDate RecordedWithin the past 12 months we worried whether our food would run out before we got money to buy more.Never True03/06/2025Within the past 12 months the food we bought just didn't last and we didn't have money to get more.Never True03/06/2025Purpose - LifeAnswerDate RecordedPurpose and direction in life Zavjjta65/11/2021CommentsUnknownSex and Gender InformationValueDate RecordedSex Assigned at OsokaWmgghl60/27/2022 1:42 PM EDTLegal SexFemale 07/02/2015 11:33 AM EDTGender JvjuueefZpfxdf34/27/2022 1:42 PM EDTSexual IawjhhktbrsIrdjjdjb19/27/2022 1:42 PM EDT Last Filed Vital Signs Vital SignReadingTime TakenCommentsBlood Skjkcwwh261/9203/06/2025 5:49 PM EDT Jktxk646903/06/2025 5:49 PM TBGLzbspawgwtr57.7 ??C (98 ??F)03/06/2025 5:49 PM EDT Respiratory Owdj385803/06/2025 5:49 PM EDTOxygen Qgvapqpnke71%03/06/2025 5:49 PM EDTInhaled Oxygen Concentration--Jubags45.5 kg (140 lb)03/06/2025 5:49 PM EDT Qlritx841.6 cm (5' 4 )03/06/2025 5:49 PM EDTBody Mass Index24.03003/06/2025 5:49 PM EDT Plan of Treatment Health MaintenanceDue DateLast DoneCommentsTobacco Ejpcpchmhc92/02/1987 Depression Foifokrzm18/02/1999DTaP,Tdap and Td Vaccines (1 - Tdap)2005 Influenza Ybnnydv6507/28/2025dult BMI Zzcdlzorn40Tobacco Gqlpbwunc16Pap Smear10/21/492954/ Medical Devices Not on file Insurance Care Teams Team MemberRelationshipSpecialtyStart DateEnd Date [place], [place] [address] PCP - [facility]04/22/13
--- OUTSIDE RECORDS SUMMARY | 2025-11-26 10:12 | XMS_ITS | Clinical Summary ---
Author Organization [facility] Address [address] [facility] [address] Care Team Providers Care Cashier Payments Received Name Role Phone RichjoseRosemarie MD Unavailable Allergies Active AllergyReactionsCriticalityNoted ProiIqevseemHeruzvsjZgxcKhz58/05/2019 PenciclovirHives,Itching,Rash,Shortness of breath,Swelling,WheezingHigh 7891TugqfjfkdfiCgnoLmq93/05/2019 Medications MedicationSigDispense QuantityRefillsLast FilledStart DateEnd DateStatus 27-1 MG tablet Indications:Abnormal uterine bleeding (AUB)Take 27 mg by mouth 1 (one) time each day at the same time 30 tablet 110/509/6Active letrozole (Femara) 2.5 MG chemo tablet Indications:Anovulation,PCOS (polycystic ovarian syndrome),Irregular menstrual cycleTake 3 tablets (7.5 mg total) by mouth Daily for 5 days. 15 tablet Expired Encounters DateTypeDepartmentCare CjwsVuauasjrmar32/15/2025Telephone [facility] [address] [place] [phone] Arlette Whelan LPN 10/26/2025linisync Result Encounter [facility] External Department Unsolicited Keiko Brennan DO 10/07/2025Refill [facility] [address] [place] [address] Keiko Brennan DO Anovulation; Female infertility; Fallopian tube vprtxsiz49/06/2025Refill [facility] [address] [place] [phone] Keiko Brennan, DO Anovulation; Female infertility; Fallopian tube hcfyaenf64/05/2025Orders Only [facility] [address] [place] [address] Mckenzie Perez, MERCHANDISING SPECIALIST 09/28/2025linisync Result Encounter [facility]OM[facility] External Department Unsolicited Keiko Brennan, DO 09/18/2025 10:00 AM EDTProcedure Visit [facility] [address] [place] [address] Luna Hill PA Well woman exam with routine gynecological exam09/18/2025linisync Result Encounter [facility] External Department Unsolicited [place] PA 09/18/2025amboo flowsheet [facility] [address] [place] [address] Luna [place] PA 09/12/2025linisync Result Encounter [facility]OM[facility] External Department Unsolicited Keiko Brennan, DO 09/12/2025linisync Result Encounter [facility]OM[facility] External Department Unsolicited Keiko Brennan, DO 09/12/2025bstract [facility] EXT DEP Arlette Whelan, MERCHANDISING SPECIALIST 09/11/20250569Ogzbse42/13/2025Telephone [facility] [address] [place] [address] Keiko Brennan, DO 08/31/2025Refill [facility] [address] [place] [address] Keiko Brennan, DO Pslodagwzko36/30/2025linisync Result Encounter [facility] External Department Unsolicited Keiko Brennan, DO from Last 3 Months Family History Medical HistoryRelationNameCommentsAsthmaDaughterDiabetesMotherHeart disease MotherRelationNameStatusCommentsDaughterMother Social History Tobacco UseTypesPacks/DayYears UsedDateSmoking Tobacco: Never Assessed CommentsNoSex and Gender InformationValueDate RecordedSex Assigned at Mfkybt2009/04/2023 9:07 AM EDTLegal VqxDznolr13/15/2023 11:47 PM EDTGender ToqvcxirPbpfco21/09/2023 9:07 AM EDTSexual DjuojqgvvhsJmydblxs63/09/2023 9:07 AM EDT Last Filed Vital Signs Vital SignReadingTime TakenCommentsBlood Rftwuxdz817/801 10:10 AM EDT Pulse--Temperature--Respiratory Rate--Oxygen Saturation--Inhaled Oxygen Concentration--Dekzoa58.3 kg (152 lb 12.8 oz)09/18/2025 10:10 AM GQFJeyygt795.6 cm (5' 4 )09/11/2023 11:15 AM EDTBody Mass Index26.231 11:15 AM EDT Plan of Treatment DateTypeDepartmentCare Team (Latest Contact Info)Hhybauilxsd21/02/2026 9:00 AM ESTProcedure Visit [facility] [address] [place] [phone] Keiko Brennan DO [address] [place], [place] [phone] Health MaintenanceDue DateLast DoneCommentsHPV/Cjjrmd3512/29/2016Influenza Vaccine (#1)5Cervical Cancer Ubntsllxd85/23/2028Pap Smear, 4Pneumococcal Vaccine: Pediatrics (0 to 5 Years) and At-Risk Patients (6 to 64 Years)Aged OutNo longer eligible based on patient's age to complete this topic Procedures Procedure NamePriorityDate/TimeAssociated DiagnosisCommentsALL PROGESTERONE Zlwwyhk7210/26/2025 10:56 AM EST ALL RSOLORGFTXJSIuhqztn83/02/2025 9:49 AM EST IGP,APTIMA HPV,AGE VSDWAgtzqem00/23/2025 9:56 AM EDT PAP TEST, UGQZHDJIBhjlhyk67/23/2025 12:00 AM EDTFL BLDEJSSNJBCFVLSFYCX78/17/2025 2:46 PM EDT FL HOTYUSULGFMLMGXEIIARC87/17/2025 2:46 PM EDT TBH PREG QUANT JSSEespnur50/17/2025 1:10 PM EDT ALL KOKHHKTIUWAAMvoqftd10/30/2025 11:04 AM EDT from Last 3 Months Results * ALL PROGESTERONE (10/26/2025 10:56 AM EST) Only the most recent of3 resultswithin the time period is included. ComponentValueRef RangeTest MethodAnalysis TimePerformed AtPathologist Signature TPXOIUEKMNSO37.7. ng/mLTBHComment: ? Follicular phase ? 0.1 - ?? 0.9 ? Luteal phase ? 1.8 - ??23.9 ? Ovulation phase ?0.1 - ??12.0 ?First trimester ?11.0 - ??44.3 ?Second trimester ?? 25.4 - ??83.3 ?Third trimester ?58.7 - 214.0 ? Postmenopausal ? 0.0 - ?? 0.1 Performed at: ??CB - [facility] [address] [facility], [place], [place] ??[phone] [employer] Gift Wrapping: Alireza Banuelos PhD, Phone: ??[phone] Specimen (Source)Anatomical Location / LateralityCollection Method / Volume Collection TimeReceived Time10/26/2025 10:56 AM EST10/26/2025 10:57 AM EST Narrative [facility] - 10/28/2025 11:09 AM EST Authorizing ProviderResult TypeResult StatusCorey Mika DOCLINISYNCFinal Result Performing OrganizationAddressCity/State/ZIP CodePhone Number [facility]IN[facility] * IGP,APTIMA HPV,AGE GDLN (09/18/2025 9:56 AM EDT)ComponentValueRef RangeTest MethodAnalysis TimePerformed AtPathologist SignatureAGE GDLN ACOG TESTINGNote. TBHComment: ?? TESTS ? RESULT ??FLAG ??UNITS ?REF RANGE ??LAB ?? Clinician Provided Cytology Information ?? Source.............Cervix;Endocervix ?? No. of containers..01 ThinPrep Vial Age Algo ACOG Omaira... ??30-65 ? 01 ?FLAG LEGEND: ?L-Low Normal,H-High Normal,LL-Alert Low,HH-Alert High <-Panic Low,>-Panic High,A-Abnormal,AA-Critical Abnormal Performed at: 01 =G ?[facility] ?? [address] [place] ??[phone] ?? Nava Almaguer MD, IGP, APTIMA HPV, RFX 16/18,45Note.TBHComment: ?? TESTS ? RESULT ??FLAG ??UNITS ?REF RANGE ??LAB DIAGNOSIS: ?02 ?? NEGATIVE FOR INTRAEPITHELIAL LESION OR MALIGNANCY. Specimen adequacy: ?02 ?? Satisfactory for evaluation. ??Endocervical and/or squamous metaplastic ?? cells (endocervical component) are present. Performed by: ? 02 ?? Kenroy Forde Handwriting Expert (ASCP) . ? 02 Note: ? Note ?02 ?? The Pap smear is a screening test designed to aid in the ?? detection of premalignant and malignant conditions of the ?? uterine cervix. ??It is not a diagnostic procedure and ?? should not be used as the sole means of detecting cervical ?? cancer. ??Both false-positive and false-negative reports do ?? occur. Test Methodology: ? Note ?02 ?? This liquid based ThinPrep(R) pap test was interpreted ?? using the Goal Zero(R) [employer](TM) Cervical Algorithm whole ?? slide imaging system. HPV Genotype Reflex ?? Note ?02 ?? Criteria not met, HPV Genotype not performed. ?FLAG LEGEND: ?L-Low Normal,H-High Normal,LL-Alert Low,HH-Alert High <-Panic Low,>-Panic High,A-Abnormal,AA-Critical Abnormal Performed at: 02 WB ?[facility] ?? [address] [place] ??[phone] ?? Nava Almaguer MD, HPV APTIMANegativeNegativeTBHComment: This nucleic acid amplification test detects fourteen high- risk HPV types (16,18,31,33,35,39,45,51,52,56,58,59,66,68) without differentiation. Performed at: ??=G - [facility] [address] [place], [place] ??[phone] [employer] Gift Wrapping: Nava Almaguer MD, Phone: ??[phone] Performed at: ??WB - [facility] [address] [place], [place] ??[phone] [employer] Gift Wrapping: Nava Almaguer MD, Phone: ??[phone] Specimen (Source)Anatomical Location / LateralityCollection Method / Volume Collection TimeReceived Time09/18/2025 9:56 AM EDT1 7:44 PM EDT Narrative [facility] - 09/24/2025 12:08 AM EDT CERVIX ENDOCERVIX Authorizing ProviderResult TypeResult StatusAmy Liz PALAB BLOOD ORDERABLES Final ResultPerforming OrganizationAddressCity/State/ZIP CodePhone Number [facility]INIS[facility]NC [facility] * PAP TEST, EXTERNAL (09/18/2025 12:00 AM EDT) Narrative Authorizing ProviderResult TypeResult StatusFazio Nurse [facility] ObLAB CYTOLOGY ORDERABLESFinal ResultPerforming OrganizationAddressCity/State/ZIP CodePhone Number EXTERNAL LAB * FL HYSTEROSALPINGOGRAPHY (09/12/2025 2:46 PM EDT)Anatomical RegionLaterality ModalityOtherSpecimen (Source)Anatomical Location / LateralityCollection Method / VolumeCollection TimeReceived Time09/12/2025 2:46 PM EDT Narrative 09/12/2025 2:[address] [facility] ?[address] ? [place] [address] ? Fluoroscopy Report ? Signed Patient: ALYSIA MURPHY ?MR#: [id number] : 1985 ?Acct:[id number] Age/Sex: 39 / F ?ADM Date: 09/12/25 Loc: [place] Attending Dr: Keiko Brennan D.O. Ordering Physician: Keiko Brennan D.O. Date of Service: 09/12/25 Procedure(s): FL hysterosalpingography Accession Number(s): [id number] cc: Keiko Brennan D.O.; Physician,Non-Staff M.D. ? [facility] ? [address] [place] [address] ? [place] [address] ? Patient Name: ALYSIA MURPHY MRN: [id number]:[id number] ? date: 1985 ?Sex: F Assigned Patient Location: [place] Current Patient Location: Accession/Order Number: [id number] Exam Date: 09/12/2025 ??13:25 ?Report Date: 09/12/2025 ??14:46 At the request of: KEIKO ??MIKA ??DO Procedure: ??FL Hysterosal cath placement Hysterosalpingogram. Reason for exam: Infertility. FINDINGS: The procedure was performed by the IT SUPPORT SPECIALIST service. ??No radiologist was present at time of procedure. ??Only 3 images were obtained. ??There appears be a normal contour of the uterus. ??There is reported spillage of the tubes per technologist notes. FL/FL hysterosalpingography IMPRESSION: HSG performed by the IT SUPPORT SPECIALIST service. Impression dictated by: Arturo Vazquez Jr., D.O. ??09/12/2025 2:46 PM Dictation Location: [place] [address] Electronically authenticated by: [id number] ??Y ?? Date: 09/12/2025 ??14:46 Dictated By: ?Arturo Vazquez M.D. Signed By: ?09/12/25 1448 DD/ 45 TD/TT: ? Mash Preparatory Operator: Procedure Note Radiology, Radiologist, MD - 10/07/2025 [place] [address] Fluoroscopy Report Signed Patient: ALYSIA MURPHY TMR#: [id number] : 1985Acct:[id number] Age/Sex: 39 / FADM Date: 09/12/25 Loc: [place] Attending Dr: Keiko Brenann D.O. Ordering Physician: Keiko Brennan D.O. Date of Service: 09/12/25 Procedure(s): FL hysterosalpingography Accession Number(s): [id number] cc: Keiko Brennan D.O.; Physician,Non-Staff [place] [facility] [place] [id number] Patient Name: ALYSIA MURPHY MRN: [facility]:[id number] date: 1985 Sex: F Assigned Patient Location: [place] Current Patient Location: Accession/Order Number: [id number] Exam Date: 09/12/2025 13:25 Report Date: 09/12/2025 14:46 At the request of: KEIKO BRENNAN DO Procedure: FL Hysterosal cath placement Hysterosalpingogram. Reason for exam: Infertility. FINDINGS: The procedure was performed by the IT SUPPORT SPECIALIST service. Noradiologist was present at time of procedure. Only 3 images were obtained. Thereappears be a normal contour of the uterus. There is reported spillage of thetubes per technologist notes. FL/FL hysterosalpingography IMPRESSION: HSG performed by the IT SUPPORT SPECIALIST service. Impression dictated by: Arturo Vazquez Jr., D.O. 09/12/2025 2:46 PM Dictation Location: [place] [address] Electronically authenticated by: [id number] Y Date: 4:46 Dictated By: Arturo Vazquez M.D. Signed By:09/12/25 1448 DD/ 1446 TD/TT: Mash Preparatory Operator: Authorizing ProviderResult TypeResult StatusCorey Mika DOCLINISYNC IMAGINGFinal Result * FL HYSTEROSALPINGOGRAM (09/12/2025 2:46 PM EDT)Anatomical RegionLaterality ModalityOtherSpecimen (Source)Anatomical Location / LateralityCollection Method / VolumeCollection TimeReceived Time09/12/2025 2:46 PM EDT Narrative 09/12/2025 2:[address] [facility] ?[address] ? [place] [address] ? Fluoroscopy Report ? Signed Patient: ALYSIA MURPHY ?MR#: [id number] : 1985 ?Acct:[id number] Age/Sex: 39 / F ?ADM Date: 09/12/25 Loc: [place] Attending Dr: Keiko Brennan D.O. Ordering Physician: Keiko Brennan D.O. Date of Service: 09/12/25 Procedure(s): FL Hysterosal cath placement Accession Number(s): [id number] cc: Keiko Brennan D.O.; Physician,Non-Staff M.D. ? [facility] ? [address] [place] [address] ? [place] [address] ? Patient Name: ALYSIA MURPHY MRN: [id number]:[id number] ? date: 1985 ?Sex: F Assigned Patient Location: [place] Current Patient Location: Accession/Order Number: [id number] Exam Date: 09/12/2025 ??13:25 ?Report Date: 09/12/2025 ??14:46 At the request of: KEIKO ??MIKA ??DO Procedure: ??FL Hysterosal cath placement Hysterosalpingogram. Reason for exam: Infertility. FINDINGS: The procedure was performed by the IT SUPPORT SPECIALIST service. ??No radiologist was present at time of procedure. ??Only 3 images were obtained. ??There appears be a normal contour of the uterus. ??There is reported spillage of the tubes per technologist notes. FL/FL Hysterosal cath placement IMPRESSION: HSG performed by the IT SUPPORT SPECIALIST service. Impression dictated by: Arturo Vazquez Jr., D.O. ??09/12/2025 2:46 PM Dictation Location: [place] [address] Electronically authenticated by: [id number] ??Y ?? Date: 09/12/2025 ??14:46 Dictated By: ?Arturo Vazquez M.D. Signed By: ?09/12/25 1448 DD/ 1446 TD/TT: ? Mash Preparatory Operator: Procedure Note Radiology, Radiologist, MD - 10/07/2025 [place] [address] Fluoroscopy Report Signed Patient: ALYSIA MURPHY TMR#: [id number] : 1985Acct:[id number] Age/Sex: 39 / FADM Date: 09/12/25 Loc: [place] Attending Dr: Keiko Brennan D.O. Ordering Physician: Keiko Brennan D.O. Date of Service: 09/12/25 Procedure(s): FL Hysterosal cath placement Accession Number(s): [id number] cc: Keiko Brennan D.O.; Physician,Non-Staff [place] [place] [id number] Patient Name: ALYSIA MURPHY MRN: [id number] date: 1985 Sex: F Assigned Patient Location: [place] Current Patient Location: Accession/Order Number: [id number] Exam Date: 09/12/2025 13:25 Report Date: 09/12/2025 14:46 At the request of: KEIKO BRENNAN DO Procedure: FL Hysterosal cath placement Hysterosalpingogram. Reason for exam: Infertility. FINDINGS: The procedure was performed by the IT SUPPORT SPECIALIST service. Noradiologist was present at time of procedure. Only 3 images were obtained. Thereappears be a normal contour of the uterus. There is reported spillage of thetubes per technologist notes. FL/FL Hysterosal cath placement IMPRESSION: HSG performed by the IT SUPPORT SPECIALIST service. Impression dictated by: Arturo Vazquez Jr., D.O. 09/12/2025 2:46 PM Dictation Location: [place] [address] Electronically authenticated by: [id number] Y Date: 4:46 Dictated By: Arturo Vazquez M.D. Signed By:09/12/25 1448 DD/ 1446 TD/TT: Mash Preparatory Operator: Authorizing ProviderResult TypeResult StatusCorey Mika DOCLINISYLIZZETTE IMAGINGFinal Result * [facility] PREG QUANT HCG (09/12/2025 1:10 PM EDT)ComponentValueRef RangeTest Method Analysis TimePerformed AtPathologist SignatureHCG QUANTITATIVE<1mIU/mLTBH Comment: 5-50 ? 0.2-1 WEEK 50-500 ? 1-2 WEEKS 100-5,000 ?2-3 WEEKS 500-10,000 ? 3-4 WEEKS 1,000-50,000 ?? 4-5 WEEKS 10,000-100,000 5-6 WEEKS 15,000-200,000 6-8 WEEKS 10,000-100,000 2-3 MONTHS Specimen (Source)Anatomical Location / LateralityCollection Method / Volume Collection TimeReceived Time09/12/2025 1:10 PM EDT1 1:11 PM EDT Narrative [facility] - 09/12/2025 1:38 PM EDT Authorizing ProviderResult TypeResult StatusCorey Mika DOCLINISYNCFinal Result Performing OrganizationAddressCity/State/ZIP CodePhone Number [facility] from Last 3 Months Insurance Care Teams Team MemberRelationshipSpecialtyStart DateEnd Rosemarie Menjivar MD PCP - [facility]02/26/24
--- OUTSIDE RECORDS SUMMARY | 2025-11-26 10:20 | XMS_ITS | CCD ---
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 07-29-2025 End: 09-28-9616Hkmtlfwgw Result EncounterCorey Mika DO Work Phone: noms External Department UnsolicitedStart: 06-29-2025 End: 11-07-4221Vsggdmcwn Result EncounterCorey Mika DO Work Phone: NONB External Department UnsolicitedStart: 06-29-2025 End: 52-03-8029Waggvqylm Result EncounterCorey Mika DO Work Phone: noms External Department UnsolicitedStart: 05-29-2025 End: 85-28-4631Seuxcuclt Result EncounterCorey Mika DO Work Phone: NORD External Department UnsolicitedStart: 05-29-2025 End: 19-08-5262Khslzyzzd Result EncounterCorey Mika DO Work Phone: n[facility] External Department UnsolicitedStart: 04-25-2025 End: 66-80-9689Vxlzrnmhr Result EncounterCorey Miak DO Work Phone: n[facility] External Department UnsolicitedStart: 04-25-2025 End: 26-43-5177Caunaksrd Result EncounterCorey Mika DO Work Phone: n[facility] External Department UnsolicitedStart: 03-26-2025 End: 34-59-5902Qqltvpxes Result EncounterCorey Mika DO Work Phone: n[facility] External Department UnsolicitedStart: 03-26-2025 End: 95-34-8914Fvqrbdbct Result EncounterCorey Mika DO Work Phone: n[facility] External Department UnsolicitedStart: 03-06-2025 End: 39-58-9671Zjyscsnnk department patient visitNO PCP NO PCPProMedica Geneva HospitalStart: 02-24-2025 End: 40-42-1439Prmltpxvn Result EncounterCorey Mika DO Work Phone: n[facility] External Department UnsolicitedStart: 02-24-2025 End: 18-50-0602Taghnphfg Result EncounterCorey Mika DO Work Phone: n[facility] External Department UnsolicitedStart: 02-18-2025 End: 88-48-8474Holpba outpatient visit 15 minutesCorey Mika DO Work Phone: [facility] OBComment on above:Encounter for follow-up; Female infertilityStart: 02-18-2025 End: 73-58-1229dcorcmjreuPRCEQ FAZIONot AvailableStart: 01-27-2025 End: 38-96-3135Fxjzulddz Result EncounterCorey Mika DO Work Phone: n[facility] External Department UnsolicitedStart: 01-27-2025 End: 91-69-1206Juibwhubs Result EncounterCorey Mika DO Work Phone: n[facility] External Department UnsolicitedStart: 10-21-2024 End: 18-19-0660Agdqyt flowsheetCorey Mika DO Work Phone: [facility] BCP OBStart: 10-21-2024 End: 82-05-7968Zhzxoh flowsheetCorey Mika DO Work Phone: [facility] BCP OBStart: 10-21-2024 End: 88-89-1359[place] outpatient visit 15 minutesCorey Mika DO Work Phone: [facility] OBComment on above:Menorrhagia with irregular cycleStart: 10-21-2024 End: 38-00-9413bcimhxvqogBTZZV FAZIONot AvailableStart: 10-19-2024 End: 14-21-9548Ncmkkuklw Result EncounterCorey Mika DO Work Phone: noms External Department UnsolicitedStart: 10-19-2024 End: 87-34-5132Xsntfnkcf Result EncounterCorey Mika DO Work Phone: noms External Department UnsolicitedStart: 10-18-2024 End: 00-76-2089Izkezyxwo Result EncounterCorey Mika DO Work Phone: noms External Department UnsolicitedStart: 10-18-2024 End: 66-00-8260Nffweilyp Result EncounterCorey Mika DO Work Phone: n[facility] External Department UnsolicitedStart: 09-16-2024 End: 34-68-1760Nfldunjwp Result EncounterCorey Mika DO Work Phone: n[facility] External Department UnsolicitedStart: 09-16-2024 End: 87-24-4818Mntjdgtri Result EncounterCorey Mika DO Work Phone: noms External Department UnsolicitedStart: 09-16-2024 End: 62-57-9139Oyxvcis encounter procedureCorey Mika DO Work Phone: [facility] Work Phone: Start: 09-16-2024 End: 64-17-1000Axigukuo preventive med est patient 18-39 yrsCorey Mika DO Work Phone: [facility] BCP OBComment on above:Well woman exam with routine gynecological exam; PCOS (polycystic ovarian syndrome); Irregular periods/menstrual cyclesStart: 09-06-2022 End: 25-80-1869llhjtlckapLR KEIKO FAZIOFacility:H1 Procedures DateProcedureProcedure DetailPerforming ClinicianStart: 43-42-2243DOQ PROGESTERONECorey Mika DO Work Phone: Start: 35-46-3763QVM,APTIMA HPV,AGE GDLNAmy Liz GUTIERRES Work Phone: Start: 38-86-0196Ecuiyxhxywy observation [Identifier] in Cervix by Cyto stainCorey Mika DO Work Phone: Start: 20-02-2519YB HYSTEROSALPINGOGRAMCorey Mika DO Work Phone: Start: 32-66-9174NT HYSTEROSALPINGOGRAPHYCorey Mika DO Work Phone: Start: 87-55-0961CEP PROGESTERONECorey Mika DO Work Phone: Start: 94-49-1324AEQ PROGESTERONECorey Mika DO Work Phone: Start: 68-72-4048WPN PROGESTERONECorey Mika DO Work Phone: Start: 71-00-8021UMH PROGESTERONECorey Mika DO Work Phone: Start: 09-92-1874WJL PROGESTERONECorey Mika DO Work Phone: Start: 19-45-3912POV PROGESTERONECorey Mika DO Work Phone: Start: 74-79-0092CID PROGESTERONECorey Mika DO Work Phone: Start: 02-18-2025 End: 24-25-3251Xyjrw dip stick/tablet rgnt non-auto w/o micrscpCorey Mika DO Work Phone: Start: 84-30-8819VOV PROGESTERONECorey Mika DO Work Phone: Start: 29-39-6517TD PELVIS W/ TRANSVAGINALCorey Mika DO Work Phone: Start: 99-49-0765PTP CBC WITH AUTO DIFFCorey Mika DO Work Phone: Start: 63-04-9006DZK,APTIMA HPV,AGE GDLNCorey Mika DO Work Phone: Start: 91-52-0171Nezqjjyospt observation [Identifier] in Cervix by Cyto stainCorey Mika DO Work Phone: Plan of Treatment DateCare ActivityDetailAuthorStart: 33-15-4914Zuqgayrpp for malignant neoplasm of cervixNOMS HealthcareStart: 93-17-1246Sexladrqj for malignant neoplasm of cervixNOMS HealthcareStart: 09-28-2026 End: 70-18-1441Gokihqs encounter gesxwwhma18/02/2026 9:00 AM EST Procedure Visit [facility] [address] [place] [id number] Keiko Brennan, DO [address] [place] [address] [facility] [place] OBGYNStart: 09-18-2025 End: 33-36-7557Ljnantm encounter procedureNOMS [place] OBGYNComment on above: ArrivedStart: 13-10-6205ZTIUE-19 Vaccine ( season)COVID-19 Vaccine ( season)[facility] HealthcareStart: 20-87-7072Zeqhxzimk vaccinationNOMS HealthcareStart: 02-18-2025 End: 02-15-8163Sqzlqrc encounter xjckhuoey43/25/2025 10:10 AM EDT Office Visit [facility] [address] [facility] [phone] Keiko Brennan, DO [address] [place] [address] [facility] BCP OBStart: 10-21-2024 End: 45-87-6725Rgkvuhi encounter procedureNOMS BCP OBComment on above:Arrived Start: 09-16-2024 End: 33-98-8024Ihdvnymphkbll hormone (AMH)Antimullerian hormone (AMH) Lab Routine Irregular periods/menstrual cycles Expected: 09/16/2024, Expires: 09/16/2025PR HealthcareComment on above:Expected: 09/16/2024, Expires: 09/16/2025Start: 09-16-2024 End: 67-53-0302NIG W Auto Differential panel - BloodCBC and differential Lab Routine Irregular periods/menstrual cycles Expected: 09/16/2024 (Approximate), Expires: 09/16/2025 HealthcareComment on above:Expected: 09/16/2024 (Approximate), Expires: 09/16/2025Start: 09-16-2024 End: 65-74-6607DJHLOTTN Lab Routine Irregular periods/menstrual cycles Expected: 09/16/2024, Expires: 09/16/2025 HealthcareComment on above:Expected: 09/16/2024, Expires: 09/16/2025Start: 09-16-2024 End: 96-14-9264SAOW-sulfateDHEA-sulfate Lab Routine Irregular periods/menstrual cycles Expected: 09/16/2024 (Approximate), Expires: 09/16/2025 Healthcare Comment on above:Expected: 09/16/2024 (Approximate), Expires: 09/16/2025Start: 09-16-2024 End: 55-49-6521Avsgsfmc stimulating hormoneFollicle stimulating hormone Lab Routine Irregular periods/menstrual cycles Expected: 09/16/2024 (Approximate), Expires: 09/16/2025PR HealthcareComment on above:Expected: 09/16/2024 (Approximate), Expires: 09/16/2025Start: 09-16-2024 End: 75-93-4142gTE, quantitative, pregnancyhCG, quantitative, Lab Routine Irregular periods/menstrual cycles Expected: 09/16/2024 (Approximate), Expires: 09/16/2025NOPR HealthcareComment on above:Expected: 09/16/2024 (Approximate), Expires: 09/16/2025Start: 09-16-2024 End: 50-39-5546Bbpletzcqh A1c/Hemoglobin.total in BloodHemoglobin A1c Lab Routine Irregular periods/menstrual cycles Expected: 09/16/2024 (Approximate), Expires: 09/16/2025NOPR HealthcareComment on above:Expected: 09/16/2024 (Approximate), Expires: 09/16/2025Start: 09-16-2024 End: 37-25-1408Eaomzgpjjeg hormoneLuteinizing hormone Lab Routine Irregular periods/menstrual cycles Expected: 09/16/2024 (Approximate), Expires: 09/16/2025 [facility] HealthcareComment on above:Expected: 09/16/2024 (Approximate), Expires: 09/16/2025Start: 09-16-2024 End: 31-13-0974Irexyftddih [Units/volume] in Serum or PlasmaTSH Lab Routine Irregular periods/menstrual cycles Expected: 09/16/2024 (Approximate), Expires: 09/16/2025[facility] HealthcareComment on above:Expected: 09/16/2024 (Approximate), Expires: 09/16/2025Start: 09-16-2024 End: 31-76-8340Ocyzakbcq (T4) free [Mass/volume] in Serum or PlasmaT4, free Lab Routine Irregular periods/menstrual cycles Expected: 09/16/2024 (Approximate), Expires: 09/16/2025NOPR HealthcareComment on above:Expected: 09/16/2024 (Approximate), Expires: 09/16/2025Start: 09-16-2024 End: 52-54-8106WS for pregnancyUS PELVIS-TRANSVAG IF INDICATED Imaging Routine Irregular periods/menstrual cycles Expected: 09/16/2024 (Approximate), Expires: 09/16/2025[facility] HealthcareComment on above:Expected: 09/16/2024 (Approximate), Expires: 09/16/2025Start: 85-18-7455Sfxucirsg vaccinationInfluenza Vaccine (#1) [facility] HealthcareStart: 13-02-3223Rsdzvbhsw for malignant neoplasm of cervixNOMS HealthcareStart: 29-83-8043WTM Vaccines (1 - 3-dose SCDM series)HPV Vaccines (1 - 3-dose SCDM series)[facility] HealthcareStart: 67-57-3121Ceiujgwkf for malignant neoplasm of cervixPap SmearNOMS HealthcareStart: 45-46-6985Oglbtbach B Vaccines (1 of 3 - 19+ 3-dose series)Hepatitis B Vaccines (1 of 3 - 19+ 3-dose series) NOM HealthcareStart: 70-57-6941Xpfmdhm of varicella vaccinationVaricella Vaccines (1 of 2 - 13+ 2-dose series)[facility] HealthcareStart: 1993 DTaP/Tdap/Td Vaccines (1 - Tdap)DTaP/Tdap/Td Vaccines (1 - Tdap)[facility] Healthcare Start: 82-60-6605GFC Vaccines (1 of 1 - Standard series)MMR Vaccines (1 of 1 - Standard series)[facility] Cervical or vaginal smear or scraping studyPap Smear Pathology and Cytology Routine Well woman exam with routine gynecological exam Ordered: 09/16/2024[facility] Work Phone: comment on above:Ordered: 09/16/2024ytology Cervical or vaginal smear or scraping studyPap Smear Pathology and Cytology Routine Well woman exam with routine gynecological exam Ordered: 09/18/2025[facility] Work Phone: comment on above:Ordered: 09/18/2025Human papilloma virus DNA [Presence] in Unspecified specimen by Probe with amplificationHPV DNA probe, amplified Microbiology Routine Well woman exam with routine gynecological exam Ordered: 09/16/2024[facility] HealthcareComment on above:Ordered: 09/16/2024 Human papilloma virus DNA [Presence] in Unspecified specimen by Probe with amplificationHPV DNA probe, amplified Microbiology Routine Well woman exam with routine gynecological exam Ordered: 09/18/2025[facility] HealthcareComment on above: Ordered: 09/18/2025 Payers DatePayer CategoryPayerPolicy [id number] 2023Medicaid [place] [employer] [place] [id number] [id number] Social History DateTypeDetailFacilityTobacco smoking status NHISTobacco smoking consumption unknownTIM[facility]ANOG[facility] HealthcareStart: 36-34-5508Akg assigned at birthFeMurphy [facility] HealthcareStart: 83-46-3896Uhlriz identityIdentifies as female gender (finding) [facility] HealthcareStart: 60-56-5146Vmqwac orientationBisexual (finding)[facility] HealthcareStart: 32-25-6687BozQrcgzaVXKB Healthcare History of Present illness Narrative 09-18-2025 Note Date & AuglMydgNxzxwfif67-16-0078 History of Present illness Narrative* NENITA Estrada - 09/18/2025 10:00 AM EDT Reason for Appointment: Patient ID: Heather Murphy is a 39 y.o. female who presents [...] nursing note reviewed. Exam conducted with a pressure controller present. Vitals: Estimated body mass index is [...] Present illness Narrative 02-18-2025 Note Date & ZfcaFwpmCpaqqqqi17-99-0031 History of Present illness Narrative* Carolyn Edwards LPN - 02/18/2025 10:10 AM EDT Reason for Appointment: Patient ID: Heather Murphy is a 39 y.o. female who presents [...] nursing note reviewed. Exam conducted with a pressure controller present. Vitals: Estimated body mass index is [...] Present illness Narrative 10-21-2024 Note Date & IovgIsvzPhdirclw03-49-8811 History of Present illness Narrative* Carolyn Edwards, DIRECTOR DISTRIBUTION - 10/21/2024 11:10 AM EST Reason for Appointment: Patient ID: Heather Murphy is a 38 y.o. female who presents [...] nursing note reviewed. Exam conducted with a pressure controller present. Vitals: Estimated body mass index is [...] Present illness Narrative 09-16-2024 Note Date & CvtqFlrfNxfrkihw03-70-4394 History of Present illness Narrative* Arlette Whelan LPN - 09/16/2024 11:00 AM EDT Reason for Appointment: Patient ID: Heather Murphy is a 38 y.o. female who presents [...] nursing note reviewed. Exam conducted with a pressure controller present. Vitals: Estimated body mass index is [...] Arlette Whelan LPN on behalf of: Keiko rBennan DO documented in this encounter[facility] Evaluation note Note Date & TypeNoteFacilityEvaluation note* Diagnosis Well woman exam with routine gynecological exam Routine gynecological examination PCOS (polycystic ovarian syndrome) Polycystic ovaries Irregular periods/menstrual cycles documented in this encounter [facility] Healthcare Evaluation note Note Date & TypeNoteFacilityEvaluation note* Diagnosis Menorrhagia with irregular cycle documented in this encounter [facility] Healthcare Evaluation note Note Date & TypeNoteFacilityEvaluation note* Diagnosis Encounter for follow-up Female infertility Female infertility of unspecified origin documented in this encounter [facility] Healthcare Evaluation note Note Date & TypeNoteFacilityEvaluation note* Diagnosis Well woman exam with routine gynecological exam Routine gynecological examination documented in this encounter [facility] Healthcare Summary Purpose Family History No Family History Records FoundNo Family History Records FoundNo Family History Records Found Advance Directives No Advanced Directives Records FoundNo Advanced Directives Records FoundNo Advanced Directives Records Found Additional Source Comments INFORMATION SOURCE (unrecogn ized section and content) DATE CREATED AUTHOR 09/06/2022 DATE CREATED AUTHOR AUTHOR'S ORGANIZ ATION 03/08/2025 [facility] DATE CREATED AUTHOR AUTHOR'S ORGANIZ ATION 09/19/2025 [facility] EPIC Reason for Visit (unrecogniz ed section and content) ReasonCommentsWell Women VisitReasonCommentsMenorrhagiaReasonCommentsFollow-upPt present today for a f/up visit for fertility. As of 01/06/2025 it has been her 3rd round of Femara and HSG was discussed at that visit. Care Teams (unrecognized sec tion and content) Team MemberRelationshipSpecialtyStart DateEnd Date Rosemarie Kang MD [address] [place] [address] PCP - JOHN APONTE02/26/24Team MemberRelationshipSpecialtyStart DateEnd Date Rosemarie Kang MD [address] [place] [address] PCP - JOHN APONTE02/26/24Team MemberRelationshipSpecialtyStart DateEnd Date WonderRosemarie garcia MD [address] [place] [address] PCP - [facility] [place] [facility]02/26/24Team MemberRelationshipSpecialtyStart DateEnd Date WonderRosemarie garcia MD [address] [place] [address] PCP - [facility] [place] [facility]02/26/24Team MemberRelationshipSpecialtyStart DateEnd Date WonderRosemarie garcia MD [address] [place] [address] PCP - [facility] [place] [facility]02/26/24Team MemberRelationshipSpecialtyStart DateEnd Date WonderRosemarie garcia MD PCP - [facility] [place] [facility]02/26/24Team MemberRelationshipSpecialtyStart DateEnd Date WonderRosemarie garcia MD PCP - [facility] [place] [facility]02/26/24Team MemberRelationshipSpecialtyStart DateEnd Date WonderRosemarie garcia MD PCP - [facility] [place] [facility]02/26/24Team MemberRelationshipSpecialtyStart DateEnd Date WonderRosemarie garcia MD PCP - [facility] [place] [facility]02/26/24Team MemberRelationshipSpecialtyStart DateEnd Date WonderRosemarie garcia MD PCP - [facility] [place] [facility]02/26/24Team MemberRelationshipSpecialtyStart DateEnd Date WonderRosemarie garcia MD PCP - [facility] [place] [facility]02/26/24 FOR RECORDS PERTAINING TO PATIENTS WHO [...] BE BASED ON THE PRIMARY CLINICAL RECORDS. [facility] HospitalSt[facility]. provides no warranty or guarantee of the accuracy or completeness of information in this document.
== END 2025-11-26 10:09 | disposition home or self-care (01) ==
LOC: LAB 10:09
PROVIDERS: Visit Provider Obstetrics & Gynecology
DX: N97.0 Female infertility associated with anovulation (principal)
CPT/HCPCS: 36415; 84144